=== PATIENT | female | born 1950 | race Caucasian/White ===

== ENCOUNTER 2018-09-23 21:15 | Emergency (ER) | payer OTHER ==
--- OUTSIDE RECORDS SUMMARY | 2018-09-23 21:17 | XMS REPORT ---
:1950 [facility] Address [address] [place] [address] [address]. [address] [place] [address] Care Team Providers Name Role Phone ENID RAE Unavailable Unavailable Problems This patient has no known problems. Allergies, Adverse Reactions, Alerts This patient has no known allergies or adverse reactions. Medications This patient has no known medications. Results Test Description Test Time Test Comments Text Results Atomic Results Result Comments PLATELET AGGREGATION: FUNCTION SCREEN 2016-07-16 10:08:00 Test Item Value Reference Range Comments WEAK ADP RESULT(BEAKER) (test dtnr=1158) 79 % 60-91 PLATELET FUNCTION SCREEN INTERP (BEAKER) 60-100% indicates normal platelet (test ojbv=1781) function MIFT-QCQTZBWYAZJ-5800 (BEAKER) (test Emanuel Rosas M.D. (electonic czrj=1235) signature) PLATELET COUNT AGG (BEAKER) (test 132 K/CU MM 150-430 nomm=4227) Platelet Function Screen results may be falsely low with platelet counts<100, 000/cu mm.POCT-GLUCOSE [id number] 12:30:00 Test Item Value Reference Range Comments POC-GLUCOSE METER (BEAKER) 102 mg/dL 70-110 TESTED AT [address] (test gkky=2915) [place] [id number] HEMOGLOBIN [id number] 10:45:00 Test Item Value Reference Range Comments HEMOGLOBIN A1C (BEAKER) (test hnrn=002) 7.1 % 4.3-6.1 POCT-GLUCOSE [id number] 07:42:00 Test Item Value Reference Range Comments POC-GLUCOSE METER (BEAKER) 118 mg/dL 70-110 TESTED AT [address] (test ynpn=9823) [facility] [address] [id number] 01:11:00 Test Item Value Reference Range Comments PHOSPHORUS (BEAKER) (test jehd=741) 2.7 mg/dL 2.3-4.7 [id number] 01:11:00 Test Item Value Reference Range Comments MAGNESIUM (BEAKER) (test xxyp=039) 1.7 mg/dL 1.6-2.6 BASIC METABOLIC [id number] 01:11:00 Test Item Value Reference Range Comments SODIUM (BEAKER) (test 137 meq/L 136-145 sduh=734) POTASSIUM (BEAKER) (test 3.8 meq/L 3.5-5.1 prdp=063) CHLORIDE (BEAKER) (test 101 meq/L 98-107 cpsd=872) CO2 (BEAKER) (test 29 meq/L 22-29 hsnn=538) BLOOD UREA NITROGEN 11 mg/dL 7-21 (BEAKER) (test pcvo=942) CREATININE (BEAKER) (test 0.71 mg/dL 0.57-1.25 gove=269) GLUCOSE RANDOM (BEAKER) 129 mg/dL 70-105 (test qtrc=314) CALCIUM (BEAKER) (test 9.0 mg/dL 8.4-10.2 vjve=111) EGFR (BEAKER) (test 83 mL/min/1.73 sq m ESTIMATED GFR IS NOT vhsj=2346) ACCURATE CREATININE CLEARANCE IN PREDICTING GLOMERULAR FILTRATION RATE. ESTIMATED GFR IS NOT APPLICABLE FOR DIALYSIS PATIENTS. CBC W/PLT COUNT & AUTO [id number] 00:57:00 Test Item Value Reference Range Comments WHITE BLOOD CELL COUNT (BEAKER) (test hnyq=269) 10.6 K/ L 4.0-10.0 RED BLOOD CELL COUNT (BEAKER) (test lcvd=587) 4.50 M/ L 4.00-5.00 HEMOGLOBIN (BEAKER) (test bgfr=851) 12.4 GM/DL 12.0-15.0 HEMATOCRIT (BEAKER) (test wzog=436) 37.6 % 36.0-45.0 MEAN CORPUSCULAR VOLUME (BEAKER) (test nwmk=220) 83.6 fL 82.0-99.0 MEAN CORPUSCULAR HEMOGLOBIN (BEAKER) (test 27.5 pg 27.0-33.0 dhsl=558) MEAN CORPUSCULAR HEMOGLOBIN CONC (BEAKER) (test 32.9 GM/DL 32.0-36.0 bdro=633) RED CELL DISTRIBUTION WIDTH (BEAKER) (test 12.8 % 10.3-14.2 nhol=587) PLATELET COUNT (BEAKER) (test abup=280) 244 K/CU MM 150-430 MEAN PLATELET VOLUME (BEAKER) (test rhaf=344) 6.8 fL 6.5-10.5 NUCLEATED RED BLOOD CELLS (BEAKER) (test 0 /100 WBC 0-0 eeyd=385) NEUTROPHILS RELATIVE PERCENT (BEAKER) (test 56 % vduk=768) LYMPHOCYTES RELATIVE PERCENT (BEAKER) (test 27 % djzn=780) MONOCYTES RELATIVE PERCENT (BEAKER) (test 11 % ezbp=669) EOSINOPHILS RELATIVE PERCENT (BEAKER) (test 5 % zogs=473) BASOPHILS RELATIVE PERCENT (BEAKER) (test 0 % pvyc=579) NEUTROPHILS ABSOLUTE COUNT (BEAKER) (test 5.96 K/ L 1.80-8.00 vxuu=043) LYMPHOCYTES ABSOLUTE COUNT (BEAKER) (test 2.89 K/ L 1.48-4.50 mbga=809) MONOCYTES ABSOLUTE COUNT (BEAKER) (test 1.12 K/ L 0.00-1.30 lcky=649) EOSINOPHILS ABSOLUTE COUNT (BEAKER) (test 0.57 K/ L 0.00-0.50 scqm=381) BASOPHILS ABSOLUTE COUNT (BEAKER) (test 0.05 K/ L 0.00-0.20 qpfx=607) 0.00POCT-GLUCOSE [id number] 21:49:00 Test Item Value Reference Range Comments POC-GLUCOSE METER (BEAKER) 172 mg/dL 70-[address] [facility] [address] [facility] (test kxws=5229) [facility] [id number]
[2018-09-23] MEDS ORDERED: ALBUTEROL 2.5 MG/3 ML NEB SOL ONE (22:17)
[2018-09-23] MEDS ORDERED: IPRATROPIUM BROM 0.5MG/2.5ML ONE (22:17)
[2018-09-23 22:58] LABS: Absolute Lymphocytes (CBC) 3.9 K/uL (0.7-4.9); Absolute Monocytes 0.8 K/uL (0.1-1.3); Absolute Neutrophil 4.1 K/uL (1.8-8.0); Basophils % 2.2 % (0-1.3); Eosinophils % 8.8 % (0-4.4); Hematocrit 43.1 % (36.0-45.0); Lymphocytes % 39.7 % (15.3-44.8); MPV 8.9 fL (7.6-11.3); Monocytes % 7.7 % (3.3-12.3); RBC Red Blood Cell Count 4.98 M/uL (3.86-4.86)
[2018-09-23 22:59] LABS: Protime INR 1.03
[2018-09-23 23:11] LABS: ALT/SGPT 37 U/L (12-78); AST/SGOT 23 U/L (15-37); BUN Blood Urea Nitrogen 10 mg/dL (7-18); Bicarbonate 30 mmol/L (21-32); Glucose Level 262 mg/dL (74-106); Potassium 3.4 mmol/L (3.5-5.1); Sodium Level 139 mmol/L (136-145)
[2018-09-23 23:12] LABS: Albumin 3.7 g/dL (3.4-5.0); Alkaline Phosphatase 54 U/L (45-117); Bilirubin Direct 0.2 mg/dL (0-0.2); Bilirubin Total 0.5 mg/dL (0.2-1.0); Magnesium 1.9 mg/dL (1.8-2.4); NT PRO-BNP 50 pg/mL (<125); Protein, Total 7.8 g/dL (6.4-8.2); Troponin (Emerg Dept Use Only) < 0.02 ng/mL (0.0-0.045)
[2018-09-24] MEDS ORDERED: INSULIN -REGULAR HUMAN 50 UNIT/0.5 ML ML ONE (00:06)
[2018-09-24] MEDS ORDERED: METHYLPREDNISOLONE 125 MG INJ ONE (00:07)
--- NOTE | 2018-09-24 02:41 | ER ---
Nurse's Notes [facility] Name: Sarah Parnell Age: 67 yrs Sex: Female : 1950 Arrival Date: 09/23/2018 Time: 21:20 Bed 20 Private MD: Diagnosis: Shortness of breath Presentation: 09/23 21:45 Acuity: ALTON 3 ea 21:45 Presenting complaint: Patient states: Pt reports she started feeling short of breath in ea the past couple of days, started having a cough and congestion. Transition of care: patient was not received from another setting of care. Onset of symptoms was September 23, 2018. Risk Assessment: Do you want to hurt yourself or someone else? Patient reports no desire to harm self or others. Initial Sepsis Screen: Does the patient meet any 2 criteria? No. Patient's initial sepsis screen is negative. Does the patient have a suspected source of infection? No. Patient's initial sepsis screen is negative. Care prior to arrival: None. 21:45 Method Of Arrival: Wheelchair ea Triage Assessment: 21:45 General: Appears uncomfortable, Behavior is calm, cooperative, appropriate for age. ea Pain: Denies pain. EENT: Reports nasal congestion. EENT: Reports nasal congestion. Neuro: Level of Consciousness is awake, alert, obeys commands, Oriented to person, place, time, situation. Cardiovascular: Patient's skin is warm and dry. flavio lower extremity edema. Respiratory: Reports Airway is patent Respiratory effort is even, unlabored, Respiratory pattern is regular, symmetrical, Breath sounds are coarse bilaterally. Breath sounds with wheezes bilaterally. Parent/caregiver reports the patient having cough that is. GI: No signs and/or symptoms were reported involving the gastrointestinal system. Derm: Skin is pink, warm \T\ dry. Historical: - Allergies: 23:00 NKA; ea - Home Meds: 23:00 Metformin Oral [Active]; Synthroid 225 mcg Oral tab once daily [Active]; unknown BP med ea [Active]; venlafaxine Oral [Active]; Wellbutrin 100 mg Oral tab 1 tab 3 times per day [Active]; - PMHx: 23:00 Hypothyroidism; Hypertension; Diabetes - NIDDM; Depression; ea - PSHx: 23:00 lap band; Abdominal surgery infection; Ovarian cyst; ea - Immunization history:: Adult Immunizations up to date. - Social history:: Smoking status: Patient/guardian denies using tobacco. - Ebola Screening: : No symptoms or risks identified at this time. Screenin:40 Abuse screen: Denies threats or abuse. Nutritional screening: No deficits noted. ea Tuberculosis screening: No symptoms or risk factors identified. Fall Risk None identified. Assessment: 21:45 Reassessment: See triage assessment. Pain: Denies pain. ea 22:30 Reassessment: Patient and/or family updated on plan of care and expected duration. Pain ea level reassessed. Patient is alert, oriented x 3, equal unlabored respirations, skin warm/dry/pink. 23:50 Reassessment: Patient and/or family updated on plan of care and expected duration. Pain ea level reassessed. Patient is alert, oriented x 3, equal unlabored respirations, skin warm/dry/pink. 09/24 01:40 Reassessment: Patient and/or family updated on plan of care and expected duration. Pain ea level reassessed. Patient is alert, oriented x 3, equal unlabored respirations, skin warm/dry/pink. Pt taken to CT. 01:55 Reassessment: Patient and/or family updated on plan of care and expected duration. Pain ea level reassessed. Patient is alert, oriented x 3, equal unlabored respirations, skin warm/dry/pink. Pt returned from CT. 02:50 Reassessment: Patient and/or family updated on plan of care and expected duration. Pain ea level reassessed. Attempted to call family for bulk picker, daughter did not answer phone, no voice message option. Will attempt to call again. Max [phone]. 03:22 Reassessment: Patient and/or family updated on plan of care and expected duration. Pain ea level reassessed. Patient is alert, oriented x 3, equal unlabored respirations, skin warm/dry/pink. Pt attempting to call daughter for ride. 03:30 Reassessment: Patient and/or family updated on plan of care and expected duration. Pain ea level reassessed. Patient is alert, oriented x 3, equal unlabored respirations, skin warm/dry/pink. Pt unable to contact daughter will attempt to call back at four. 04:22 Reassessment: Patient and/or family updated on plan of care and expected duration. Pain ea level reassessed. Pt resting with eyes closed, respirations even and unlabored. Chest expansions even and symmetrical. 04:28 Reassessment: Attempted to call pt family, will attempt to call family at 5 AM. ea 04:48 Reassessment: Patient and/or family updated on plan of care and expected duration. Pain ea level reassessed. Patient is alert, oriented x 3, equal unlabored respirations, skin warm/dry/pink. Discharge instructions given to patient, awaiting on daughter to call back. Patient states feeling better. 05:33 Reassessment: Attempted to call daughter, no answer. will attempt again at 0600. jb4 Vital Signs: 09/23 21:45 BP 120 / 60; Pulse 79; Resp 20; Temp 97.8; Pulse Ox 98% on R/A; Weight 95.25 kg; Height ea 5 ft. (152.40 cm); 22:30 BP 114 / 80; Pulse 89; Resp 20; Pulse Ox 96% on R/A; ea 23:45 BP 121 / 49; Pulse 79; Resp 20; Pulse Ox 96% on R/A; ea 09/24 00:00 BP 119 / 56 (art line/); Pulse 73; Resp 18; Temp 97.6; Pulse Ox 96% on R/A; ea 01:47 BP 107 / 77; Pulse 79; Resp 19; Pulse Ox 96% on R/A; ea 02:00 BP 108 / 49; Pulse 76; Resp 18; Pulse Ox 96% on R/A; ea 03:18 BP 117 / 52; Pulse 87; Resp 20; Temp 98.0; Pulse Ox 99% ; ea 04:20 BP 131 / 69; Pulse 88; Resp 18; Pulse Ox 95% on R/A; ea 09/23 21:45 Body Mass Index 41.01 (95.25 kg, 152.40 cm) ea ED Course: 09/23 21:20 Patient arrived in ED. am2 21:30 Inserted saline lock: 20 gauge in right forearm, using aseptic technique. ea 21:44 Chitra Zapata, VELIA is Primary Nurse. ea 21:45 Tejinder Pearson PA is PHCP. cp 21:45 Tejinder Santos MD is Attending Physician. cp 21:45 Patient has correct armband on for positive identification. Placed in gown. Bed in low ea position. Call light in reach. Side rails up X2. Pulse ox on. NIBP on. 21:45 Arm band placed on right wrist. Patient placed in an exam room, on a stretcher, on ea nuclear monitoring technician, on pulse oximetry. 21:45 Patient maintains SpO2 saturation greater than 95% on room air. ea 22:33 XRAY Chest (1 view) In Process Unspecified. EDMS 22:55 Triage completed. ea 09/24 02:14 CT Chest For PE Angio In Process Unspecified. EDMS 03:19 No provider procedures requiring assistance completed. ea 03:48 CT completed. Patient tolerated procedure well. Patient moved to CT via stretcher. Patient moved back from CT. 04:44 IV discontinued, intact, bleeding controlled, No redness/swelling at site. Pressure ea dressing applied. Administered Medications: 09/23 22:10 Drug: Albuterol - atroVENT (3:1) (2.5 mg - 0.5 mg) 3 ml Route: Nebulizer; ea 22:30 Follow up: Response: No adverse reaction ea 23:45 Drug: Insulin Regular Human 5 units {Co-Signature: sigrid (Stephen Shaw RN).} Route: IVP; ea Site: right forearm; 09/24 04:04 Follow up: Response: No adverse reaction ea 00:00 Drug: SOLU-Medrol 125 mg Route: IVP; Site: right antecubital; ea 01:39 Follow up: Response: No adverse reaction ea Point of Care Testing: Blood Glucose: 02:27 Blood Glucose: 184 mg/dL; ea Ranges: Outcome: 02:40 Discharge ordered by MD. rr5 04:49 Condition: improved ea 04:49 Discharge instructions given to patient, Instructed on discharge instructions, follow up and referral plans. medication usage, Demonstrated understanding of instructions, follow-up care, medications, Prescriptions given X 3. 06:50 Discharged to home ambulatory, with family. jb4 06:56 Patient left the ED. mt Signatures: Dispatcher [employer] Moshe Leavitt Tejinder Pearson PA PA cp Bryson, James, RN RN jb4 Colette Jackson [place] Chitra Zapata RN RN ea Roque, Raymond, RN RN rr5 Stephen [email or web address] Corrections: (The following items were deleted from the chart) 05/20 22:55 21:45 BP 120 / 60; Pulse 79bpm; Resp 18bpm; Pulse Ox 98% RA; Temp 97.8F; 95.25 kg; ea Height 5 ft.; BMI: 41.0; ea 09/24 03:32 02:50 Reassessment: Patient and/or family updated on plan of care and expected ea duration. Pain level reassessed. Attempted to call family for bulk picker, daughter did not answer phone, no voice message option. Will attempt to call again ea
--- NOTE | 2018-09-24 02:42 | EDPHYS ---
Physician Documentation [facility] Name: Sarah Parnell Age: 67 yrs Sex: Female : 1950 Arrival Date: 09/23/2018 Time: 21:20 Bed 20 Private MD: ED Physician Tejinder Santos HPI: 09/23 22:00 This 67 yrs old Female presents to ER via Wheelchair with complaints of Chest cp Pain, Shortness Of Breath. 22:00 The patient has shortness of breath at rest. Onset: The symptoms/episode began/occurred cp 3 day(s) ago. Duration: The symptoms are continuous. Associated signs and symptoms: Pertinent negatives: chest pain, productive cough, diaphoresis, fever, hemoptysis, vomiting. Severity of symptoms: in the emergency department the symptoms are unchanged despite home interventions. The patient has experienced similar episodes in the past, multiple times. Historical: - Allergies: 23:00 NKA; ea - Home Meds: 23:00 Metformin Oral [Active]; Synthroid 225 mcg Oral tab once daily [Active]; unknown BP med ea [Active]; venlafaxine Oral [Active]; Wellbutrin 100 mg Oral tab 1 tab 3 times per day [Active]; - PMHx: 23:00 Hypothyroidism; Hypertension; Diabetes - NIDDM; Depression; ea - PSHx: 23:00 lap band; Abdominal surgery infection; Ovarian cyst; ea - Immunization history:: Adult Immunizations up to date. - Social history:: Smoking status: Patient/guardian denies using tobacco. - Ebola Screening: : No symptoms or risks identified at this time. ROS: 22:20 Constitutional: Negative for body aches, chills, fever, poor PO intake. cp 22:20 Eyes: Negative for injury, pain, redness, and discharge. cp 22:20 ENT: Negative for drainage from ear(s), ear pain, sore throat, difficulty swallowing, difficulty handling secretions. 22:20 Cardiovascular: Negative for chest pain, edema, palpitations. 22:20 Respiratory: Positive for cough, with no reported sputum, shortness of breath, Negative for hemoptysis. 22:20 Abdomen/GI: Negative for abdominal pain, nausea, vomiting, and diarrhea, constipation, black/tarry stool, rectal bleeding. 22:20 Back: Negative for pain at rest, pain with movement, radiated pain. 22:20 : Negative for urinary symptoms. 22:20 Skin: Negative for cellulitis, rash. 22:20 Neuro: Negative for altered mental status, dizziness, headache, syncope, weakness. 22:20 All other systems are negative. Exam: 22:25 Constitutional: The patient appears in no acute distress, alert, awake, cp non-diaphoretic, non-toxic, well developed, well nourished, obese. 22:25 Head/Face: Normocephalic, atraumatic. cp 22:25 Eyes: Periorbital structures: appear normal, Conjunctiva: normal, no exudate, no injection, Sclera: no appreciated abnormality, Lids and lashes: appear normal, bilaterally. 22:25 ENT: External ear(s): are unremarkable, Ear canal(s): are normal, clear, TM's: dullness, bilaterally, Nose: is normal, Mouth: Lips: moist, Oral mucosa: pink and intact, moist, Posterior pharynx: is normal, airway is patent, no erythema, no exudate. 22:25 Neck: ROM/movement: is normal, is supple, without pain, no range of motions limitations, no meningismus, no nuchal rigidity, Lymph nodes: no appreciated lymphadenopathy. 22:25 Chest/axilla: Inspection: normal, Palpation: is normal, no crepitus, no tenderness. 22:25 Cardiovascular: Rate: normal, Rhythm: regular, Edema: is not appreciated, JVD: is not appreciated. 22:25 Respiratory: the patient does not display signs of respiratory distress, Respirations: labored breathing, is not present, intercostal retractions, are absent, tachypnea, is not appreciated, Breath sounds: decreased breath sounds, that are mild, throughout, stridor, is not appreciated, wheezing: is not appreciated. 22:25 Abdomen/GI: Inspection: obese Bowel sounds: active, all quadrants, Palpation: abdomen is soft and non-tender, in all quadrants. 22:25 Back: pain, is absent, ROM is normal. 22:25 Skin: cellulitis, is not appreciated, no rash present. 22:25 Neuro: Orientation: to person, place \T\ time. Mentation: is normal, Cerebellar function: is grossly normal, Motor: moves all fours, strength is normal. Vital Signs: 21:45 BP 120 / 60; Pulse 79; Resp 20; Temp 97.8; Pulse Ox 98% on R/A; Weight 95.25 kg; Height ea 5 ft. (152.40 cm); 22:30 BP 114 / 80; Pulse 89; Resp 20; Pulse Ox 96% on R/A; ea 23:45 BP 121 / 49; Pulse 79; Resp 20; Pulse Ox 96% on R/A; ea 09/24 00:00 BP 119 / 56 (art line/); Pulse 73; Resp 18; Temp 97.6; Pulse Ox 96% on R/A; ea 01:47 BP 107 / 77; Pulse 79; Resp 19; Pulse Ox 96% on R/A; ea 02:00 BP 108 / 49; Pulse 76; Resp 18; Pulse Ox 96% on R/A; ea 03:18 BP 117 / 52; Pulse 87; Resp 20; Temp 98.0; Pulse Ox 99% ; ea 04:20 BP 131 / 69; Pulse 88; Resp 18; Pulse Ox 95% on R/A; ea 09/23 21:45 Body Mass Index 41.01 (95.25 kg, 152.40 cm) ea MDM: 09/23 21:46 Patient medically screened. colleen 22:15 Differential diagnosis: asthma, CHF exacerbation, Chronic Obstructive Pulmonary Disease cp pneumonia, pulmonary edema, Pulmonary Embolism Unstable Angina. 09/24 02:38 Data reviewed: vital signs, nurses notes, lab test result(s), EKG, radiologic studies, cp CT scan, plain films, and as a result, I will discharge patient. 02:38 Antibiotic administration: Not indicated, the patient does not have an appreciated cp infiltrate. Test interpretation: by ED physician or midlevel provider: ECG, plain radiologic studies. Response to treatment: the patient's symptoms have markedly improved after treatment, VSS. Symptoms markedly improved after treatment. Patient observed resting comfortably in exam room w/o use of supplemental oxygen, and as a result, I will discharge patient. 09/23 21:46 Order name: Basic Metabolic Panel; Complete Time: 23:17 bb 09/23 23:17 Interpretation: Normal except: K 3.4; GLUC 262; GFR 70. cp 09/23 21:46 Order name: CBC with Diff; Complete Time: 23:17 bb 09/23 23:17 Interpretation: Normal except: RBC 4.98; ABBY% 41.6; EOSINOPHIL % 8.8; BASO% 2.2. 09/23 21:46 Order name: LFT's; Complete Time: 23:17 09/23 23:18 Interpretation: Normal except: GLOB 4.1; A/G 0.9. 09/23 21:46 Order name: Magnesium; Complete Time: 23:17 09/23 21:46 Order name: NT PRO-BNP; Complete Time: 23:17 09/23 21:46 Order name: PT-INR; Complete Time: 00:04 09/23 21:46 Order name: Troponin (emerg Dept Use Only); Complete Time: 23:17 09/23 21:46 Order name: XRAY Chest (1 view) 09/23 23:56 Order name: LAB Add On 09/23 23:57 Order name: D-Dimer; Complete Time: 00:04 EDGA 09/24 00:04 Interpretation: Abnormal: D-DIMER 898. 09/24 00:04 Order name: CT Chest For PE Angio 09/23 21:46 Order name: EKG; Complete Time: 22:03 09/23 21:46 Order name: Cardiac monitoring; Complete Time: 23:37 09/23 21:46 Order name: EKG - Nurse/Tech; Complete Time: 22:30 09/23 21:46 Order name: IV Saline Lock; Complete Time: 22:51 09/23 21:46 Order name: Labs collected and sent; Complete Time: 22:51 09/23 21:46 Order name: O2 Per Protocol; Complete Time: 22:30 09/23 21:46 Order name: O2 Sat Monitoring; Complete Time: 22:30 bb Administered Medications: 09/23 22:10 Drug: Albuterol - atroVENT (3:1) (2.5 mg - 0.5 mg) 3 ml Route: Nebulizer; ea 22:30 Follow up: Response: No adverse reaction ea 23:45 Drug: Insulin Regular Human 5 units {Co-Signature: jb4 (Stephen Shaw RN).} Route: IVP; ea Site: right forearm; 09/24 04:04 Follow up: Response: No adverse reaction ea 00:00 Drug: SOLU-Medrol 125 mg Route: IVP; Site: right antecubital; ea 01:39 Follow up: Response: No adverse reaction ea Point of Care Testing: Blood Glucose: 02:27 Blood Glucose: 184 mg/dL; ea Ranges: Critical Glucose Levels:Adult <50 mg/dl or >400 mg/dl <40 mg/dl or >180 mg/dl Disposition: 09:57 Co-signature as Attending Physician, Tejinder Santos MD I agree with the assessment and colleen plan of care. Disposition: 09/24/18 02:40 Discharged to Home. Impression: Shortness of breath. - Condition is Stable. - Discharge Instructions: Aspirin and Your Heart, Shortness of Breath. - Prescriptions for Prednisone 20 mg Oral Tablet - take 2 tablet by ORAL route once daily for 5 days; 10 tablet. Albuterol Sulfate 2.5 mg /3 mL (0.083 %) Inhalation Solution for Nebulization - inhale 1 unit by NEBULIZATION route every 8 hours As needed; 1 box. Albuterol Sulfate 90 mcg/actuation - inhale 1-2 puff by INHALATION route every 4-6 hours; 1 Inhaler. - Medication Reconciliation Form, Thank You Letter, Antibiotic Education, Prescription Opioid Use form. - Follow up: Private Physician; When: 1 - 2 days; Reason: Recheck today's complaints. - Problem is new. - Symptoms have improved. Signatures: Dispatcher [employer] [facility] Tejinder Santos MD MD cha Ballard, Brenda, RN RN Tejinder Diehl PA PA cp Thompson, Moriah mt Antunez, Elena RN Sebastian Navas ea RN RN rr5 Stephen Shaw RN [email or web address] Corrections: (The following items were deleted from the chart) 09/23 23:58 23:57 D-DIMER+COAG.LAB.BRZ ordered. [facility] 09/24 06:56 02:40 09/24/2018 02:40 Discharged to Home. Impression: Shortness of breath. Condition mt is Stable. Forms are Medication Reconciliation Form, Thank You Letter, Antibiotic Education, Prescription Opioid Use. Follow up: Private Physician; When: 1 - 2 days; Reason: Recheck today's complaints. Problem is new. Symptoms have improved. rr5
--- NOTE | 2018-09-24 06:15 | EKG ---
Test Date: 2018-09-23 Test Time: 21:36:09 Prop Drawer: VALERIE MEASUREMENT RESULTS: Intervals: Rate: 81 [place]: 170 QRSD: 104 QT: 420 QTc: 487 [place]: P: 59 [place]: 170 QRS: 18 T: 58 INTERPRETIVE STATEMENTS: Normal sinus rhythm Possible Inferior infarct, age undetermined Cannot rule out Anterior infarct, age undetermined Abnormal ECG Compared to ECG 07/13/2016 19:30:56 Myocardial infarct finding now present Electronically Signed On 09-24-18 06:14:40 CDT by Kingsley Castanon
[2018-09-24 07:30] VITALS: TEMP 98
[2018-09-24 07:31] VITALS: BP 131/69; O2SAT 95
--- NOTE | 2018-09-24 08:28 | RAD REPORT ---
EXAM DESCRIPTION: RAD - Chest Single View - 09/23/2018 10:32 pm CLINICAL HISTORY: CHEST PAIN Chest pain. COMPARISON: Chest Single View dated 07/13/2016; Chest Single View dated 07/12/2016; CHEST SINGLE VIEW da nasrin 02/02/2015; CHEST SINGLE VIEW dated 06/16/2013; Chest For Pe Angio dated 09/24/2018 FINDINGS: Portable technique limits examination quality. Mild interstitial pulmonary edema likely present. The heart is normal in size. No displaced fractures .
--- NOTE | 2018-09-24 09:57 | RAD REPORT ---
EXAM DESCRIPTION: CT Angiography Chest With Intravenous Contrast CLINICAL HISTORY: The patient is 67 years old and is Female; SOB TECHNIQUE: Axial computed tomographic angiography images of the chest with intravenous contrast usin g pulmonary embolism protocol. Sagittal and coronal reformatted images were created and reviewed. This CT exam was performed using one or more of the following dose reduction techniques: automated exposure control, adjustment of the mA and/or kV according to patient size, and/or use of iterative reconstruction technique. MIP reconstructed images were created and reviewed. COMPARISON: No relevant prior studies available. FINDINGS: PULMONARY ARTERIES: The main pulmonary arteries and proximal segmental branches opacify normally and are without filling defect. AORTA: No acute findings. No thoracic aortic aneurysm. LUNGS: Unremarkable. No mass. No consolidation. PLEURAL SPACE: Unremarkable. No significant effusion. No pneumothorax. HEART: Unremarkable. No cardiomegaly. No significant pericardial effusion. No evidence of RV dysfunction. BONES/JOINTS: Minimal degenerative change of the spine is present. No acute fracture. No dis location. SOFT TISSUES: Unremarkable. LYMPH NODES: Unremarkable. No enlarged lymph nodes. TUBES, LINES AND DEVICES: A gastric lap band is present. IMPRESSION: The main pulmonary arteries and proximal segmental branches opacify normally and are wit hout filling defect. Remainder of the pulmonary vessels are inadequately evaluated secondary to mot ion artifact. Electronically signed by: Brook Walker MD 09/24/2018 2:15 AM CDT Due to temporary technical issues with the PACS/Fluency reporting system, reports are being signed by the in house radiologist as a courtesy to ensure prompt reporting. The interpreting radiologist is f ully responsible for the content of the report.
== END 2018-09-24 06:56 | disposition home or self-care (01) ==
LOC: ER 21:15
DX: R06.02 Shortness of breath (principal); R07.9 Chest pain, unspecified; E03.9 Hypothyroidism, unspecified; I10 Essential (primary) hypertension; E11.9 Type 2 diabetes mellitus without complications; F32.9 Major depressive disorder, single episode, unspecified; Z79.84 Long term (current) use of oral hypoglycemic drugs
CPT/HCPCS: 93005; 85025; 80048; 36415; 83735; 85610; 82962; 85379; 80076; 84484; 83880; 71275; 71045; 94640; 96375; 96374; 99285; Q9967; J2930

== ENCOUNTER 2019-06-18 10:47 | Emergency (ER) | payer OTHER ==
--- OUTSIDE RECORDS SUMMARY | 2019-06-18 10:49 | XMS REPORT ---
:1950 [facility] Address [address] [place] [address] [address] [place] [address] Care Team Providers Name Role Phone ENID RAE Kelsi Unavailable Unavailable Problems This patient has no known problems. Allergies, Adverse Reactions, Alerts This patient has no known allergies or adverse reactions. Medications This patient has no known medications. Results Test Description Test Time Test Comments Text Results Atomic Results Result Comments PLATELET AGGREGATION: FUNCTION SCREEN 2016-07-16 10:08:00 Test Item Value Reference Range Comments WEAK ADP RESULT(BEAKER) (test yryx=4506) 79 % 60-91 PLATELET FUNCTION SCREEN INTERP (BEAKER) 60-100% indicates normal platelet (test ipxk=4494) function [id number]-1585 (BEAKER) (test Emanuel Rosas M.D. (electonic txwu=7609) signature) PLATELET COUNT AGG (BEAKER) (test 132 K/CU MM 150-430 owtu=6022) Platelet Function Screen results may be falsely low with platelet counts<100, 000/cu mm.POCT-GLUCOSE [id number] 12:30:00 Test Item Value Reference Range Comments POC-GLUCOSE METER (BEAKER) 102 mg/dL 70-110 TESTED AT [place] [id number] [facility] (test xzwo=8852) [place] [address] HEMOGLOBIN [id number] 10:45:00 Test Item Value Reference Range Comments HEMOGLOBIN A1C (BEAKER) (test ctkl=985) 7.1 % 4.3-6.1 POCT-GLUCOSE [id number] 07:42:00 Test Item Value Reference Range Comments POC-GLUCOSE METER (BEAKER) 118 mg/dL 70-110 TESTED AT [place] [id number] [facility] (test bnfq=2482) [place] [id number] 01:11:00 Test Item Value Reference Range Comments PHOSPHORUS (BEAKER) (test otxa=075) 2.7 mg/dL 2.3-4.7 [id number] 01:11:00 Test Item Value Reference Range Comments MAGNESIUM (BEAKER) (test qgez=328) 1.7 mg/dL 1.6-2.6 BASIC METABOLIC [id number] 01:11:00 Test Item Value Reference Range Comments SODIUM (BEAKER) (test 137 meq/L 136-145 pypf=041) POTASSIUM (BEAKER) (test 3.8 meq/L 3.5-5.1 yngt=017) CHLORIDE (BEAKER) (test 101 meq/L 98-107 egko=092) CO2 (BEAKER) (test 29 meq/L 22-29 zrnv=639) BLOOD UREA NITROGEN 11 mg/dL 7-21 (BEAKER) (test eycx=872) CREATININE (BEAKER) (test 0.71 mg/dL 0.57-1.25 gost=569) GLUCOSE RANDOM (BEAKER) 129 mg/dL 70-105 (test pmaa=229) CALCIUM (BEAKER) (test 9.0 mg/dL 8.4-10.2 ukhe=540) EGFR (BEAKER) (test 83 mL/min/1.73 sq m ESTIMATED GFR IS NOT zhie=1713) ACCURATE CREATININE CLEARANCE IN PREDICTING GLOMERULAR FILTRATION RATE. ESTIMATED GFR IS NOT APPLICABLE FOR DIALYSIS PATIENTS. CBC W/PLT COUNT & AUTO [id number] 00:57:00 Test Item Value Reference Range Comments WHITE BLOOD CELL COUNT (BEAKER) (test fpnz=721) 10.6 K/ L 4.0-10.0 RED BLOOD CELL COUNT (BEAKER) (test ligh=191) 4.50 M/ L 4.00-5.00 HEMOGLOBIN (BEAKER) (test scqb=213) 12.4 GM/DL 12.0-15.0 HEMATOCRIT (BEAKER) (test knko=051) 37.6 % 36.0-45.0 MEAN CORPUSCULAR VOLUME (BEAKER) (test ufjs=258) 83.6 fL 82.0-99.0 MEAN CORPUSCULAR HEMOGLOBIN (BEAKER) (test 27.5 pg 27.0-33.0 yvxb=440) MEAN CORPUSCULAR HEMOGLOBIN CONC (BEAKER) (test 32.9 GM/DL 32.0-36.0 qitk=440) RED CELL DISTRIBUTION WIDTH (BEAKER) (test 12.8 % 10.3-14.2 arhp=502) PLATELET COUNT (BEAKER) (test deji=920) 244 K/CU MM 150-430 MEAN PLATELET VOLUME (BEAKER) (test ggrx=510) 6.8 fL 6.5-10.5 NUCLEATED RED BLOOD CELLS (BEAKER) (test 0 /100 WBC 0-0 wdes=833) NEUTROPHILS RELATIVE PERCENT (BEAKER) (test 56 % hywk=604) LYMPHOCYTES RELATIVE PERCENT (BEAKER) (test 27 % ahnf=147) MONOCYTES RELATIVE PERCENT (BEAKER) (test 11 % siea=747) EOSINOPHILS RELATIVE PERCENT (BEAKER) (test 5 % mqoa=865) BASOPHILS RELATIVE PERCENT (BEAKER) (test 0 % ysdg=741) NEUTROPHILS ABSOLUTE COUNT (BEAKER) (test 5.96 K/ L 1.80-8.00 udhf=768) LYMPHOCYTES ABSOLUTE COUNT (BEAKER) (test 2.89 K/ L 1.48-4.50 fdkk=861) MONOCYTES ABSOLUTE COUNT (BEAKER) (test 1.12 K/ L 0.00-1.30 qpzs=596) EOSINOPHILS ABSOLUTE COUNT (BEAKER) (test 0.57 K/ L 0.00-0.50 qbxt=126) BASOPHILS ABSOLUTE COUNT (BEAKER) (test 0.05 K/ L 0.00-0.20 dsij=681) 0.00POCT-GLUCOSE [id number] 21:49:00 Test Item Value Reference Range Comments POC-GLUCOSE METER (BEAKER) 172 mg/dL 70-110 TESTED AT [facility] [address] [place] [address] (test osna=3367) [facility] [address]
--- NOTE | 2019-06-18 11:33 | RAD REPORT ---
EXAM DESCRIPTION: RAD - Chest Single View - 06/18/2019 11:26 am CLINICAL HISTORY: weakness Chest pain. COMPARISON: Chest Pa And Lat (2 Views) dated 01/15/2019; Chest Single View dated 09/23/2018; Chest Sin gle View dated 07/13/2016; Chest Single View dated 07/12/2016 FINDINGS: Portable technique limits examination quality. The lungs are grossly clear. The heart is normal in size. No displaced fractures. IMPRESSION: No acute intrathoracic process suspected.
[2019-06-18 12:30] LABS: Absolute Lymphocytes (CBC) 2.9 K/uL (0.7-4.9); Basophils % 0.2 % (0-1.3); Hematocrit 43.4 % (36.0-45.0); Lymphocytes % 32.5 % (15.3-44.8); MPV 8.9 fL (7.6-11.3); RBC Red Blood Cell Count 5.08 M/uL (3.86-4.86)
[2019-06-18 12:37] LABS: Protime INR 1.07
[2019-06-18 12:51] LABS: Albumin 3.5 g/dL (3.4-5.0); Bilirubin Direct 0.1 mg/dL (0-0.2); Bilirubin Total 0.5 mg/dL (0.2-1.0); Magnesium 2.2 mg/dL (1.8-2.4); Protein, Total 8.1 g/dL (6.4-8.2); Troponin (Emerg Dept Use Only) 0.04 ng/mL (0.0-0.045)
--- NOTE | 2019-06-18 13:46 | ER ---
Nurse's Notes [facility] Name: Sarah Parnell Age: 68 yrs Sex: Female : 1950 Arrival Date: 06/18/2019 Time: 10:49 Bed 5 Private MD: Diagnosis: Hyperglycemia, unspecified;Diabetes Mellitus Presentation: 06/18 10:53 Presenting complaint: EMS states: Home BGL 497, 363 after 15units insulin. Pt reports hb feeling "not right.". Transition of care: patient was not received from another setting of care. Onset of symptoms was June 18, 2019. Risk Assessment: Do you want to hurt yourself or someone else? Patient reports no desire to harm self or others. Initial Sepsis Screen: Does the patient meet any 2 criteria? No. Patient's initial sepsis screen is negative. Does the patient have a suspected source of infection? No. Patient's initial sepsis screen is negative. Care prior to arrival: None. 10:53 Method Of Arrival: EMS: [facility] 10:53 Acuity: ALTON 3 hb Triage Assessment: 10:55 General: Appears in no apparent distress. Behavior is calm, cooperative. Pain: Pain hb currently is 5 out of 10 on a pain scale. EENT: No signs and/or symptoms were reported regarding the EENT system. Neuro: Level of Consciousness is awake, alert, obeys commands, Oriented to person, place, time, situation. Cardiovascular: Heart tones S1 S2 present Capillary refill < 3 seconds Patient's skin is warm and dry. Respiratory: Airway is patent Respiratory effort is even, unlabored, Respiratory pattern is regular, symmetrical, Breath sounds are clear bilaterally. GI: No signs and/or symptoms were reported involving the gastrointestinal system. : No signs and/or symptoms were reported regarding the genitourinary system. Derm: Skin is intact, is healthy with good turgor, Skin is pink, warm \\T\\ dry. Musculoskeletal: No signs and/or symptoms reported regarding the musculoskeletal system. Historical: - Allergies: 10:55 NKA; hb - Home Meds: 10:55 Metformin Oral [Active]; Synthroid 225 mcg Oral tab once daily [Active]; unknown BP med hb [Active]; venlafaxine Oral [Active]; Wellbutrin 100 mg Oral tab 1 tab 3 times per day [Active]; - PMHx: 10:55 Depression; Hypertension; Hypothyroidism; COPD; Diabetes - IDDM; hb - PSHx: 10:55 lap band; Abdominal surgery infection; Ovarian cyst; hb - Immunization history:: Adult Immunizations up to date. - Coronavirus screen:: The patient has NOT traveled to [place] in the past 14 days. The patient has NOT had contact with known/suspected case of Coronavirus? Proceed with normal triage procedures. - Social history:: Smoking status: Patient denies any tobacco usage or history of. - Ebola Screening: : No symptoms or risks identified at this time. Screenin:56 Abuse screen: Denies threats or abuse. Denies injuries from another. Nutritional hb screening: No deficits noted. Tuberculosis screening: No symptoms or risk factors identified. Fall Risk None identified. Assessment: 11:00 General: SEE TRIAGE. hb 12:00 Reassessment: Patient appears in no apparent distress at this time. Patient and/or hb family updated on plan of care and expected duration. Pain level reassessed. Patient is alert, oriented x 3, equal unlabored respirations, skin warm/dry/pink. Vital Signs: 10:51 BP 156 / 87; Pulse 82; Resp 20; Temp 98.3; Pulse Ox 96% on R/A; Weight 74.39 kg; Height hb 5 ft. 2 in. (157.48 cm); Pain 5/10; 12:00 BP 127 / 100; Pulse 80; Resp 16; Pulse Ox 99% on R/A; hb 14:00 BP 126 / 86; Pulse 80; Resp 15; Pulse Ox 99% on R/A; hb 10:51 Body Mass Index 30.00 (74.39 kg, 157.48 cm) hb ED Course: 10:49 Patient arrived in ED. em1 10:51 Leidy Ronquillo, RN is Primary Nurse. hb 10:52 Marty Davis MD is Attending Physician. kdr 10:54 Triage completed. hb 10:55 Arm band placed on. hb 10:56 Patient has correct armband on for positive identification. Placed in gown. Bed in low hb position. Call light in reach. Side rails up X 1. 11:05 EKG done, by scientific technical writer. reviewed by Marty Davis MD. at1 11:19 Inserted saline lock: 20 gauge in right forearm, using aseptic technique. Blood hb collected. 12:12 IV discontinued, intact, bleeding controlled, No redness/swelling at site. Pressure hb dressing applied. 12:17 Lab(s) recollected. Inserted saline lock: 22 gauge in right forearm, using aseptic hb technique. Blood collected. 14:00 No provider procedures requiring assistance completed. IV discontinued, intact, hb bleeding controlled, No redness/swelling at site. Pressure dressing applied. Administered Medications: No medications were administered Outcome: 13:45 Discharge ordered by . kdr 14:20 Discharged to home ambulatory. hb 14:20 Condition: stable 14:20 Discharge instructions given to patient, family, Instructed on discharge instructions, follow up and referral plans. medication usage, Demonstrated understanding of instructions, follow-up care, medications. 14:24 Patient left the ED. hb Signatures: Marty Davis MD MD kdr Martinez, Eric em1 Colette Conley, supervisor lending activities EKG Tat1 Leidy Ronquillo, RN RN hb
--- NOTE | 2019-06-18 13:46 | EDPHYS ---
Physician Documentation [facility] Name: Sarah Parnell Age: 68 yrs Sex: Female : 1950 Arrival Date: 06/18/2019 Time: 10:49 Bed 5 Private MD: ED Physician Marty Davis HPI: 06/18 17:03 This 68 yrs old Female presents to ER via EMS with complaints of High Blood kdr Sugar. 17:03 The patient or guardian reports hyperglycemia. Onset: The symptoms/episode kdr began/occurred at an unknown time. Associated signs and symptoms: Pertinent positives: None. Pertinent negatives: None. Current symptoms: In the emergency department the patient's symptoms are unchanged from the initial presentation, The patient was feeling off and poorly this morning but now is back ot baseline. The patient has not experienced similar symptoms in the past. The patient has not recently seen a physician. Historical: - Allergies: 10:55 NKA; hb - Home Meds: 10:55 Metformin Oral [Active]; Synthroid 225 mcg Oral tab once daily [Active]; unknown BP med hb [Active]; venlafaxine Oral [Active]; Wellbutrin 100 mg Oral tab 1 tab 3 times per day [Active]; - PMHx: 10:55 Depression; Hypertension; Hypothyroidism; COPD; Diabetes - IDDM; hb - PSHx: 10:55 lap band; Abdominal surgery infection; Ovarian cyst; hb - Immunization history:: Adult Immunizations up to date. - Coronavirus screen:: The patient has NOT traveled to [place] in the past 14 days. The patient has NOT had contact with known/suspected case of Coronavirus? Proceed with normal triage procedures. - Social history:: Smoking status: Patient denies any tobacco usage or history of. - Ebola Screening: : No symptoms or risks identified at this time. ROS: 17:03 Constitutional: Negative for fever, chills, and weight loss, Eyes: Negative for injury, kdr pain, redness, and discharge, Neck: Negative for injury, pain, and swelling, Cardiovascular: Negative for chest pain, palpitations, and edema, Respiratory: Negative for shortness of breath, cough, wheezing, and pleuritic chest pain, Abdomen/GI: Negative for abdominal pain, nausea, vomiting, diarrhea, and constipation, Back: Negative for injury and pain, : Negative for injury, bleeding, discharge, and swelling, MS/Extremity: Negative for injury and deformity, Skin: Negative for injury, rash, and discoloration, Neuro: Negative for headache, weakness, numbness, tingling, and seizure activity. Psych: Negative for depression, anxiety, suicide ideation, homicidal ideation, and hallucinations, Allergy/Immunology: Negative for hives, rash, and allergies, Hematologic/Lymphatic: Negative for swollen nodes, abnormal bleeding, and unusual bruising. 17:03 Endocrine: Positive for High sugar. Exam: 17:03 Constitutional: This is a well developed, well nourished obese patient who is awake, kdr alert, and in no acute distress. Head/Face: Normocephalic, atraumatic. Eyes: Pupils equal round and reactive to light, extra-ocular motions intact. Lids and lashes normal. Conjunctiva and sclera are non-icteric and not injected. Cornea within normal limits. Periorbital areas with no swelling, redness, or edema. Neck: Trachea midline, no thyromegaly or masses palpated, and no cervical lymphadenopathy. Supple, full range of motion without nuchal rigidity, or vertebral point tenderness. No Meningismus. Chest/axilla: Normal chest wall appearance and motion. Nontender with no deformity. No lesions are appreciated. Cardiovascular: Regular rate and rhythm with a normal S1 and S2. No gallops, murmurs, or rubs. Normal PMI, no JVD. No pulse deficits. Respiratory: Lungs have equal breath sounds bilaterally, clear to auscultation and percussion. No rales, rhonchi or wheezes noted. No increased work of breathing, no retractions or nasal flaring. Abdomen/GI: Soft, non-tender, with normal bowel sounds. No distension or tympany. No guarding or rebound. No evidence of tenderness throughout. Back: No spinal tenderness. No costovertebral tenderness. Full range of motion. Skin: Warm, dry with normal turgor. Normal color with no rashes, no lesions, and no evidence of cellulitis. MS/ Extremity: Pulses equal, no cyanosis. Neurovascular intact. Full, normal range of motion. Neuro: Awake and alert, GCS 15, oriented to person, place, time, and situation. Cranial nerves II-XII grossly intact. Motor strength 5/5 in all extremities. Sensory grossly intact. Cerebellar exam normal. Normal gait. Psych: Awake, alert, with orientation to person, place and time. Behavior, mood, and affect are within normal limits. Vital Signs: 10:51 BP 156 / 87; Pulse 82; Resp 20; Temp 98.3; Pulse Ox 96% on R/A; Weight 74.39 kg; Height hb 5 ft. 2 in. (157.48 cm); Pain 5/10; 12:00 BP 127 / 100; Pulse 80; Resp 16; Pulse Ox 99% on R/A; hb 14:00 BP 126 / 86; Pulse 80; Resp 15; Pulse Ox 99% on R/A; hb 10:51 Body Mass Index 30.00 (74.39 kg, 157.48 cm) hb MDM: 13:45 Patient medically screened. kdr 17:03 Data reviewed: vital signs, nurses notes, lab test result(s), radiologic studies. [facility] 06/18 10:53 Order name: Basic Metabolic Panel [facility] 06/18 10:53 Order name: CBC with Diff [facility] 06/18 10:53 Order name: LFT's [facility] 06/18 10:53 Order name: Magnesium [facility] 06/18 10:53 Order name: NT PRO-BNP [facility] 06/18 10:53 Order name: PT-INR [facility] 06/18 10:53 Order name: Troponin (emerg Dept Use Only) [facility] 06/18 12:33 Order name: CBC with Automated Diff; Complete Time: 13:43 EDMS 06/18 12:50 Order name: Protime (+INR); Complete Time: 13:43 EDMS 06/18 12:52 Order name: Basic Metabolic Panel; Complete Time: 13:43 EDMS 06/18 12:52 Order name: Liver (Hepatic) Function; Complete Time: 13:43 EDMS 06/18 12:52 Order name: Troponin (Emerg Dept Use Only); Complete Time: 13:43 EDMS 06/18 12:52 Order name: NT PRO-BNP; Complete Time: 13:43 EDMS 06/18 12:52 Order name: Magnesium; Complete Time: 13:43 EDMS 06/18 10:53 Order name: XRAY Chest (1 view) [facility] 06/18 10:53 Order name: EKG; Complete Time: 10:55 [facility] 06/18 10:53 Order name: Cardiac monitoring; Complete Time: 11:24 [facility] 06/18 10:53 Order name: EKG - Nurse/Tech; Complete Time: 11:24 kdr 06/18 10:53 Order name: IV Saline Lock; Complete Time: : kdr 06/18 10:53 Order name: Labs collected and sent; Complete Time: :24 kdr 06/18 10:53 Order name: O2 Per Protocol; Complete Time: 11:24 kdr 06/18 10:53 Order name: O2 Sat Monitoring; Complete Time: 11:27 kdr 06/18 11:35 Order name: RAD; Complete Time: 12:31 EDND 06/18 11:54 Order name: Labs - recollect needed: all specimens; Complete Time: 12:17 iw Administered Medications: No medications were administered Disposition: 06/18/19 13:45 Discharged to Home. Impression: Hyperglycemia, unspecified, Diabetes Mellitus. - Condition is Stable. - Discharge Instructions: Hyperglycemia, [id number]. - Medication Reconciliation Form, Thank You Letter form. - Follow up: Private Physician; When: 2 - 3 days; Reason: If symptoms return, Further diagnostic work-up, Recheck today's complaints, Continuance of care, Re-evaluation by your physician. - Problem is new. - Symptoms have improved. Signatures: Dispatcher [employer] EDND Marty Davis MD MD kdr Alanis Brown RN RN iw Leidy Ronquillo RN RN hb Corrections: (The following items were deleted from the chart) 14:24 13:45 06/18/2019 13:45 Discharged to Home. Impression: Hyperglycemia, unspecified; hb Diabetes Mellitus. Condition is Stable. Forms are Medication Reconciliation Form, Thank You Letter, Antibiotic Education, Prescription Opioid Use. Follow up: Private Physician; When: 2 - 3 days; Reason: If symptoms return, Further diagnostic work-up, Recheck today's complaints, Continuance of care, Re-evaluation by your physician. Problem is new. Symptoms have improved. kdr
--- NOTE | 2019-06-18 17:59 | EKG ---
Test Date: 2019-06-18 Test Time: 10:57:33 Engineering Research Manager: GEMINI MEASUREMENT RESULTS: Intervals: Rate: 88 ND: 166 QRSD: 98 QT: 410 QTc: 496 [place]: P: 67 ND: 166 QRS: 19 T: 64 INTERPRETIVE STATEMENTS: Normal sinus rhythm Low voltage QRS Cannot rule out Anterior infarct, age undetermined Abnormal ECG Compared to ECG 09/23/2018 21:36:09 Low QRS voltage now present Myocardial infarct finding still present Electronically Signed On 06-18-19 17:58:10 BANK VAULT CUSTODIAN by Kingsley Castanon
[2019-06-19 20:24] VITALS: TEMP 98.3
[2019-06-19 20:26] VITALS: BP 127/100; O2SAT 99
== END 2019-06-18 14:24 | disposition home or self-care (01) ==
LOC: ER 10:47
DX: E11.65 Type 2 diabetes mellitus with hyperglycemia (principal); I10 Essential (primary) hypertension; E03.9 Hypothyroidism, unspecified; F32.9 Major depressive disorder, single episode, unspecified
CPT/HCPCS: 36415; 71045; 80048; 80076; 83735; 83880; 84484; 85025; 85610; 93005; 99284

== ENCOUNTER 2019-10-05 15:47 | Emergency (ER) | payer MEDICARE, OTHER ==
--- OUTSIDE RECORDS SUMMARY | 2019-10-05 16:14 | XMS REPORT | Clinical Summary ---
:1950 Author Organization [facility] [employer] [facility] Address [address] [place] [address] Care Team Providers Name Role Phone Unavailable Primary Care Provider Unavailable Allergies No Known Allergies Medications Medication Sig Dispensed Refills Start Date End Date Status albuterol Take 0.5 mLs (2.5 mg 100 each 0 07/15/2016 Active (PROVENTIL) 2.5 total) by mg/0.5 mL Nebu nebulization every 6 nebulizer solution (six) hours as needed. Active Problems Problem Noted Date Rib fracture 07/14/2016 Subdural hematoma 07/14/2016 Social History Tobacco Use Types Packs/Day Years Used Date Never Smoker Sex Assigned at Date Recorded Not on file Job Start Date Occupation Industry Not on file Not on file Not on file Travel History Travel Start Travel End No recent travel history available. Last Filed Vital Signs Not on file Plan of Treatment Not on file Results Not on fileafter 10/04/2018 Insurance Payer Benefit Plan / Group Subscriber ID Type Phone A [facility] - MEDICARE UNITED MEDICARE HMO xxxxxxxxx MGD CARE Advance Directives For more information, please contact:[facility] [employer] [id number], [place] [phone] Code Status Date Activated Date Inactivated Comments Full Code 07/14/2016 9:04 PM 07/15/2016 7:06 PM This code status was determined by: Patient
--- OUTSIDE RECORDS SUMMARY | 2019-10-05 16:15 | XMS REPORT ---
:1950 Author Organization [facility] Address [address] [place] [address] Dr. Lucas [address] [place] [id number] Care Team Providers Name Role Phone Kelsi RAE Attending Clinician Unavailable Kelsi RAE Admitting Clinician Unavailable Problems This patient has no known problems. Allergies, Adverse Reactions, Alerts This patient has no known allergies or adverse reactions. Medications This patient has no known medications. Procedures This patient has no known procedures. Results Test Description Test Time Test Comments Results Result Comments Source PLATELET AGGREGATION: FUNCTION SCREEN 2016-07-16 10:08:00 Test Item Value Reference Range Interpretation Comme nts WEAK ADP RESULT(BEAKER) (test code = 79 % 60-91 2135) PLATELET FUNCTION SCREEN INTERP 60-100% indicates normal platelet (BEAKER) (test code = 2173) function [id number] (BEAKER) (test Emanuel Rosas M.D. (electonic code = 2622) signature) PLATELET COUNT AGG (BEAKER) (test code 132 K/CU MM 150-430 L = 2656) Platelet Function Screen results may be falsely low with platelet counts<100,000/cu mm.POCT-GLUCOSE [id number] 12:30:00 Test Item Value Reference Range Interpretation Comments POC-GLUCOSE METER 102 mg/dL 70-[address] [facility] [address] ([place]) (test code = GERRY [place] [facility] 1538) [id number] HEMOGLOBIN [id number] 10:45:00 Test Item Value Reference Range Interpretation Comments HEMOGLOBIN A1C (BEAKER) (test code = 7.1 % 4.3-6.1 H 368) POCT-GLUCOSE [id number] 07:42:00 Test Item Value Reference Range Interpretation Comments POC-GLUCOSE METER 118 mg/dL 70-[address] [facility] [address] (BEAKER) (test code = [place] 1538) [id number] 01:11:00 Test Item Value Reference Range Interpretation Comments PHOSPHORUS (BEAKER) (test code = 2.7 mg/dL 2.3-4.7 604) [id number] 01:11:00 Test Item Value Reference Range Interpretation Comments MAGNESIUM (BEAKER) (test code = 1.7 mg/dL 1.6-2.6 627) BASIC METABOLIC [id number] 01:11:00 Test Item Value Reference Range Interpretation Comments SODIUM (BEAKER) 137 meq/L 136-145 (test code = 381) POTASSIUM (BEAKER) 3.8 meq/L 3.5-5.1 (test code = 379) CHLORIDE (BEAKER) 101 meq/L 98-107 (test code = 382) CO2 (BEAKER) (test 29 meq/L 22-29 code = 355) BLOOD UREA NITROGEN 11 mg/dL 7-21 (BEAKER) (test code = 354) CREATININE (BEAKER) 0.71 mg/dL 0.57-1.25 (test code = 358) GLUCOSE RANDOM 129 mg/dL 70-105 H (BEAKER) (test code = 652) CALCIUM (BEAKER) 9.0 mg/dL 8.4-10.2 (test code = 697) EGFR (BEAKER) (test 83 mL/min/1.73 ESTIMA RITESH GFR IS code = 1092) sq m NOT ACCURATE CREATININE CLEARANCE IN PREDICTING GLOMERULAR FILTRATION RATE . ESTIMATED GFR I S NOT APPLICABLE FOR DIALYSIS PATIEN TS. CBC W/PLT COUNT & AUTO [id number] 00:57:00 Test Item Value Reference Range Interpretation Comments WHITE BLOOD CELL COUNT (BEAKER) 10.6 K/ L 4.0-10.0 H (test code = 775) RED BLOOD CELL COUNT (BEAKER) 4.50 M/ L 4.00-5.00 (test code = 761) HEMOGLOBIN (BEAKER) (test code = 12.4 GM/DL 12.0-15.0 410) HEMATOCRIT (BEAKER) (test code = 37.6 % 36.0-45.0 411) MEAN CORPUSCULAR VOLUME (BEAKER) 83.6 fL 82.0-99.0 (test code = 753) MEAN CORPUSCULAR HEMOGLOBIN 27.5 pg 27.0-33.0 (BEAKER) (test code = 751) MEAN CORPUSCULAR HEMOGLOBIN CONC 32.9 GM/DL 32.0-36.0 (BEAKER) (test code = 752) RED CELL DISTRIBUTION WIDTH 12.8 % 10.3-14.2 (BEAKER) (test code = 412) PLATELET COUNT (BEAKER) (test 244 K/CU MM 150-430 code = 756) MEAN PLATELET VOLUME (BEAKER) 6.8 fL 6.5-10.5 (test code = 754) NUCLEATED RED BLOOD CELLS 0 /100 WBC 0-0 (BEAKER) (test code = 413) NEUTROPHILS RELATIVE PERCENT 56 % (BEAKER) (test code = 429) LYMPHOCYTES RELATIVE PERCENT 27 % (BEAKER) (test code = 430) MONOCYTES RELATIVE PERCENT 11 % (BEAKER) (test code = 431) EOSINOPHILS RELATIVE PERCENT 5 % (BEAKER) (test code = 432) BASOPHILS RELATIVE PERCENT 0 % (BEAKER) (test code = 437) NEUTROPHILS ABSOLUTE COUNT 5.96 K/ L 1.80-8.00 (BEAKER) (test code = 670) LYMPHOCYTES ABSOLUTE COUNT 2.89 K/ L 1.48-4.50 (BEAKER) (test code = 414) MONOCYTES ABSOLUTE COUNT (BEAKER) 1.12 K/ L 0.00-1.30 (test code = 415) EOSINOPHILS ABSOLUTE COUNT 0.57 K/ L 0.00-0.50 H (BEAKER) (test code = 416) BASOPHILS ABSOLUTE COUNT (BEAKER) 0.05 K/ L 0.00-0.20 (test code = 417) 0.00POCT-GLUCOSE [id number] 21:49:00 Test Item Value Reference Range Interpretation Comments POC-GLUCOSE METER 172 mg/dL 70-[address] [facility] [address] (BEAKER) (test code = GERRY [place] 1538) [id number]
[2019-10-05] MEDS ORDERED: IPRATROPIUM BROM 0.5MG/2.5ML ONE (16:43)
[2019-10-05] MEDS ORDERED: ALBUTEROL 2.5 MG/3 ML NEB SOL ONE (16:43)
--- NOTE | 2019-10-05 16:49 | RAD REPORT ---
EXAM DESCRIPTION: Dick Single View10/05/2019 4:24 pm CLINICAL HISTORY: sob COMPARISON: 06/2019 FINDINGS: The lungs appear clear of acute infiltrate. The heart is normal size IMPRESSION: No acute abnormalities displayed
[2019-10-05 17:20] LABS: Absolute Lymphocytes (CBC) 2.4 K/uL (0.7-4.9); Basophils % 1.3 % (0-1.3); Hematocrit 44.8 % (36.0-45.0); Lymphocytes % 23.1 % (15.3-44.8); MPV 9.1 fL (7.6-11.3); RBC Red Blood Cell Count 5.18 M/uL (3.86-4.86)
[2019-10-05 17:27] LABS: Protime INR 1.03
[2019-10-05 17:39] LABS: Albumin 3.7 g/dL (3.4-5.0); Bilirubin Direct 0.1 mg/dL (0-0.2); Bilirubin Total 0.3 mg/dL (0.2-1.0); Potassium 3.9 mmol/L (3.5-5.1); Protein, Total 8.4 g/dL (6.4-8.2); Troponin (Emerg Dept Use Only) 0.04 ng/mL (0.0-0.045)
[2019-10-05 17:49] LABS: Urine Bacteria <20 /HPF (<20); Urine Culture Reflex Order NOT NEEDED; Urine RBC NONE SEEN /HPF (NONE SEEN)
[2019-10-05] MEDS ORDERED: INSULIN -REGULAR HUMAN 50 UNIT/0.5 ML ML ONE (17:59)
[2019-10-05] MEDS ORDERED: NA CHLORIDE 0.9% 250 ML ONE (17:59)
[2019-10-05 19:56] VITALS: TEMP 97.9
[2019-10-05 20:01] VITALS: BP 130/63; O2SAT 99
--- NOTE | 2019-10-06 19:15 | EDPHYS ---
Physician Documentation [facility] Name: Sarah Parnell Age: 68 yrs Sex: Female : 1950 Arrival Date: 10/05/2019 Time: 15:49 Bed 18 Private MD: ED Physician Marty Davis HPI: 10/04 16:15 This 68 yrs old Female presents to ER via Unassigned with complaints of High cp Blood Sugar and Shortness of breath. 16:15 The patient has shortness of breath with light activity. Onset: The symptoms/episode cp began/occurred today. Duration: The symptoms are continuous, and are unchanged since they started. The patient's shortness of breath is aggravated by walking. The patient or guardian reports hyperglycemia, that was potentially precipitated by not taking prescribed medications, Treatment prior to arrival includes: taking additional insulin. Onset: The symptoms/episode began/occurred today. Associated signs and symptoms: Pertinent negatives: diarrhea, vomiting, headache, chest pain, abdominal pain. Historical: - Allergies: 15:49 NKA; rb1 16:18 Vancomycin; rb1 - Home Meds: 15:49 Metformin Oral [Active]; Wellbutrin 100 mg Oral tab 1 tab 3 times per day [Active]; rb1 Synthroid 225 mcg Oral tab once daily [Active]; unknown BP med [Active]; venlafaxine Oral [Active]; - PMHx: 15:49 COPD; Depression; Diabetes - IDDM; Diabetes - NIDDM; Hypertension; Hypothyroidism; rb1 16:18 kidney failure; Skin Cancer -back, neck, and arm; CHF; Blockage - unsure if it's in her rb1 neck or heart; - PSHx: 15:49 lap band; Abdominal surgery infection; Ovarian cyst; rb1 - Immunization history:: Adult Immunizations up to date, Pneumococcal vaccine is up to date, Flu vaccine is up to date. - Social history:: Smoking status: Patient denies any tobacco usage or history of. ROS: 16:19 Eyes: Negative for injury, pain, redness, and discharge. cp 16:19 Constitutional: Negative for body aches, chills, fever, poor PO intake. 16:19 ENT: Negative for ear pain, sore throat, difficulty swallowing, difficulty handling secretions. 16:19 Cardiovascular: Negative for chest pain, edema, palpitations. 16:19 Respiratory: Positive for shortness of breath, on exertion. Negative for cough. 16:19 Abdomen/GI: Negative for abdominal pain, nausea, vomiting, and diarrhea. 16:19 : Negative for urinary symptoms. 16:19 MS/extremity: Negative for injury or acute deformity, decreased range of motion. 16:19 Neuro: Negative for altered mental status, dizziness, headache, speech changes, syncope, weakness. 16:19 All other systems are negative. Exam: 16:20 Head/Face: Normocephalic, atraumatic. cp 16:20 Constitutional: The patient appears in no acute distress, alert, awake, non-diaphoretic, non-toxic, well developed, well nourished, obese. 16:20 Eyes: Periorbital structures: appear normal, Conjunctiva: normal, no exudate, no injection, Sclera: no appreciated abnormality, Lids and lashes: appear normal, bilaterally. 16:20 ENT: External ear(s): are unremarkable, Nose: is normal, Mouth: is normal, Posterior pharynx: is normal, airway is patent, no erythema, no exudate. 16:20 Chest/axilla: Inspection: normal, Palpation: is normal, no crepitus, no tenderness. 16:20 Cardiovascular: Rate: normal, Rhythm: regular, Edema: is not appreciated, JVD: is not appreciated. 16:20 Respiratory: the patient does not display signs of respiratory distress, Respirations: normal, no use of accessory muscles, no retractions, labored breathing, is not present, accessory muscle usage, is absent, intercostal retractions, are absent, Breath sounds: decreased breath sounds, are not appreciated, stridor, is not appreciated, wheezing: that is mild, is heard diffusely. 16:20 Abdomen/GI: Inspection: abdomen appears normal, Palpation: abdomen is soft and non-tender, in all quadrants. 16:20 Back: pain, is absent, ROM is normal. 16:20 Neuro: Orientation: to person, place \T\ time. Mentation: is normal, Motor: moves all fours, strength is normal. 16:22 ECG was reviewed by the Attending Physician. cp Vital Signs: 15:56 BP 137 / 94; Pulse 97; Resp 20; Pulse Ox 99% on R/A; rb1 16:30 BP 130 / 74; Pulse 88; Resp 18; Temp 97.9(TE); Pulse Ox 95% on R/A; Weight 119.29 kg rb1 (R); Height 5 ft. 2 in. (157.48 cm) (R); Pain 0/10; 17:15 BP 127 / 72; Pulse 84; Resp 14; Pulse Ox 100% on R/A; rb1 18:00 BP 141 / 94; Pulse 97; Resp 17; Pulse Ox 98% ; rb1 19:15 BP 130 / 63; Pulse 80; Resp 19; Pulse Ox 99% ; rr5 16:30 Body Mass Index 48.10 (119.29 kg, 157.48 cm) rb1 MDM: 19:14 Patient medically screened. 19:14 Data reviewed: vital signs, nurses notes, lab test result(s), EKG, radiologic studies, cp plain films, and as a result, I will discharge patient. 19:14 Test interpretation: by ED physician or midlevel provider: ECG. 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 Response to treatment: the patient's symptoms have markedly improved after treatment, and as a result, I will discharge patient. 10/04 16:00 Order name: Basic Metabolic Panel 10/04 16:00 Order name: CBC with Diff; Complete Time: 17:34 10/04 17:34 Interpretation: Normal except: RBC 5.18; HGB 15.1; EOSINOPHIL % 6.2; EOSA 0.7. 10/04 16:00 Order name: LFT's; Complete Time: 18:38 10/04 18:38 Interpretation: Normal except: TP 8.4; GLOB 4.7; A/G 0.8. 10/04 16:00 Order name: Magnesium; Complete Time: 18:38 10/04 16:00 Order name: NT PRO-BNP; Complete Time: 18:38 10/04 16:00 Order name: PT-INR; Complete Time: 18:38 10/04 16:00 Order name: Troponin (emerg Dept Use Only); Complete Time: 18:38 05 18:38 Interpretation: TROPED 0.04; Reviewed. 10/04 16:00 Order name: XRAY Chest (1 view); Complete Time: 17:34 10/04 18:39 Interpretation: Report review. 10/04 16:00 Order name: Urine Microscopic Only; Complete Time: 18:38 10/04 18:39 Interpretation: Reviewed. 05 16:01 Order name: Basic Metabolic Panel; Complete Time: 18:38 [facility] 10/04 18:38 Interpretation: Normal except: GLUC 397; BUN 19; GFR 52. 10/04 17:26 Order name: Glucose, Ancillary Testing; Complete Time: 17:34 EDIN 10/04 19:23 Order name: Glucose, Ancillary Testing [facility] 10/04 16:00 Order name: EKG; Complete Time: 16:01 10/04 16:00 Order name: Cardiac monitoring; Complete Time: 16:52 10/04 16:00 Order name: EKG - Nurse/Tech; Complete Time: 16:53 10/04 16:00 Order name: IV Saline Lock; Complete Time: 17:16 10/04 16:00 Order name: Labs collected and sent; Complete Time: 17:16 10/04 16:00 Order name: O2 Per Protocol; Complete Time: 16:52 10/04 16:00 Order name: O2 Sat Monitoring; Complete Time: 16:52 10/04 16:00 Order name: Accucheck Blood Glucose; Complete Time: 17:16 10/04 16:00 Order name: Urine Dipstick-Ancillary (obtain specimen); Complete Time: 17:39 10/04 18:59 Order name: Accucheck Blood Glucose; Complete Time: 19:17 cp EC:22 Rate is 90 beats/min. Rhythm is regular. AK interval is normal. QRS interval is normal. cp QT interval is normal. Interpreted by me. Reviewed by me. Administered Medications: 17:08 Drug: Albuterol - atroVENT (3:1) (2.5 mg - 0.5 mg) 3 ml Route: Nebulizer; rb1 17:40 Follow up: Response: No adverse reaction; Marked relief of symptoms rb1 17:36 Not Given (Physician Discretion): Insulin Regular Human 10 units IVP once cp 17:57 Drug: NS 0.9% 250 ml Route: IV; Rate: bolus; Site: right wrist; rb1 17:57 Drug: NovoLIN R 15 units {Co-Signature: ls4 (Geneva Avilez RN).} Route: Sub-Q; Site: rb1 left lower abdomen; 19:17 Follow up: Response: No adverse reaction rr5 Point of Care Testing: Blood Glucose: 17:12 Blood Glucose: 417 mg/dL; rb1 Ranges: Critical Glucose Levels:Adult <50 mg/dl or >400 mg/dl <40 mg/dl or >180 mg/dl Disposition: 10/05 15:17 Co-signature as Attending Physician, Marty Davis MD I agree with the assessment and kdr plan of care. Disposition: 10/05/19 19:14 Discharged to Home. Impression: Diabetes mellitus due to underlying condition with hyperglycemia, Chronic obstructive pulmonary disease with (acute) exacerbation - mild. - Condition is Stable. - Discharge Instructions: Chronic Obstructive Pulmonary Disease Exacerbation, Blood Glucose Monitoring, Adult, Diabetes Mellitus and Food. - Prescriptions for Albuterol Sulfate 90 mcg/actuation - inhale 1-2 puff by INHALATION route every 4-6 hours; 1 Inhaler. - Medication Reconciliation Form, Thank You Letter, Antibiotic Education, Prescription Opioid Use form. - Follow up: Private Physician; When: 1 - 2 days; Reason: Recheck today's complaints. - Problem is new. - Symptoms have improved. Signatures: Dispatcher [employer] EDMS Marty Davis MD MD kdr Tejinder Pearson PA PA cp Irina Vázquez, RN RN rb1 Geneva Avilez RN RN ls4 Sebastian Domínguez RN RN rr5 Geneva Avilez RN ls4 Corrections: (The following items were deleted from the chart) 10/04 17:34 17:34 Normal except: RBC 5.18; HGB 15.1; EOSINOPHIL % 6.2. cp cp 19:42 19:14 10/05/2019 19:14 Discharged to Home. Impression: Diabetes mellitus due to rr5 underlying condition with hyperglycemia; Chronic obstructive pulmonary disease with (acute) exacerbation - mild. Condition is Stable. Forms are Medication Reconciliation Form, Thank You Letter, Antibiotic Education, Prescription Opioid Use. Follow up: Private Physician; When: 1 - 2 days; Reason: Recheck today's complaints. Problem is new. Symptoms have improved. cp
--- NOTE | 2019-10-06 19:15 | ER ---
Nurse's Notes [facility] Name: Sarah Parnell Age: 68 yrs Sex: Female : 1950 Arrival Date: 10/05/2019 Time: 15:49 Bed 18 Private MD: Diagnosis: Diabetes mellitus due to underlying condition with hyperglycemia;Chronic obstructive pulmonary disease with (acute) exacerbation-mild Presentation: 10/04 15:49 Chief complaint: EMS states: PT CALLED EMS BECAUSE HER BLOOD SUGAR WAS 500 +. UPON ls4 ARRIVAL TO PT HOME SHE IS VERY ANXOUS. PT STATES SHE DOES NOT TAKE HER MEDICATIONS PRESCRIBED BECAUSE SHE SEES ON THE NEWS THAT METFORMIN CAUSES CANCER AND AND ALZHIEMERS. PT ALSO STATED THAT SHE GOT SHORT OF BREATH WALKING. PT STATES SHE HAS INHALERS BUT DID NOT USE THEM. Coronavirus screen: Proceed with normal triage. Patient reports a cough. Patient reports shortness of breath or difficulty breathing. Patient denies measured and/or subjective temperature greater than 100.4F prior to today's visit. Patient denies travel on a cruise ship or to a country the [facility] currently lists as an affected area. Patient denies contact with known and/or suspected case of COVID-19. PT HAS CHRONIC COUGH AND COPD. THESE HAVE NOT CHANGED FROM HER NORMAL. Ebola Screen: No symptoms or risks identified at this time. Initial Sepsis Screen: Does the patient meet any 2 criteria? No. Patient's initial sepsis screen is negative. Does the patient have a suspected source of infection? No. Patient's initial sepsis screen is negative. Risk Assessment: Do you want to hurt yourself or someone else? Patient reports no desire to harm self or others. Care prior to arrival: Glucose check: 457. Activity prior to arrival: None. 15:49 Method Of Arrival: EMS: [facility] ls4 15:56 Onset of symptoms was October 05, 2019. rb1 15:56 Acuity: ALTON 3 rb1 Triage Assessment: 15:49 Pain: Denies pain. GI: Patient currently denies abdominal pain. ls4 15:56 General: Appears comfortable, obese, Behavior is anxious. Neuro: Level of Consciousness rb1 is awake, obeys commands, Oriented to person, place, situation. Cardiovascular: Capillary refill < 3 seconds. Respiratory: Airway is patent Respiratory effort is even, unlabored, Respiratory pattern is regular, symmetrical. Derm: Skin is pink, warm \T\ dry. Historical: - Allergies: 15:49 NKA; rb1 16:18 Vancomycin; rb1 - Home Meds: 15:49 Metformin Oral [Active]; Wellbutrin 100 mg Oral tab 1 tab 3 times per day [Active]; rb1 Synthroid 225 mcg Oral tab once daily [Active]; unknown BP med [Active]; venlafaxine Oral [Active]; - PMHx: 15:49 COPD; Depression; Diabetes - IDDM; Diabetes - NIDDM; Hypertension; Hypothyroidism; rb1 16:18 kidney failure; Skin Cancer -back, neck, and arm; CHF; Blockage - unsure if it's in her rb1 neck or heart; - PSHx: 15:49 lap band; Abdominal surgery infection; Ovarian cyst; rb1 - Immunization history:: Adult Immunizations up to date, Pneumococcal vaccine is up to date, Flu vaccine is up to date. - Social history:: Smoking status: Patient denies any tobacco usage or history of. Screenin:56 Abuse screen: Denies threats or abuse. Nutritional screening: No deficits noted. rb1 Tuberculosis screening: No symptoms or risk factors identified. Fall Risk No fall in past 12 months (0 pts). Secondary diagnosis (15 points) impaired mobility, IV access (20 points). Ambulatory Aid- Crutches/Cane/Walker (15 pts). Gait- Impaired (20 pts.). Mental Status- Oriented to own ability (0 pts). Total Bonilla Fall Scale indicates High Risk Score (45 or more points). Fall prevention measures have been instituted. Side Rails Up X 2 Placed Close to Nursing Station 1:1 Attendant Assigned Frequent Obs/Assessments Occuring As available patient and family educated on Fall Prevention Program and Strategies. Assessment: 16:58 Reassessment: Pt. ambulated to the restroom to collect a urine specimen. rb1 17:06 Reassessment: waiting for pt. to return to room. rb1 17:57 Reassessment: Patient appears in no apparent distress at this time. Patient and/or rb1 family updated on plan of care and expected duration. Pain level reassessed. Patient is alert, oriented x 3, equal unlabored respirations, skin warm/dry/pink. Pt. is standing on the side of her bed. 18:50 Reassessment: Spoke with Familia, pt. son via telephone, he asked for his mother's house rb1 keys. Notified the pt. of the request, she gave me her house keys and told me to tell her son that the leos with the pink paint on it was her front door leos. I gave the house keys to Familia in the lobby. 19:30 Reassessment: Patient appears in no apparent distress at this time. Patient is alert, rr5 oriented x 3, equal unlabored respirations, skin warm/dry/pink. discharge instruction given and explained without complaints made. Vital Signs: 15:56 BP 137 / 94; Pulse 97; Resp 20; Pulse Ox 99% on R/A; rb1 16:30 BP 130 / 74; Pulse 88; Resp 18; Temp 97.9(TE); Pulse Ox 95% on R/A; Weight 119.29 kg rb1 (R); Height 5 ft. 2 in. (157.48 cm) (R); Pain 0/10; 17:15 BP 127 / 72; Pulse 84; Resp 14; Pulse Ox 100% on R/A; rb1 18:00 BP 141 / 94; Pulse 97; Resp 17; Pulse Ox 98% ; rb1 19:15 BP 130 / 63; Pulse 80; Resp 19; Pulse Ox 99% ; rr5 16:30 Body Mass Index 48.10 (119.29 kg, 157.48 cm) [facility] ED Course: 15:49 Patient arrived in ED. rb1 15:53 Marty Davis MD is Attending Physician. kdr 15:59 Tejinder Pearson PA is PHCP. cp 16:25 XRAY Chest (1 view) In Process Unspecified. EDMS 16:32 Irina Vázquez, RN is Primary Nurse. rb1 16:53 Patient has correct armband on for positive identification. Placed in gown. Bed in low mh5 position. Call light in reach. Side rails up X 1. bus driver/monitor on. Pulse ox on. NIBP on. 16:53 EKG done, by ED staff, reviewed by Tejinder HULL. mh5 16:56 Triage completed. rb1 17:10 Inserted saline lock: 22 gauge in right wrist, using aseptic technique. rb1 18:07 No provider procedures requiring assistance completed. ls4 19:10 Arm band placed on right wrist. rr5 19:18 IV discontinued, intact, bleeding controlled, No redness/swelling at site. Pressure rr5 dressing applied. Administered Medications: 17:08 Drug: Albuterol - atroVENT (3:1) (2.5 mg - 0.5 mg) 3 ml Route: Nebulizer; rb1 17:40 Follow up: Response: No adverse reaction; Marked relief of symptoms rb1 17:36 Not Given (Physician Discretion): Insulin Regular Human 10 units IVP once cp 17:57 Drug: NS 0.9% 250 ml Route: IV; Rate: bolus; Site: right wrist; rb1 17:57 Drug: NovoLIN R 15 units {Co-Signature: ls4 (Geneva Avilez RN).} Route: Sub-Q; Site: rb1 left lower abdomen; 19:17 Follow up: Response: No adverse reaction rr5 Point of Care Testing: Blood Glucose: 17:12 Blood Glucose: 417 mg/dL; rb1 Ranges: Outcome: 19:14 Discharge ordered by MD. cp 19:30 Discharged to home ambulatory. rr5 19:30 Condition: stable 19:30 Discharge instructions given to patient, Instructed on discharge instructions, follow up and referral plans. medication usage, Demonstrated understanding of instructions, follow-up care, medications, Prescriptions given X 19:42 Patient left the ED. rr5 Signatures: Dispatcher [employer] EDMS Marty Davis MD MD kdr Page, Corey, PA PA Irina Vázquez, RN RN rb1 Eden Cunningham Geneva Carrasco RN RN ls4 Sebastian Domínguez RN RN rr5 Geneva Avilez RN ls4
== END 2019-10-05 19:42 | disposition home or self-care (01) ==
LOC: ER 15:47
DX: J44.1 Chronic obstructive pulmonary disease with (acute) exacerbation (principal); E11.65 Type 2 diabetes mellitus with hyperglycemia; I10 Essential (primary) hypertension; F32.9 Major depressive disorder, single episode, unspecified; E03.9 Hypothyroidism, unspecified; Z85.828 Personal history of other malignant neoplasm of skin; Z88.3 Allergy status to other anti-infective agents
CPT/HCPCS: 93005; 85025; 80048; 36415; 83735; 85610; 82947 ×2; 80076; 81015; 84484; 83880; 71045; 94640; 96372; 96374; 99285; J7030

== ENCOUNTER 2019-10-23 18:02 | Emergency (ER) | payer MEDICARE ==
--- OUTSIDE RECORDS SUMMARY | 2019-10-23 18:04 | XMS REPORT | Clinical Summary ---
:1950 Author Organization [facility] [employer] [facility] Address [address] [place] [address] Care Team Providers Name Role Phone Unavailable [...] Not on file Results Not on fileafter 10/22/2018 Insurance Payer Benefit Plan / Group Subscriber ID Type Phone A [facility] - MEDICARE UNITED MEDICARE HMO xxxxxxxxx MGD CARE Advance Directives For more information, please contact:[facility] [employer] [address] [place], [place] [phone] Code Status Date Activated Date Inactivated Comments Full Code 07/14/2016 9:04 PM 07/15/2016 7:06 PM This code status was determined by: Patient
--- OUTSIDE RECORDS SUMMARY | 2019-10-23 18:05 | XMS REPORT | Continuity of Care Document ---
:1950 Author Organization [facility] t Address [address] [place] [address] Care Team Providers Name Role Phone Kelsi RAE Attending Clinician Unavailable Kelsi RAE Admitting Clinician Unavailable Problems Condition Condition Condition Status Onset Resolution Last Treating Co mments Source Name Details Category Date Date Treatment Clinician Date Rib Rib Disease Active [facility] [place] Subdural Subdural Disease [facility] [place] Allergies, Adverse Reactions, Alerts This patient has no known allergies or adverse reactions. Social History Social Habit Start Date Stop Date Quantity Comments Source Sex Assigned At [facility] Smoking Status Start Date Stop Date Source Never smoker [facility] Medications Ordered Filled Start Stop Current Ordering Indication Dosage Frequency Signature Comments Components Source Medication Medication Date Date Medication? Clinician (SIG) Name Name albuterol Yes 2.5mg Take 0.[address] [facility] ([facility]) 3-11 mLs (2.5 [facility] - 2.5 mg/0.5 00:00: mg total) Me dical mL Nebu 00 by Center nebulizer nebulizati solution on every 6 (six) hours as needed. Procedures This patient has no known procedures. Results Test Description Test Time Test Comments Results Result Comments Source PLATELET AGGREGATION: FUNCTION SCREEN 2016-07-16 10:08:00 Test Item Value Reference Range Interpretation Comme nts WEAK ADP RESULT(BEAKER) (test code = 79 % 60-91 2135) PLATELET FUNCTION SCREEN INTERP 60-100% indicates normal platelet (BEAKER) (test code = 2173) function [id number] (BEAKER) (test Emanuel Rosas M.D. (electonic code = 2622) signature) PLATELET COUNT AGG (BEAKER) (test code 132 K/CU MM 150-430 L = 2656) Platelet Function Screen results may be falsely low with platelet counts<100,000/cu mm.POCT-GLUCOSE [id number] 12:30:00 Test Item Value Reference Range Interpretation Comments POC-GLUCOSE METER 102 mg/dL 70-110 TEST[facility] [place] [address] [facility] (test code = [facility] 1538) [id number] HEMOGLOBIN [id number] 10:45:00 Test Item Value Reference Range Interpretation Comments HEMOGLOBIN A1C (BEAKER) (test code = 7.1 % 4.3-6.1 H 368) POCT-GLUCOSE [id number] 07:42:00 Test Item Value Reference Range Interpretation Comments POC-GLUCOSE METER 118 mg/dL 70-110 H TESTED AT [place] [address] ([facility]) (test code = [facility] 1538) [id number] 01:11:00 Test Item Value Reference Range Interpretation Comments PHOSPHORUS (BEAKER) (test code = 2.7 mg/dL 2.3-4.7 604) [id number] 01:11:00 Test Item Value Reference Range Interpretation Comments MAGNESIUM (BEAKER) (test code = 1.7 mg/dL 1.6-2.6 627) BASIC METABOLIC [id number] 01:11:00 Test Item Value Reference Range Interpretation [...] PATIEN TS. CBC W/PLT COUNT & AUTO [id number] 00:57:00 Test Item Value Reference Range Interpretation [...] (test code = 414) MONOCYTES ABSOLUTE COUNT ([facility]) 1.12 K/ L 0.00-1.30 (test code = 415) EOSINOPHILS ABSOLUTE COUNT 0.57 K/ L 0.00-0.50 H ([facility]) (test code = 416) BASOPHILS ABSOLUTE COUNT ([facility]) 0.05 K/ L 0.00-0.20 (test code = 417) 0.00POCT-GLUCOSE [id number] 21:49:00 Test Item Value Reference Range Interpretation Comments POC-GLUCOSE METER 172 mg/dL 70-110 H TESTED AT [facility] 6720 ([facility]) (test code = [facility] 1538) [id number]
[2019-10-23] MEDS ORDERED: TRAMADOL HCL 50 MG TAB ONE (20:31)
--- NOTE | 2019-10-23 20:43 | RAD REPORT ---
EXAM DESCRIPTION: RAD - Foot Right 3 View - 10/23/2019 8:33 pm CLINICAL HISTORY: Right foot pain status post injury FINDINGS: No fracture or dislocation is seen Osteoporosis. Large calcaneal spur
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
[2019-10-23 21:35] VITALS: BP 130/80; TEMP 97.3; O2SAT 100
== END 2019-10-23 21:15 | disposition home or self-care (01) ==
LOC: ER 18:02
DX: S90.31XA Contusion of right foot, initial encounter (principal); W22.8XXA Striking against or struck by other objects, initial encounter; Y93.89 Activity, other specified; Y92.512 Supermarket, store or market as the place of occurrence of the external cause; I12.9 Hypertensive chronic kidney disease with stage 1 through stage 4 chronic kidney disease, or unspecified chronic kidney disease; N18.9 Chronic kidney disease, unspecified; Z85.828 Personal history of other malignant neoplasm of skin; Z88.3 Allergy status to other anti-infective agents
CPT/HCPCS: 99284

== ENCOUNTER 2019-11-03 19:41 | Emergency (ER) | payer MEDICARE ==
--- OUTSIDE RECORDS SUMMARY | 2019-11-03 19:43 | XMS REPORT | Clinical Summary ---
:1950 Author Organization [facility] Funding Profiles [facility] Address [address] [place] [address] Care Team Providers Name Role Phone Unavailable [...] Not on file Results Not on fileafter 11/02/2018 Insurance Payer Benefit Plan / Group Subscriber ID Type Phone A [facility] - MEDICARE UNITED MEDICARE HMO xxxxxxxxx MGD CARE Advance Directives For more information, please contact:[facility] Funding Profiles [id number] [place], [place] [phone] Code Status Date Activated Date Inactivated Comments Full Code 07/14/2016 9:04 PM 07/15/2016 7:06 PM This code status was determined by: Patient
--- OUTSIDE RECORDS SUMMARY | 2019-11-03 19:44 | XMS REPORT | Continuity of Care Document ---
:1950 Author Organization [facility] t Address [address] [place] [address] Care Team Providers Name Role Phone Kelsi RAE Attending Clinician Unavailable Kelsi RAE Admitting Clinician Unavailable Problems Condition Condition Condition Status Onset Resolution Last Treating Co mments Source Name Details Category Date Date Treatment Clinician Date Rib Rib Disease Active [facility] 00 [place] Subdural Subdural Disease [facility] 00 [place] Allergies, Adverse Reactions, Alerts This patient has no known allergies or adverse reactions. Social History Social Habit Start Date Stop Date Quantity Comments Source Sex Assigned At [facility] Smoking Status Start Date Stop Date Source Never smoker [facility] Medications Ordered Filled Start Stop Current [...] platelet (BEAKER) (test code = 2173) function [id number] (BEAKER) (test Emanuel Rosas M.D. (electonic code = 2622) signature) PLATELET COUNT AGG (BEAKER) (test code 132 K/CU MM 150-430 L = 2656) Platelet Function Screen results may be falsely low with platelet counts<100,000/cu mm.POCT-GLUCOSE [id number] 12:30:00 Test Item Value Reference Range Interpretation Comments POC-GLUCOSE METER 102 mg/dL 70-110 TESTED AT [place] [address] [facility] (test code = [facility] 1538) [address] HEMOGLOBIN [id number] 10:45:00 Test Item Value Reference Range Interpretation Comments HEMOGLOBIN A1C (BEAKER) (test code = 7.1 % 4.3-6.1 H 368) POCT-GLUCOSE [id number] 07:42:00 Test Item Value Reference Range Interpretation Comments POC-GLUCOSE METER 118 mg/dL 70-110 H TESTED AT [place] [address] ([facility]) (test code = [facility] 1538) [id number] 01:11:00 Test Item Value Reference Range Interpretation Comments PHOSPHORUS (BEAKER) (test code = 2.7 mg/dL 2.3-4.7 604) [id number] 01:11:00 Test Item Value Reference Range Interpretation Comments MAGNESIUM (BEAKER) (test code = 1.7 mg/dL 1.6-2.6 627) BASIC METABOLIC [id number] 01:11:00 Test Item Value Reference Range Interpretation [...] PATIEN TS. CBC W/PLT COUNT & AUTO [id number] 00:57:00 Test Item Value Reference Range Interpretation [...] (test code = 414) MONOCYTES ABSOLUTE COUNT ([facility]) 1.12 K/ L 0.00-1.30 (test code = 415) EOSINOPHILS ABSOLUTE COUNT 0.57 K/ L 0.00-0.50 H ([facility]) (test code = 416) BASOPHILS ABSOLUTE COUNT ([facility]) 0.05 K/ L 0.00-0.20 (test code = 417) 0.00POCT-GLUCOSE [id number] 21:49:00 Test Item Value Reference Range Interpretation Comments POC-GLUCOSE METER 172 mg/dL 70-[address] [facility] 6720 ([facility]) (test code = [facility] 1538) [id number]
[2019-11-03 21:33] LABS: Urine Blood NEGATIVE (NEG); Urine Glucose 2+ (NEG); Urine Protein NEGATIVE (NEG); Urine pH 5.5 (5.0-7.0)
--- NOTE | 2019-11-03 21:54 | ER ---
Nurse's Notes [facility] Name: Sarah Parnell Age: 68 yrs Sex: Female : 1950 Arrival Date: 11/03/2019 Time: 19:43 Bed 30 Private MD: Diagnosis: Hematuria, unspecified Presentation: 11/02 19:50 Chief complaint: Patient states: Noticed very small blood clots in her urine since last ll1 week. No pain or dysuria. + urinary frequency, no fevers. Coronavirus screen: Proceed with normal triage. Patient denies a cough. Patient denies shortness of breath or difficulty breathing. Patient denies measured and/or subjective temperature greater than 100.4F prior to today's visit. Patient denies travel on a cruise ship or to a country the [facility] currently lists as an affected area. Patient denies contact with known and/or suspected case of COVID-19. Ebola Screen: Patient denies travel to an Ebola-affected area in the 21 days before illness onset. Initial Sepsis Screen: Does the patient meet any 2 criteria? No. Patient's initial sepsis screen is negative. Risk Assessment: Do you want to hurt yourself or someone else? Patient reports no desire to harm self or others. Onset of symptoms was October 27, 2019. 19:50 Method Of Arrival: Ambulatory ll1 19:50 Acuity: ALTON 3 ll1 Historical: - Allergies: 19:53 Vancomycin; ll1 - PMHx: 19:53 CHF; COPD; Depression; Diabetes - IDDM; Diabetes - NIDDM; Blockage - unsure if it's in ll1 her neck or heart; Hypertension; Hypothyroidism; kidney failure; Skin Cancer -back, neck, and arm; CAD; - PSHx: 19:53 lap band; Abdominal surgery infection; Ovarian cyst; ll1 - Immunization history:: Flu vaccine is up to date. - Social history:: Smoking status: Patient/guardian denies using tobacco, the patient reports quitting approximately 22 years ago, Patient/guardian denies using alcohol, street drugs. Screenin:28 Abuse screen: Denies threats or abuse. Nutritional screening: No deficits noted. jb4 Tuberculosis screening: No symptoms or risk factors identified. Fall Risk Ambulatory Aid- Crutches/Cane/Walker (15 pts). Total Bonilla Fall Scale indicates No Risk (0-24 pts). Assessment: 19:58 Reassessment: attempted to give patient specimen cup for urine sample, pt refused. jb4 20:22 General: Appears in no apparent distress. comfortable, Behavior is calm, cooperative, jb4 appropriate for age. Pain: Complains of pain in low back area Pain does not radiate. Pain currently is 2 out of 10 on a pain scale. Quality of pain is described as dull, Pain began 2-3 days ago. Neuro: Level of Consciousness is awake, alert, obeys commands, Oriented to person, place, time, situation. Cardiovascular: Respiratory: Airway is patent Respiratory effort is even, unlabored, Respiratory pattern is regular, symmetrical. GI: No signs and/or symptoms were reported involving the gastrointestinal system. : Reports pain in lower back since 2 days ago. urinary frequency. EENT: No signs and/or symptoms were reported regarding the EENT system. Derm: Skin is intact, Skin is pink, warm \T\ dry. Musculoskeletal: No signs and/or symptoms reported regarding the musculoskeletal system. 21:06 Reassessment: Patient appears in no apparent distress at this time. Patient and/or jb4 family updated on plan of care and expected duration. Pain level reassessed. Patient is alert, oriented x 3, equal unlabored respirations, skin warm/dry/pink. 22:09 Reassessment: Patient appears in no apparent distress at this time. Patient and/or jb4 family updated on plan of care and expected duration. Pain level reassessed. Patient is alert, oriented x 3, equal unlabored respirations, skin warm/dry/pink. Vital Signs: 19:50 BP 123 / 98; Pulse 84; Resp 18; Temp 98.2; Pulse Ox 100% ; Pain 0/10; ll1 20:22 BP 124 / 62; Pulse 81; Resp 16; Pulse Ox 96% on R/A; Pain 2/10; jb4 21:00 BP 106 / 64; Pulse 78; Resp 16; Pulse Ox 97% on R/A; jb4 ED Course: 19:43 Patient arrived in ED. cl3 19:53 Triage completed. ll1 19:54 Marcos Gunderson MD is Attending Physician. 7 19:54 Arm band placed on Patient placed in an exam room, on a stretcher. ll1 19:58 Stephen Shaw, RN is Primary Nurse. jb4 20:28 Patient has correct armband on for positive identification. Bed in low position. Call jb4 light in reach. Side rails up X 1. Pulse ox on. NIBP on. 22:09 No provider procedures requiring assistance completed. Patient did not have IV access jb4 during this emergency room visit. Administered Medications: No medications were administered Outcome: 21:54 Discharge ordered by . presley 22:09 Discharged to home ambulatory. jb4 22:09 Condition: stable 22:09 Discharge instructions given to patient, Instructed on discharge instructions, follow up and referral plans. Demonstrated understanding of instructions, follow-up care. 22:10 Patient left the ED. jb4 Signatures: Stephen Shaw, RN RN howard4 Sinan Hicks cl3 Monique Hicks, VELIA RN ll1 Marcos Gunderson MD MD [facility]
--- NOTE | 2019-11-03 21:54 | EDPHYS ---
Physician Documentation [facility] Name: Sarah Parnell Age: 68 yrs Sex: Female : 1950 Arrival Date: 11/03/2019 Time: 19:43 Bed 30 Private MD: ED Physician Marcos Gunderson HPI: 11/02 20:07 This 68 yrs old Female presents to ER via Ambulatory with complaints of Blood mh7 In Urine. 20:07 The patient presents with urinary symptoms, hematuria. Onset: The symptoms/episode mh7 began/occurred 2 week(s) ago. Modifying factors: The symptoms are alleviated by nothing, the symptoms are aggravated by nothing. Associated signs and symptoms: Pertinent positives: urinary frequency, Pertinent negatives: constipation, cramping, diarrhea, dyspareunia, dysuria, fever, nausea, vaginal bleeding, vaginal discharge, vomiting. Severity of symptoms: At their worst the symptoms were mild, 7 day(s) ago, in the emergency department the symptoms have improved, moderately. Historical: - Allergies: 19:53 Vancomycin; ll1 - PMHx: 19:53 CHF; COPD; Depression; Diabetes - IDDM; Diabetes - NIDDM; Blockage - unsure if it's in ll1 her neck or heart; Hypertension; Hypothyroidism; kidney failure; Skin Cancer -back, neck, and arm; CAD; - PSHx: 19:53 lap band; Abdominal surgery infection; Ovarian cyst; ll1 - Immunization history:: Flu vaccine is up to date. - Social history:: Smoking status: Patient/guardian denies using tobacco, the patient reports quitting approximately 22 years ago, Patient/guardian denies using alcohol, street drugs. ROS: 20:07 Constitutional: Negative for fever, chills, and weight loss, Eyes: Negative for injury, mh7 pain, redness, and discharge, ENT: Negative for injury, pain, and discharge, Neck: Negative for injury, pain, and swelling, Cardiovascular: Negative for chest pain, palpitations, and edema, Respiratory: Negative for shortness of breath, cough, wheezing, and pleuritic chest pain, Abdomen/GI: Negative for abdominal pain, nausea, vomiting, diarrhea, and constipation, Back: Negative for injury and pain, MS/Extremity: Negative for injury and deformity, Skin: Negative for injury, rash, and discoloration, Neuro: Negative for headache, weakness, numbness, tingling, and seizure, Psych: Negative for depression, anxiety, suicide ideation, homicidal ideation, and hallucinations, Allergy/Immunology: Negative for hives, rash, and allergies, Endocrine: Negative for neck swelling, polydipsia, polyuria, polyphagia, and marked weight changes, Hematologic/Lymphatic: Negative for swollen nodes, abnormal bleeding, and unusual bruising. Exam: 20:07 Constitutional: This is a well developed, well nourished patient who is awake, alert, mh7 and in no acute distress. Head/Face: Normocephalic, atraumatic. Eyes: Pupils equal round and reactive to light, extra-ocular motions intact. Lids and lashes normal. Conjunctiva and sclera are non-icteric and not injected. Cornea within normal limits. Periorbital areas with no swelling, redness, or edema. Neck: Trachea midline, no thyromegaly or masses palpated, and no cervical lymphadenopathy. Supple, full range of motion without nuchal rigidity, or vertebral point tenderness. No Meningismus. Chest/axilla: Normal chest wall appearance and motion. Nontender with no deformity. No lesions are appreciated. Cardiovascular: Regular rate and rhythm with a normal S1 and S2. No gallops, murmurs, or rubs. Normal PMI, no JVD. No pulse deficits. Respiratory: Lungs have equal breath sounds bilaterally, clear to auscultation and percussion. No rales, rhonchi or wheezes noted. No increased work of breathing, no retractions or nasal flaring. Abdomen/GI: Soft, non-tender, with normal bowel sounds. No distension or tympany. No guarding or rebound. No evidence of tenderness throughout. Back: No spinal tenderness. No costovertebral tenderness. Full range of motion. 20:07 Skin: Warm, dry with normal turgor. Normal color with no rashes, no lesions, and no evidence of cellulitis. MS/ Extremity: Pulses equal, no cyanosis. Neurovascular intact. Full, normal range of motion. Neuro: Awake and alert, GCS 15, oriented to person, place, time, and situation. Cranial nerves II-XII grossly intact. Motor strength 5/5 in all extremities. Sensory grossly intact. Cerebellar exam normal. Normal gait. Psych: Awake, alert, with orientation to person, place and time. Behavior, mood, and affect are within normal limits. 20:07 : CVA tenderness, is absent, Pelvic Exam: The exam is refused by the patient/guardian. The risks and consequences are understood by the patient, Bladder: is normal. Vital Signs: 19:50 BP 123 / 98; Pulse 84; Resp 18; Temp 98.2; Pulse Ox 100% ; Pain 0/10; ll1 20:22 BP 124 / 62; Pulse 81; Resp 16; Pulse Ox 96% on R/A; Pain 2/10; jb4 21:00 BP 106 / 64; Pulse 78; Resp 16; Pulse Ox 97% on R/A; jb4 MDM: 20:06 Patient medically screened. [facility] 21:52 Differential diagnosis: kidney stone, urinary tract infection, Hematuria. Data [facility] reviewed: vital signs, nurses notes, old medical records, lab test result(s), finger stick glucose, urinalysis. Data interpreted: Pulse oximetry: on room air is 97 %. Interpretation: normal. Counseling: I had a detailed discussion with the patient and/or guardian regarding: the historical points, exam findings, and any diagnostic results supporting the discharge/admit diagnosis, lab results, the need for outpatient follow up, to return to the emergency department if symptoms worsen or persist or if there are any questions or concerns that arise at home. 11/02 20:28 Order name: Glucose, Ancillary Testing; Complete Time: 20:48 [facility] 11/02 21:26 Order name: Urine Culture [facility] 11/02 20:07 Order name: Urine Dipstick-Ancillary (obtain specimen); Complete Time: 21:40 [facility] 11/02 21:26 Order name: Urine Microscopic Only [facility] 11/02 21:26 Order name: Urine Dipstick--Ancillary (enter results) [facility] Administered Medications: No medications were administered Disposition: 11/03/19 21:54 Discharged to Home. Impression: Hematuria, unspecified. - Condition is Stable. - Discharge Instructions: Hematuria, Adult. - Medication Reconciliation Form, Thank You Letter, Antibiotic Education, Prescription Opioid Use form. - Follow up: Private Physician; When: 1 - 2 days; Reason: Worsening of condition, Recheck today's complaints, Re-evaluation by your physician. - Problem is an ongoing problem. - Symptoms have improved. Signatures: Dispatcher [employer] EDStephen Gupta RN RN jb4 Monique Hicks RN RN ll1 Marcos Gunderson MD MD mh7 Corrections: (The following items were deleted from the chart) 22:10 21:54 11/03/2019 21:54 Discharged to Home. Impression: Hematuria, unspecified. jb4 Condition is Stable. Forms are Medication Reconciliation Form, Thank You Letter, Antibiotic Education, Prescription Opioid Use. Follow up: Private Physician; When: 1 - 2 days; Reason: Worsening of condition, Recheck today's complaints, Re-evaluation by your physician. Problem is an ongoing problem. Symptoms have improved. mh7
[2019-11-03 22:16] VITALS: TEMP 98.2
[2019-11-03 22:18] VITALS: BP 106/64; O2SAT 97
[2019-11-03 23:13] LABS: Urine Culture Reflex Order NOT NEEDED
[2019-11-03 23:14] LABS: Urine Bacteria 20-50 /HPF (<20); Urine RBC NONE SEEN /HPF (NONE SEEN)
== END 2019-11-03 22:10 | disposition home or self-care (01) ==
LOC: ER 19:41
DX: R31.9 Hematuria, unspecified (principal); I10 Essential (primary) hypertension; Z85.828 Personal history of other malignant neoplasm of skin; Z88.3 Allergy status to other anti-infective agents
CPT/HCPCS: 81003; 81015; 82947; 87086; 87088; 99283

== ENCOUNTER 2020-04-17 | Emergency (ER) | payer SELFPAY ==
--- OUTSIDE RECORDS SUMMARY | 2020-04-17 13:43 | XMS REPORT | Clinical Summary ---
:1950 Author Organization [facility] Address [address] [place] [address] Care Team Providers Name Role Phone Unavailable [...] Types Packs/Day Years Used Date Never Smoker Alcohol Use Drinks/Week oz/Week Comments Not Asked Sex Assigned at Date Recorded Not on file Last Filed Vital Signs Not on file Plan of Treatment Not on file Results Not on fileafter 04/17/2019 Insurance Payer Benefit Plan / Subscriber ID Effective Dates Phone Addre ss Type Group [facility] [id number] 2016-Present MEDICARE MGD CARE O Advance Directives For more information, please contact: [phone] Code Status Date Activated Date Inactivated Comments Full Code 07/14/2016 9:04 PM 07/15/2016 7:06 PM This code status was determined by: Patient
--- OUTSIDE RECORDS SUMMARY | 2020-04-17 13:43 | XMS REPORT | Continuity of Care Document ---
:1950 Author Organization [facility] t Address [address] [place] [address] [address] [place] [address] Care Team Providers Name Role Phone Kelsi RAE Attending Clinician Unavailable Kelsi RAE Admitting Clinician Unavailable Problems Condition Condition Condition Status Onset Resolution Last Treating Co mments Source Name Details Category Date Date Treatment Clinician Date Rib Rib Disease Active [facility] [place] Subdural Subdural Disease [facility] [place] Allergies, Adverse Reactions, Alerts This patient has no known allergies or adverse reactions. Social History Social Habit Start Date Stop Date Quantity Comments Source Sex Assigned At [facility] Smoking Status Start Date Stop Date Source Never smoker [facility] Medications Ordered Filled Start Stop Current Ordering Indication Dosage Frequency Signature Comments Components Source Medication Medication Date Date Medication? Clinician (SIG) Name Name albuterol Yes 2.5mg Take 0.5 [facility] ([facility]) 3-11 mLs (2.5 [facility] - [...] platelet (BEAKER) (test code = 2173) function [id number] (BEAKER) (test Emanuel Rosas M.D. (electonic code = 2622) signature) PLATELET COUNT AGG (BEAKER) (test code 132 K/CU MM 150-430 L = 2656) Platelet Function Screen results may be falsely low with platelet counts<100,000/cu mm.POCT-GLUCOSE [id number] 12:30:00 Test Item Value Reference Range Interpretation Comments POC-GLUCOSE METER 102 mg/dL 70-110 TESTED AT [facility] 67 (BEAKER) (test code = GERRY [place] 1538) [id number] HEMOGLOBIN [id number] 10:45:00 Test Item Value Reference Range Interpretation Comments HEMOGLOBIN A1C (BEAKER) (test code = 7.1 % 4.3-6.1 H 368) POCT-GLUCOSE [id number] 07:42:00 Test Item Value Reference Range Interpretation Comments POC-GLUCOSE METER 118 mg/dL 70-110 H TESTED AT [facility] 67 (BEAKER) (test code = [place] 1538) [id number] 01:11:00 Test Item Value Reference Range Interpretation Comments PHOSPHORUS (BEAKER) (test code = 2.7 mg/dL 2.3-4.7 604) [id number] 01:11:00 Test Item Value Reference Range Interpretation Comments MAGNESIUM (BEAKER) (test code = 1.7 mg/dL 1.6-2.6 627) BASIC METABOLIC [id number] 01:11:00 Test Item Value Reference Range Interpretation [...] PATIEN TS. CBC W/PLT COUNT & AUTO [id number] 00:57:00 Test Item Value Reference Range Interpretation [...] NEUTROPHILS ABSOLUTE COUNT 5.96 K/ L 1.80-8.00 ([facility]) (test code = 670) LYMPHOCYTES ABSOLUTE COUNT 2.89 K/ L 1.48-4.50 ([facility]) (test code = 414) MONOCYTES ABSOLUTE COUNT ([facility]) 1.12 K/ L 0.00-1.30 (test code = 415) EOSINOPHILS ABSOLUTE COUNT 0.57 K/ L 0.00-0.50 H ([facility]NER) (test code = 416) BASOPHILS ABSOLUTE COUNT ([facility]) 0.05 K/ L 0.00-0.20 (test code = 417) 0.00POCT-GLUCOSE [id number] 21:49:00 Test Item Value Reference Range Interpretation Comments POC-GLUCOSE METER 172 mg/dL 70-110 H TESTED AT [facility] 6786 ([facility]ANNER) (test code = [place] 1538) [id number]
--- NOTE | 2020-04-17 16:44 | ER ---
Nurse's Notes [facility] Name: Sarah Parnell Age: 69 yrs Sex: Female : 1950 Arrival Date: 04/17/2020 Time: 13:51 Bed Waiting Private MD: Diagnosis: Presentation: 04/17 14:47 Chief complaint: EMS states: Exposed to COVID on , reports loss of taste \T\ jl7 sore throat with cough, tested on [facility] Sunday, no results yet, denies fever, reports O2 was 89% at home. Coronavirus screen: Client denies travel out of the [place] in the last 14 days. cough unrelated to allergies, sore throat, loss of taste or smell, Client presents with at least one sign or symptom that may indicate coronavirus-19. Standard/surgical mask placed on the client. Provider contacted for isolation considerations. The client indicates previous COVID test results are pending. Date of collection: April 16, 2020. Ebola Screen: No symptoms or risks identified at this time. Initial Sepsis Screen: Does the patient meet any 2 criteria? No. Patient's initial sepsis screen is negative. Does the patient have a suspected source of infection? No. Patient's initial sepsis screen is negative. Risk Assessment: Do you want to hurt yourself or someone else? Patient reports no desire to harm self or others. Onset of symptoms was April 16, 2020. Care prior to arrival: None. 14:47 Method Of Arrival: EMS: [facility] jl7 14:47 Acuity: ALTON 3 jl7 Triage Assessment: 14:52 General: Appears in no apparent distress. uncomfortable, Behavior is calm, cooperative, jl7 appropriate for age. Pain: Denies pain. Historical: - Allergies: 14:52 NKA; jl7 14:52 Vancomycin; jl7 - PMHx: 14:52 Blockage - unsure if it's in her neck or heart; CAD; CHF; COPD; Depression; Diabetes - jl7 IDDM; Diabetes - NIDDM; Hypertension; Hypothyroidism; kidney failure; Skin Cancer -back, neck, and arm; - PSHx: 14:52 lap band; Abdominal surgery infection; Ovarian cyst; jl7 - Immunization history:: Adult Immunizations unknown. - Social history:: Smoking status: Patient denies any tobacco usage or history of. Vital Signs: 14:47 BP 138 / 82; Pulse 92; Resp 17; Temp 97.1(O); Pulse Ox 96% on R/A; Weight 108.86 kg jl7 (R); Height 5 ft. 2 in. (157.48 cm) (R); Pain 0/10; 14:47 Body Mass Index 43.90 (108.86 kg, 157.48 cm) jl7 ED Course: 13:51 Patient arrived in ED. jl7 14:51 Triage completed. jl7 14:52 Arm band placed on right wrist. jl7 16:40 Tejinder Pearson PA is PHCP. cp 16:40 Tejinder Santos MD is Attending Physician. cp 16:43 Tejinder Santos MD is Attending Physician. aa5 Administered Medications: No medications were administered Outcome: 16:43 Patient left the ED. aa5 Signatures: Alina Ibanez RN RN aa5 Tejinder Pearson PA PA cp Leal, Jahala RN RN jl7
== END 2020-04-17 16:43 | disposition left against medical advice (07) ==
DX: Z53.21 Procedure and treatment not carried out due to patient leaving prior to being seen by health care provider (principal)
CPT/HCPCS: 99282

== ENCOUNTER 2020-10-10 13:07 | Emergency (ER) | payer OTHER ==
--- OUTSIDE RECORDS SUMMARY | 2020-10-10 13:10 | XMS REPORT | Continuity of Care Document ---
:1950 Author Organization [facility] t Address [address] [place] [address] [address] [place] [address] Care Team Providers Name Role Phone Kelsi RAE Attending Clinician Unavailable Kelsi RAE Admitting Clinician Unavailable Problems Condition Condition Condition Status Onset Resolution Last Treating Co mments Source Name Details Category Date Date Treatment Clinician Date Rib Rib Disease Active [facility] [place] Subdural Subdural Disease [facility] [place] Allergies, Adverse Reactions, Alerts This patient has no known allergies or adverse reactions. Social History Social Habit Start Date Stop Date Quantity Comments Source Sex Assigned At [facility]07[facility]15 [facility] Smoking Status Start Date Stop Date Source Never smoker [facility] Medications Ordered Filled Start Stop Current Ordering Indication Dosage Frequency Signature Comments Components Source Medication Medication Date Date Medication? Clinician (SIG) Name Name albuterol Yes 2.5mg Take 0.5 [facility] ([facility]) -11 mLs (2.5 [facility] - 2.5 mg/0.5 [...] RESULT(BEAKER) (test code = 79 % 60-91 2955) PLATELET FUNCTION SCREEN INTERP 60-100% indicates normal platelet (BEAKER) (test code = 2173) function [id number] (BEAKER) (test Emanuel Rosas M.D. (electonic code = 2622) signature) PLATELET COUNT AGG (BEAKER) (test code 132 K/CU MM 150-430 L = 2656) Platelet Function Screen results may be falsely low with platelet counts<100,000/cu mm.POCT-GLUCOSE [id number] 12:30:00 Test Item Value Reference Range Interpretation Comments POC-GLUCOSE METER 102 mg/dL 70-110 TESTED AT [facility] 67 (BEAKER) (test code = [place] 1538) [id number] HEMOGLOBIN [id number] 10:45:00 Test Item Value Reference Range Interpretation Comments HEMOGLOBIN A1C (BEAKER) (test code = 7.1 % 4.3-6.1 H 368) POCT-GLUCOSE [id number] 07:42:00 Test Item Value Reference Range Interpretation Comments POC-GLUCOSE METER 118 mg/dL 70-110 H TESTED AT [place] [address] [facility] (test code = [place] 1538) [address] [id number] 01:11:00 Test Item Value Reference Range Interpretation Comments PHOSPHORUS (BEAKER) (test code = 2.7 mg/dL 2.3-4.7 604) [id number] 01:11:00 Test Item Value Reference Range Interpretation Comments MAGNESIUM (BEAKER) (test code = 1.7 mg/dL 1.6-2.6 627) BASIC METABOLIC [id number] 01:11:00 Test Item Value Reference Range Interpretation [...] PATIEN TS. CBC W/PLT COUNT & AUTO [id number] 00:57:00 Test Item Value Reference Range Interpretation [...] NEUTROPHILS ABSOLUTE COUNT 5.96 K/ L 1.80-8.00 ([facility]) (test code = 670) LYMPHOCYTES ABSOLUTE COUNT 2.89 K/ L 1.48-4.50 ([facility]) (test code = 414) MONOCYTES ABSOLUTE COUNT ([facility]) 1.12 K/ L 0.00-1.30 (test code = 415) EOSINOPHILS ABSOLUTE COUNT 0.57 K/ L 0.00-0.50 H ([facility]) (test code = 416) BASOPHILS ABSOLUTE COUNT ([facility]) 0.05 K/ L 0.00-0.20 (test code = 417) 0.00POCT-GLUCOSE [id number] 21:49:00 Test Item Value Reference Range Interpretation Comments POC-GLUCOSE METER 172 mg/dL 70-110 H TESTED AT [facility] 6720 ([facility]) (test code = GERRY [place] 1538) [id number]
[2020-10-10 14:54] LABS: Absolute Lymphocytes (CBC) 2.5 K/uL (0.7-4.9); Basophils % 1.4 % (0-1.3); Hematocrit 40.5 % (36.0-45.0); Lymphocytes % 24.4 % (15.3-44.8); MPV 8.8 fL (7.6-11.3)
[2020-10-10] MEDS ORDERED: NA CHLORIDE 0.9% 1,000 ML ONE (14:58)
[2020-10-10 15:01] LABS: Protime INR 1.1
[2020-10-10 15:14] LABS: Albumin 3.1 g/dL (3.4-5.0); Bilirubin Direct 0.1 mg/dL (0-0.2); Bilirubin Total 0.3 mg/dL (0.2-1.0); Potassium 3.5 mmol/L (3.5-5.1); Protein, Total 7.2 g/dL (6.4-8.2); Troponin I 0.04 ng/mL (0.0-0.045)
--- NOTE | 2020-10-10 16:19 | RAD REPORT ---
EXAM DESCRIPTION: Dick Single View10/10/2020 4:08 pm CLINICAL HISTORY: Shortness of breath COMPARISON: 2019 FINDINGS: The lungs appear clear of acute infiltrate. The heart is normal size IMPRESSION: No acute abnormalities displayed
--- NOTE | 2020-10-10 16:23 | ER ---
Nurse's Notes [facility] Name: Sarah Parnell Age: 69 yrs Sex: Female : 1950 Arrival Date: 10/10/2020 Time: 13:17 Bed 5 Private MD: Diagnosis: Hyperglycemia, unspecified Presentation: 10/10 13:20 Acuity: ALTON 3 bp 13:40 Chief complaint: Patient states: CONFUSED, HYPERGLYCEMIC. Coronavirus screen: At this bp time, the client does not indicate any symptoms associated with coronavirus-19. Ebola Screen: No symptoms or risks identified at this time. Initial Sepsis Screen: Does the patient meet any 2 criteria? No. Patient's initial sepsis screen is negative. Does the patient have a suspected source of infection? No. Patient's initial sepsis screen is negative. Risk Assessment: Do you want to hurt yourself or someone else? Patient reports no desire to harm self or others. Onset of symptoms is unknown. Care prior to arrival: Medication(s) given: Normal saline infusion, 500 mL, IV initiated. 20 GA, in the left antecubital area, Glucose check: 399. 13:40 Method Of Arrival: EMS: [facility] bp Triage Assessment: 13:20 General: Appears in no apparent distress. comfortable, obese, Behavior is cooperative, bp appropriate for age, anxious. Pain: Denies pain. EENT: No deficits noted. Neuro: Level of Consciousness is awake, alert, obeys commands, Oriented to person, place, time, situation, Appropriate for age Gait is steady, Speech is normal. Cardiovascular: No deficits noted. Respiratory: No deficits noted. GI: No signs and/or symptoms were reported involving the gastrointestinal system. : No signs and/or symptoms were reported regarding the genitourinary system. Derm: No deficits noted. Musculoskeletal: No deficits noted. Historical: - Allergies: 13:40 Vancomycin; bp - Home Meds: 13:40 Metformin Oral [Active]; Synthroid 225 mcg Oral tab once daily [Active]; Wellbutrin 100 bp mg Oral tab 1 tab 3 times per day [Active]; venlafaxine Oral [Active]; - PMHx: 13:40 Blockage - unsure if it's in her neck or heart; CAD; CHF; COPD; Depression; Diabetes - bp IDDM; Hypertension; Hypothyroidism; kidney failure; Skin Cancer -back, neck, and arm; - Immunization history:: Adult Immunizations up to date. - Social history:: Smoking status: Patient denies any tobacco usage or history of. Screenin:20 Abuse screen: Denies threats or abuse. Denies injuries from another. Nutritional bp screening: No deficits noted. Tuberculosis screening: No symptoms or risk factors identified. Fall Risk None identified. Assessment: 13:20 General: SEE TRIAGE NOTE. bp 15:30 Reassessment: Patient appears in no apparent distress at this time. Patient and/or bp family updated on plan of care and expected duration. Pain level reassessed. Patient is alert, oriented x 3, equal unlabored respirations, skin warm/dry/pink. CXR PENDING Patient states feeling better. Patient states symptoms have improved. Vital Signs: 13:20 BP 117 / 76; bp 13:20 BP 133 / 98; Pulse 92; Resp 19; Pulse Ox 94% ; bp 15:30 BP 135 / 89; Pulse 87; Resp 15; Pulse Ox 96% ; bp ED Course: 13:17 Patient arrived in ED. hb 13:19 Adan Salas PA is PHCP. jmm 13:20 Tejinder Santos MD is Attending Physician. jmm 13:20 Arm band placed on. bp 13:20 Patient has correct armband on for positive identification. Bed in low position. Call bp light in reach. Side rails up X2. 13:20 Maintain EMS IV. Dressing intact. Good blood return noted. Site clean \T\ dry. Gauge \T\ bp site: 20 GAUGE LEFT FA. 13:48 Triage completed. bp 14:15 Darshan Frey, VELIA is Primary Nurse. bp 16:08 XRAY Chest (1 view) In Process Unspecified. EDMS 17:13 No provider procedures requiring assistance completed. Patient did not have IV access kg during this emergency room visit. Administered Medications: 13:40 Drug: NS 0.9% 1000 ml Route: IV; Rate: 1 bolus; Site: left forearm; bp Outcome: 16:22 Discharge ordered by . jmm 17:13 Discharged to home ambulatory. kg 17:13 Condition: stable 17:13 Discharge instructions given to patient, Instructed on discharge instructions, follow up and referral plans. Demonstrated understanding of instructions, follow-up care, medications. 17:14 Patient left the ED. hb Signatures: Dispatcher [employer] EDMS Adan Salas PA PA jmm Baxter, Heather, RN RN hb Darshan Frey RN RN bp Chacha Lebron RN RN kg Corrections: (The following items were deleted from the chart) 13:55 13:40 BP 117 / 76; bp bp 13:55 13:40 Acuity: ALTON 3 bp bp 14:15 13:45 BP 133 / 98; Pulse 92bpm; Resp 19bpm; Pulse Ox 94%; bp bp 15:38 15:35 Reassessment: ADMIT INITIATED. bp bp 15:38 15:35 Respiratory: Breath sounds are coarse Breath sounds with crackles Breath sounds bp with rhonchi bp
--- NOTE | 2020-10-10 16:23 | EDPHYS ---
Physician Documentation [facility] Name: Sarah Parnell Age: 69 yrs Sex: Female : 1950 Arrival Date: 10/10/2020 Time: 13:17 Bed 5 Private MD: ED Physician Tejinder Santos HPI: 10/10 13:57 This 69 yrs old Female presents to ER via EMS with complaints of sob. jmm 13:57 The patient has shortness of breath at rest. Onset: The symptoms/episode began/occurred jmm just prior to arrival, today. Duration: The symptoms are continuous. The patient's shortness of breath is aggravated by nothing, is alleviated by nothing. Associated signs and symptoms: Pertinent positives: Pertinent negatives: chest pain, non-productive cough, loss of consciousness. This is a 69 year old female with a history of DM that presents to the ED with complaints of sob which occurred earlier today. Patient states her BGL was over 435. Patient complains of abdominal bloating and nausea. Patient states feeling impending doom with SOB. States her symptoms have improved. . Historical: - Allergies: 13:40 Vancomycin; bp - Home Meds: 13:40 Metformin Oral [Active]; Synthroid 225 mcg Oral tab once daily [Active]; Wellbutrin 100 bp mg Oral tab 1 tab 3 times per day [Active]; venlafaxine Oral [Active]; - PMHx: 13:40 Blockage - unsure if it's in her neck or heart; CAD; CHF; COPD; Depression; Diabetes - bp IDDM; Hypertension; Hypothyroidism; kidney failure; Skin Cancer -back, neck, and arm; - Immunization history:: Adult Immunizations up to date. - Social history:: Smoking status: Patient denies any tobacco usage or history of. ROS: 13:57 Constitutional: Negative for fever, chills, and weight loss, Cardiovascular: Negative jmm for chest pain, palpitations, and edema. 13:57 Respiratory: Positive for shortness of breath. 13:57 Abdomen/GI: Positive for bloating. 13:57 All other systems are negative. Exam: 13:57 Constitutional: This is a well developed, well nourished patient who is awake, alert, jmm and in no acute distress. Head/Face: atraumatic. Eyes: EOMI, no conjunctival erythema appreciated ENT: Moist Mucus Membranes Neck: Trachea midline, Supple Chest/axilla: Normal chest wall appearance and motion. Cardiovascular: Regular rate and rhythm. No edema appreciated Respiratory: Normal respirations, no respiratory distress appreciated Abdomen/GI: Non distended, soft Back: Normal ROM Skin: General appearance color normal MS/ Extremity: Moves all extremities, no obvious deformities appreciated, no edema noted to the lower extremities Neuro: Awake and alert, normal gait Psych: Behavior is normal, Mood is normal, Patient is cooperative and pleasant Vital Signs: 13:20 BP 117 / 76; bp 13:20 BP 133 / 98; Pulse 92; Resp 19; Pulse Ox 94% ; bp 15:30 BP 135 / 89; Pulse 87; Resp 15; Pulse Ox 96% ; bp MDM: 13:31 Patient medically screened. colleen 16:20 Data reviewed: vital signs, nurses notes. Counseling: I had a detailed discussion with gaviota the patient and/or guardian regarding: the historical points, exam findings, and any diagnostic results supporting the discharge/admit diagnosis, lab results, radiology results, the need for outpatient follow up, to return to the emergency department if symptoms worsen or persist or if there are any questions or concerns that arise at home. ED course: Patient states feeling much better. Patient advised to follow up with pcp and otherwise given strict return precautions. patient understood and agrees with the plan of care. . 10/10 14:48 Order name: Basic Metabolic Panel; Complete Time: 15:20 [facility] 10/10 14:48 Order name: Liver (Hepatic) Function; Complete Time: 15:20 [facility] 10/10 14:48 Order name: Troponin I; Complete Time: 15:20 [facility] 10/10 14:48 Order name: NT PRO-BNP; Complete Time: 15:21 [facility] 10/10 14:48 Order name: Magnesium; Complete Time: 15:21 [facility] 10/10 14:48 Order name: CBC with Automated Diff; Complete Time: 15:00 [facility] 10/10 14:48 Order name: Protime (+INR); Complete Time: 15:04 [facility] 10/10 13:40 Order name: XRAY Chest (1 view); Complete Time: 16:19 [facility] 10/10 13:40 Order name: EKG; Complete Time: 14:51 [facility] 10/10 13:40 Order name: Cardiac monitoring; Complete Time: 14:16 [facility] 10/10 13:40 Order name: EKG - Nurse/Tech; Complete Time: 14:16 [facility] 10/10 13:40 Order name: IV Saline Lock; Complete Time: 13:57 [facility] 10/10 13:40 Order name: Labs collected and sent; Complete Time: 13:56 [facility] 10/10 13:40 Order name: O2 Per Protocol; Complete Time: 13:56 [facility] 10/10 13:40 Order name: O2 Sat Monitoring; Complete Time: 13:56 [facility] 10/10 16:11 Order name: Urine Dipstick-Ancillary (obtain specimen) [facility] Administered Medications: 13:40 Drug: NS 0.9% 1000 ml Route: IV; Rate: 1 bolus; Site: left forearm; bp Disposition: 10/10/20 16:22 Discharged to Home. Impression: Hyperglycemia, unspecified. - Condition is Stable. - Discharge Instructions: Hyperglycemia. - Medication Reconciliation Form, Thank You Letter, Antibiotic Education, Prescription Opioid Use form. - Follow up: Private Physician; When: 2 - 3 days; Reason: Recheck today's complaints, Continuance of care, Re-evaluation by your physician. Addendum: 10/12/2020 08:00 Co-signature as Attending Physician, Tejinder Santos MD I agree with the assessment and c amato plan of care. Signatures: Dispatcher [employer] Tejinder Ramires MD MD cha Mickail, Joel, PA PA Leidy Sawant, VELIA RN Darshan Groves RN RN bp Corrections: (The following items were deleted from the chart) 10/10 14:54 14:51 BASIC METABOLIC PANEL+C.LAB.BRZ ordered. EDMS EDMS 14:54 14:51 CBC+H.LAB.BRZ ordered. EDMS EDMS 14:54 14:51 HEPATIC FUNCTION+C.LAB.BRZ ordered. EDMS EDMS 14:54 14:51 MAGNESIUM+C.LAB.BRZ ordered. EDMS EDMS 14:54 14:51 PROBNP+C.LAB.BRZ ordered. EDMS EDMS 14:54 14:51 PROTIME (+INR)+COAG.LAB.BRZ ordered. EDMS EDMS 14:54 14:51 TROPONIN (EMERG DEPT USE ONLY)+C.LAB.BRZ ordered. EDMS EDMS 17:14 16:22 10/10/2020 16:22 Discharged to Home. Impression: Hyperglycemia, unspecified. hb Condition is Stable. Forms are Medication Reconciliation Form, Thank You Letter, Antibiotic Education, Prescription Opioid Use. Follow up: Private Physician; When: 2 - 3 days; Reason: Recheck today's complaints, Continuance of care, Re-evaluation by your physician. gaviota
[2020-10-10 17:23] VITALS: BP 135/89; O2SAT 96
== END 2020-10-10 17:14 | disposition home or self-care (01) ==
LOC: ER 13:07
DX: E11.65 Type 2 diabetes mellitus with hyperglycemia (principal); I10 Essential (primary) hypertension; F32.9 Major depressive disorder, single episode, unspecified; I50.9 Heart failure, unspecified; Z88.3 Allergy status to other anti-infective agents
CPT/HCPCS: 93005; 85025; 80048; 36415; 83735; 85610; 80076; 84484; 83880; 71045; 99283; J7030

== ENCOUNTER 2021-03-09 19:49 | Emergency (ER) | payer OTHER ==
--- NOTE | 2021-03-09 21:23 | RAD REPORT ---
EXAM DESCRIPTION: RAD - Chest Single View - 03/09/2021 9:01 pm CLINICAL HISTORY: DYSPNEA COMPARISON: Chest Single View dated 10/10/2020; Chest Single View dated 10/05/2019; Chest Single View d ated 06/18/2019; Chest Pa And Lat (2 Views) dated 01/15/2019 FINDINGS: Lines: None. Lungs: No evidence of edema or pneumonia. Pleural: No significant pleural effusions or pneumothorax. Cardiac: The heart size is within normal limits. Bones: No acute fractures. Other: IMPRESSION: No acute cardiopulmonary disease.
[2021-03-09 21:24] LABS: Protime INR 1.15
[2021-03-09 21:32] LABS: Absolute Lymphocytes (CBC) 2.2 K/uL (0.7-4.9); Basophils % 0.9 % (0-1.3); Hematocrit 44.4 % (36.0-45.0); MPV 8.8 fL (7.6-11.3); RBC Red Blood Cell Count 5.11 M/uL (3.86-4.86)
[2021-03-09 21:35] LABS: ALT/SGPT 47 U/L (12-78); AST/SGOT 33 U/L (15-37); Albumin 3.8 g/dL (3.4-5.0); Alkaline Phosphatase 60 U/L (45-117); BUN Blood Urea Nitrogen 28 mg/dL (7-18); Bicarbonate 28 mmol/L (21-32); Bilirubin Direct 0.1 mg/dL (0-0.2); Bilirubin Total 0.4 mg/dL (0.2-1.0); Glucose Level 210 mg/dL (74-106); Magnesium 2.2 mg/dL (1.8-2.4); NT PRO-BNP 22 pg/mL (<125); Potassium 3.5 mmol/L (3.5-5.1); Protein, Total 8.7 g/dL (6.4-8.2); Sodium Level 138 mmol/L (136-145); Troponin (Emerg Dept Use Only) < 0.02 ng/mL (0.0-0.045)
[2021-03-09 21:42] LABS: Urine Blood Negative (Negative); Urine Glucose 2+ (Negative); Urine Protein Negative (Negative); Urine Specific Gravity 1.025 (1.005-1.030); Urine pH 5.5 (5.0-7.0)
[2021-03-09 22:48] LABS: Blood Morphology Comment NOT SEEN (NOT SEEN); Platelet Estimate ADEQ
[2021-03-09] MEDS ORDERED: NA CHLORIDE 0.9% 1,000 ML ONE (22:52)
--- NOTE | 2021-03-10 00:13 | ER ---
Nurse's Notes [facility] Name: Sarah Parnell Age: 70 yrs Sex: Female : 1950 Arrival Date: 03/09/2021 Time: 19:51 Bed 13 Private MD: Diagnosis: Elevated white blood cell count;Acute upper respiratory infection, unspecified Presentation: 03/09 20:09 Chief complaint: Patient states: pt has run out of diabetic supplies and believes her mr2 bg may be high. States she feels lethargic and nauseous. Last bg reading was 250 this am. Coronavirus screen: Vaccine status: Patient reports receiving the 2nd dose of the covid vaccine. Date February 28, 2021. Ebola Screen: Patient negative for fever greater than or equal to 101.5 degrees Fahrenheit, and additional compatible Ebola Virus Disease symptoms Patient denies exposure to infectious person. Patient denies travel to an Ebola-affected area in the 21 days before illness onset. Risk Assessment: Do you want to hurt yourself or someone else? Patient reports no desire to harm self or others. Onset of symptoms was March 09, 2021. 20:09 Method Of Arrival: Ambulatory mr2 20:09 Acuity: ALTON 3 mr2 20:28 Initial Sepsis Screen: Does the patient meet any 2 criteria? No. Patient's initial mr2 sepsis screen is negative. Does the patient have a suspected source of infection? No. Patient's initial sepsis screen is negative. Triage Assessment: 20:30 General: Appears in no apparent distress. obese, Behavior is calm, cooperative, some dc2 confusion throughout conversation but is AOx4. 20:30 Pain: Denies pain. Neuro: Level of Consciousness is awake, alert, obeys commands, dc2 confused, sounds confused but able to answer all questions appropriately. Respiratory: No deficits noted. Airway is patent Breath sounds are clear bilaterally. Denies cough, shortness of breath. GI: Abdomen is round obese, Bowel sounds present X 4 quads. Reports diarrhea, Patient currently denies nausea, vomiting. : No signs and/or symptoms were reported regarding the genitourinary system. Derm: No deficits noted. No signs and/or symptoms reported regarding the dermatologic system. Musculoskeletal: Pt appears weak by unable to move around in bed without assistance. Reports Able to walk around with walker. Historical: - Immunization history:: Adult Immunizations up to date. - Social history:: Smoking status: Patient denies any tobacco usage or history of. Screenin:30 Abuse screen: Denies threats or abuse. Denies injuries from another. Nutritional dc2 screening: No deficits noted. Tuberculosis screening: No symptoms or risk factors identified. Never had TB. Fall Risk None identified. Fall in past 12 months (25 points). Secondary diagnosis (15 points) No IV (0 pts). Ambulatory Aid- Crutches/Cane/Walker (15 pts). Gait- Weak (10 pts.). Mental Status- Overestimates/Forgets Limitations (15 pts.). Assessment: 20:30 General: Appears in no apparent distress. comfortable, obese, well groomed, Behavior is dc2 calm, cooperative. Pain: Complains of pain in generalized abdomen - states is having a little bit of pain since having diarrhea. Neuro: No deficits noted. Level of Consciousness is Oriented to person, place, time, situation. Cardiovascular: No deficits noted. Denies chest pain, shortness of breath, Heart tones present. Respiratory: No deficits noted. Airway is patent Breath sounds are clear bilaterally. Denies shortness of breath. GI: Abdomen is obese, Reports diarrhea. : No signs and/or symptoms were reported regarding the genitourinary system. Derm: No deficits noted. No signs and/or symptoms reported regarding the dermatologic system. Musculoskeletal: No deficits noted. No signs and/or symptoms reported regarding the musculoskeletal system. Pt uses rolling walker to ambulate. 23:40 Reassessment: Assist pt to bsc. States feels ok, is ready to go home. In nad. Friend at dc2 bedside. Vital Signs: 20:09 BP 138 / 74; Pulse 114; Resp 20; Temp 99.4; Pulse Ox 94% on R/A; mr2 20:32 Weight 108.86 kg; Height 5 ft. 2 in. (157.48 cm); mr2 21:00 BP 118 / 50; Pulse 108; Resp 19; Pulse Ox 100% on R/A; Pain 0/10; dc2 22:00 BP 117 / 79; Pulse 106; Resp 17; Pulse Ox 99% ; Pain 0/10; dc2 1104 00:00 BP 126 / 73; Pulse 101; Resp 18; Temp 97.4(O); Pulse Ox 97% on R/A; Pain 0/10; dc2 03/09 20:32 Body Mass Index 43.90 (108.86 kg, 157.48 cm) mr2 ED Course: 03/09 19:51 Patient arrived in ED. ja2 20:01 [facility] Muniz [facility]C [facility] kb 20:01 Antonio Tamez MD is Attending Physician. kb 20:13 Triage completed. mr2 20:30 Arm band placed on Patient placed in an exam room, on a stretcher. mr2 20:30 Patient has correct armband on for positive identification. Fall risk band placed. dc2 Placed in gown. Bed in low position. Call light in reach. Side rails up X 1. Pulse ox on. NIBP on. Door closed. Lights dimmed. 20:30 No provider procedures requiring assistance completed. dc2 20:32 Shantel Jerez, RN is Primary Nurse. dc2 20:40 Inserted saline lock: 20 gauge in right wrist, using aseptic technique. dc2 20:58 CBC with Automated Diff Sent. dc2 20:58 Basic Metabolic Panel Sent. dc2 20:58 Basic Metabolic Panel Sent. dc2 20:58 CBC with Diff Sent. dc2 21:00 X-ray(s) taken. dc2 21:01 XRAY Chest (1 view) In Process Unspecified. EDMS 21:30 No apparent distress. Resting quietly. Awaiting lab results. dc2 21:45 Notified Nurse Practitioner and/or Physician Sql Application Developer of a critical lab result(s), bb WBCs of 21.9 Zhane Muniz CHANNEL SPECIALIST notified. 21:58 COVID-19 SARS RT PCR (Document "Date of Onset" if Symptomatic) Sent. dc2 22:16 CT Abd/Pelvis - IV Contrast Only Sent. dc2 22:[address] via stretcher. dc2 22:32 CT Abd/Pelvis - IV Contrast Only In Process Unspecified. EDMS 22:50 No apparent distress. Resting quietly. Awaiting radiology results. dc2 22:50 Patient has correct armband on for positive identification. Allergy band placed. Placed dc2 in gown. Bed in low position. Call light in reach. Side rails up X 1. case monitor on. Pulse ox on. NIBP on. Door closed. Lights dimmed. 23:15 No apparent distress. Resting quietly. dc2 03/10 00:30 IV discontinued, intact, bleeding controlled. dc2 Administered Medications: 03/09 22:51 Drug: NS 0.9% 1000 ml Route: IV; Rate: 1000 ml; Infused Over: 2 hrs; Site: left dc2 antecubital; Delivery: Primary tubing; 03/10 00:20 Follow up: IV Status: Completed infusion; IV Intake: 1000ml dc2 00:18 Drug: Rocephin (cefTRIAXone) 1 grams Route: IV; Rate: calculated rate; Infused Over: 2 dc2 mins; Site: right wrist; 00:30 Follow up: IV Status: Completed infusion; IV Intake: 10ml dc2 00:34 Follow up: Response: No adverse reaction dc2 Intake: 00:20 IV: 1000ml; Total: 1000ml. dc2 00:30 IV: 10ml; Total: 1010ml. dc2 Outcome: 00:13 Discharge ordered by . kb 00:30 Discharged to home ambulatory. dc2 00:30 Condition: stable 00:30 Discharge instructions given to patient, Instructed on discharge instructions, follow up and referral plans. Demonstrated understanding of instructions, follow-up care, medications, Prescriptions given X 1. 00:36 Patient left the ED. dc2 Signatures: Dispatcher [employer] EDMS Zhane Muniz, PALAEONTOLOGIST-C PALAEONTOLOGIST-Edelmira Bravo RN RN bb Alexander, Jessica ja2 Reynard, Mike, RN RN mr2 Shantel Jerez RN RN dc2 Corrections: (The following items were deleted from the chart) 03/09 20:14 20:14 PMHx: Hypertension; mr2 mr2 20:14 20:14 PMHx: Hypothyroidism; mr2 mr2 20:14 20:14 PMHx: Depression; mr2 mr2 20:14 20:14 PMHx: COPD; mr2 mr2 20:14 20:14 PMHx: Diabetes - IDDM; mr2 mr2 20:14 20:14 PMHx: kidney failure; mr2 mr2 20:14 20:14 PMHx: Skin Cancer -back, neck, and arm; mr2 mr2 20:14 20:14 PMHx: CHF; mr2 mr2 20:14 20:14 PMHx: Blockage - unsure if it's in her neck or heart; mr2 mr2 20:14 20:14 PMHx: CAD; mr2 mr2
--- NOTE | 2021-03-10 00:14 | EDPHYS ---
Physician Documentation [facility] Name: Sarah Parnell Age: 70 yrs Sex: Female : 1950 Arrival Date: 03/09/2021 Time: 19:51 Bed 13 Private MD: ED Physician Antonio Tamez HPI: 03/09 20:30 This 70 yrs old Female presents to ER via Ambulatory with complaints of kb PROBLEMS WITH BLOOD SUGER. 20:30 The patient or guardian reports cough, that is intermittent, described as moderate, kb difficulty breathing. Pt reports cough, shortness of breath, nausea, vomiting, pressure on head. States "My body doesn't feel good and I feel sick." Normally when she feels this way it is due to high blood sugar. 20:33 Onset: The symptoms/episode began/occurred today. Severity of symptoms: At their worst kb the symptoms were moderate, in the emergency department the symptoms are unchanged. Modifying factors: The symptoms are alleviated by nothing, the symptoms are aggravated by nothing. Associated signs and symptoms: Pertinent positives: nausea, vomiting, Pertinent negatives: chest pain, diarrhea, ear ache, fever, rhinorrhea, sore throat. The patient has experienced similar episodes in the past, a few times. The patient has not recently seen a physician. Historical: - Immunization history:: Adult Immunizations up to date. - Social history:: Smoking status: Patient denies any tobacco usage or history of. ROS: 20:45 Neuro: Negative for headache, weakness, numbness, tingling, and seizure. kb 20:45 Constitutional: Positive for malaise. 20:45 Respiratory: Positive for cough, shortness of breath. 20:45 Abdomen/GI: Positive for nausea and vomiting, Negative for abdominal pain. 20:45 All other systems are negative. Exam: 20:44 Constitutional: This is a well developed, well nourished patient who is awake, alert, kb and in no acute distress. Head/Face: Normocephalic, atraumatic. ENT: Moist Mucous membranes Cardiovascular: Regular rate and rhythm with a normal S1 and S2. No gallops, murmurs, or rubs. No pulse deficits. Respiratory: Respirations even and unlabored. No increased work of breathing, no retractions or nasal flaring. Skin: Warm, dry with normal turgor. Normal color. MS/ Extremity: Pulses equal, no cyanosis. Neurovascular intact. Full, normal range of motion. Neuro: Awake and alert, GCS 15, oriented to person, place, time, and situation. Moves all extremities. Normal gait. Psych: Awake, alert, with orientation to person, place and time. Behavior, mood, and affect are within normal limits. 20:44 Abdomen/GI: Inspection: abdomen appears normal, Bowel sounds: normal, Palpation: soft, in all quadrants, mild abdominal tenderness, in all quadrants. Vital Signs: 20:09 BP 138 / 74; Pulse 114; Resp 20; Temp 99.4; Pulse Ox 94% on R/A; mr2 20:32 Weight 108.86 kg; Height 5 ft. 2 in. (157.48 cm); mr2 21:00 BP 118 / 50; Pulse 108; Resp 19; Pulse Ox 100% on R/A; Pain 0/10; dc2 22:00 BP 117 / 79; Pulse 106; Resp 17; Pulse Ox 99% ; Pain 0/10; dc2 03/10 00:00 BP 126 / 73; Pulse 101; Resp 18; Temp 97.4(O); Pulse Ox 97% on R/A; Pain 0/10; dc2 03/09 20:32 Body Mass Index 43.90 (108.86 kg, 157.48 cm) mr2 MDM: 03/09 20:19 Patient medically screened. kb 20:45 Data reviewed: vital signs, nurses notes. Data interpreted: Pulse oximetry: on room air kb is 94 %. Interpretation: acceptable. 03/10 00:10 Counseling: I had a detailed discussion with the patient and/or guardian regarding: the kb historical points, exam findings, and any diagnostic results supporting the discharge/admit diagnosis, lab results, radiology results, the need for outpatient follow up, a family practitioner, to return to the emergency department if symptoms worsen or persist or if there are any questions or concerns that arise at home. ED course: Discussed case including diagnostics with ERP. Recommends Rocephin dose here and augmentin for home for WBC of 21. No source of infection identified. Urine, CXR, CT abd/pelvis all wnl. No source of infection on exam. 03/09 20:30 Order name: Basic Metabolic Panel kb 03/09 20:30 Order name: CBC with Diff kb 03/09 20:30 Order name: LFT's; Complete Time: 21:44 kb 03/09 20:30 Order name: Magnesium; Complete Time: 21:44 kb 03/09 20:30 Order name: NT PRO-BNP; Complete Time: 21:44 kb 03/09 20:30 Order name: PT-INR; Complete Time: 21:44 kb 03/09 20:30 Order name: Troponin (emerg Dept Use Only); Complete Time: 21:44 kb 03/09 20:30 Order name: XRAY Chest (1 view); Complete Time: 21:27 kb 03/09 20:30 Order name: COVID-19 SARS RT PCR (Document "Date of Onset" if Symptomatic); Complete kb Time: 22:50 03/09 20:30 Order name: Basic Metabolic Panel; Complete Time: 21:44 EDMS 03/09 20:30 Order name: CBC with Automated Diff; Complete Time: 22:50 EDMS 03/09 20:51 Order name: Glucose, Ancillary Testing; Complete Time: 20:53 EDMS 03/09 21:42 Order name: Urine Dipstick-Ancillary; Complete Time: 21:44 EDMS 03/09 22:42 Order name: Manual Differential; Complete Time: 22:50 EDMS 03/09 20:30 Order name: EKG; Complete Time: 20:31 kb 03/09 20:30 Order name: Cardiac monitoring; Complete Time: 21:58 kb 03/09 20:30 Order name: EKG - Nurse/Tech; Complete Time: 21:58 kb 03/09 20:30 Order name: IV Saline Lock; Complete Time: 21:58 kb 03/09 20:30 Order name: Labs collected and sent; Complete Time: 21:42 kb 03/09 20:30 Order name: O2 Per Protocol; Complete Time: 21:42 kb 03/09 20:30 Order name: O2 Sat Monitoring; Complete Time: 21:42 kb 03/09 20:30 Order name: Blood Glucose Level; Complete Time: 20:58 kb 03/09 22:04 Order name: CT Abd/Pelvis - IV Contrast Only kb Administered Medications: 03/09 22:51 Drug: NS 0.9% 1000 ml Route: IV; Rate: 1000 ml; Infused Over: 2 hrs; Site: left dc2 antecubital; Delivery: Primary tubing; 03/10 00:20 Follow up: IV Status: Completed infusion; IV Intake: 1000ml dc2 00:18 Drug: Rocephin (cefTRIAXone) 1 grams Route: IV; Rate: calculated rate; Infused Over: 2 dc2 mins; Site: right wrist; 00:30 Follow up: IV Status: Completed infusion; IV Intake: 10ml dc2 00:34 Follow up: Response: No adverse reaction dc2 Disposition: 00:37 Co-signature as Attending Physician, Antonio Tamez MD. pk Disposition Summary: 03/10/21 00:13 Discharge Ordered Location: Home kb Condition: Stable kb Diagnosis - Elevated white blood cell count kb - Acute upper respiratory infection, unspecified kb Followup: kb - With: Emergency Department - When: As needed - Reason: Worsening of condition Followup: kb - With: Private Physician - When: 2 - 3 days - Reason: Recheck today's complaints, Continuance of care, Re-evaluation by your physician Discharge Instructions: - Discharge Summary Sheet kb - Upper Respiratory Infection, Adult, [id number] kb - Viral Respiratory Infection, [id number] kb Forms: - Medication Reconciliation Form kb - Thank You Letter kb - Antibiotic Education kb - Prescription Opioid Use kb Prescriptions: - Augmentin 875-125 mg Oral Tablet - take 1 tablet by ORAL route every 12 hours for 10 days; 20 tablet; Refills: 0, kb Product Selection Permitted Signatures: Dispatcher [employer] EDZhane Mar, PAYMENT MANAGER-C PAYMENT MANAGER-Antonio Clemente MD MD pkShelton Rico RN RN mr2 Shantel Jerez RN RN dc2 Corrections: (The following items were deleted from the chart) 03/09 20:14 20:14 PMHx: Hypertension; mr2 mr2 20:14 20:14 PMHx: Hypothyroidism; mr2 mr2 20:14 20:14 PMHx: Depression; mr2 mr2 20:14 20:14 PMHx: COPD; mr2 mr2 20:14 20:14 PMHx: Diabetes - IDDM; mr2 mr2 20:14 20:14 PMHx: kidney failure; mr2 mr2 20:14 20:14 PMHx: Skin Cancer -back, neck, and arm; mr2 mr2 20:14 20:14 PMHx: CHF; mr2 mr2 20:14 20:14 PMHx: Blockage - unsure if it's in her neck or heart; mr2 mr2 20:14 20:14 PMHx: CAD; mr2 mr2 22:03 22:02 Urine Dipstick-Ancillary ordered. kb kb
[2021-03-10] MEDS ORDERED: CEFTRIAXONE 1000 MG/VIAL ONE (00:19)
[2021-03-10 00:48] VITALS: BP 126/73; TEMP 97.4; O2SAT 97
--- NOTE | 2021-03-10 13:53 | RAD REPORT ---
EXAM DESCRIPTION: CT - Abdomen Pelvis W Contrast - 03/10/2021 6:54 am CLINICAL HISTORY: ABD PAIN. Mid upper abdominal pain with nausea. COMPARISON: None. TECHNIQUE: CT of the abdomen and pelvis was performed following intravenous administration of iodina nasrin contrast. Arterial phase images through the abdomen, and portal venous phase images through the a bdomen and pelvis were obtained. Oral contrast was not administered. Axial, coronal, and sagittal sof t tissue window reconstructions were created and sent to PACS. This exam was performed according to our departmental dose-optimization program, which includes autom ated exposure control, adjustment of the mA and/or kV according to patient size and/or use of iterati ve reconstruction technique. FINDINGS: Thoracic: No significant abnormality. Hepatobiliary: No concerning hepatic lesion identified. Mild hepatomegaly, measuring 19.2 cm in lengt h. The portal veins are patent. The gallbladder is unremarkable. No biliary ductal dilatation. Pancreas: Unremarkable. Spleen: Unremarkable. Gastrointestinal: Gastric band in place. Diminutive gastric pouch proximal to the gastric band. No ev idence of bowel obstruction or perienteric inflammation. The appendix is nonvisualized, but there are no pericecal inflammatory changes. Adrenals: No abnormality identified in either adrenal gland. Renal: Punctate interpolar left renal calculus. No ureteral calculi or hydronephrosis bilaterally. Ti ny right renal hypodensity, too small to accurately characterize but statistically likely a cyst. No concerning parenchymal abnormality in either kidney. Bladder/Reproductive: Unremarkable appearance of the urinary bladder by CT technique. Unremarkable CT appearance of the uterus and ovaries. Vascular/Lymphatics: No lymphadenopathy identified by CT size criteria. Abdominal aorta is normal in caliber. Mild calcific atherosclerosis. Musculoskeletal: No concerning osseous lesion identified. Osteopenia. Moderate facet arthrosis in the lumbar spine, with degenerative grade 1 anterolisthesis at L4-5. Fluid / peritoneum: No significant free fluid. No free intraperitoneal air identified. IMPRESSION 1. Gastric band in place, with diminutive size of the gastric pouch proximal to the ban d, uncertain clinical significance. 2. Punctate left renal calculus. No ureteral calculi or hydronephrosis bilaterally. 3. Mild hepatomegaly. Electronically signed by: Dorothy Magallanes MD 03/09/2021 10:55 PM CDT Due to temporary technical issues with the PACS/Fluency reporting system, reports are being signed by the in house radiologists without review as a courtesy to insure prompt reporting. The interpreting radiologist is fully responsible for the content of the report.
== END 2021-03-10 00:36 | disposition home or self-care (01) ==
LOC: ER 19:49
DX: J06.9 Acute upper respiratory infection, unspecified (principal); D72.829 Elevated white blood cell count, unspecified; Z20.822 Contact with and (suspected) exposure to COVID-19
CPT/HCPCS: 96361; 93005; 85025; 80048; 36415; 83735; 85610; 82947; 80076; 81003; 84484; 83880; 74177; 71045; 96374; 99285; U0003; Q9967; J7030

== ENCOUNTER 2021-03-11 15:40 | Emergency (ER) | payer OTHER ==
--- NOTE | 2021-03-11 16:59 | EDPHYS ---
Physician Documentation [facility] Name: Sarah Parnell Age: 70 yrs Sex: Female : 1950 Arrival Date: 03/11/2021 Time: 15:45 Bed Waiting Private MD: ED Physician Pepe Luecro HPI: 03/11 16:50 This 70 yrs old Female presents to ER via Ambulatory with complaints of Rash. cp 16:50 The rash is located on the lower abdomen. The rash can be described as erythematous, cp burning. 16:50 Onset: The symptoms/episode began/occurred yesterday. cp 16:50 Associated signs and symptoms: Pertinent positives: burning sensation, Pertinent cp negatives: difficulty breathing, itching, swelling of lips, swelling of throat, swelling of tongue. Severity of symptoms: in the emergency department the symptoms are unchanged. Patient reports noticing rash after taking first dose of prescribed Augmentin yesterday. Historical: - Allergies: 16:16 Vancomycin; vg1 - PMHx: 16:16 COPD; Rapid Heart Rate; Diabetes mellitus; Depressive disorder; Hypertensive disorder; vg1 Edema; - PSHx: 16:16 Thyroidectomy; vg1 - Immunization history:: Adult Immunizations up to date, Client reports receiving the 2nd dose of the Covid vaccine. - Social history:: Smoking status: Patient denies any tobacco usage or history of. ROS: 16:55 Skin: Positive for rash, of the lower abdomen. cp 16:55 Constitutional: Negative for body aches, chills, fever, poor PO intake. cp 16:55 Respiratory: Negative for cough, shortness of breath, wheezing. 16:55 Abdomen/GI: Negative for abdominal pain, nausea, vomiting, and diarrhea. Exam: 16:57 Constitutional: The patient appears in no acute distress, alert, awake, non-toxic, well cp developed, well nourished, obese. 16:57 Head/Face: Normocephalic, atraumatic. cp 16:57 Eyes: Periorbital structures: appear normal, Conjunctiva: normal, no exudate, no cp injection, Sclera: no appreciated abnormality, Lids and lashes: appear normal, bilaterally. 16:57 Chest/axilla: Inspection: normal. 16:57 Cardiovascular: Rate: tachycardic, Edema: is not appreciated, JVD: is not appreciated. 16:57 Respiratory: the patient does not display signs of respiratory distress, Respirations: normal, no use of accessory muscles, no retractions, labored breathing, is not present, Breath sounds: are clear throughout, no decreased breath sounds. 16:57 Abdomen/GI: Inspection: obese Palpation: abdomen is soft and non-tender, in all quadrants. 16:57 Skin: rash can be described as erythematous, on the lower abdomen. Vital Signs: 16:12 BP 144 / 62; Pulse 102; Resp 18; Temp 97.5; Pulse Ox 100% ; Weight 112.49 kg; Height 5 vg1 ft. 2 in. (157.48 cm); Pain 0/10; 16:12 Body Mass Index 45.36 (112.49 kg, 157.48 cm) vg1 MDM: 16:56 Patient medically screened. cp 16:58 Differential diagnosis: allergic reaction, cellulitis. cp 16:58 Data reviewed: vital signs, nurses notes, and as a result, I will discharge patient. 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 Administered Medications: No medications were administered Disposition: 17:00 Chart complete. cp Disposition Summary: 03/11/21 16:58 Discharge Ordered Location: Home cp Problem: new cp Symptoms: are unchanged cp Condition: Stable cp Diagnosis - Allergy status to unspecified drugs, medicaments and biological substances status cp Followup: cp - With: Private Physician - When: 2 - 3 days - Reason: Recheck today's complaints Discharge Instructions: - Discharge Summary Sheet cp - Drug Allergy cp - Skin Yeast Infection cp Forms: - Medication Reconciliation Form cp - Thank You Letter cp - Antibiotic Education cp - Prescription Opioid Use cp Prescriptions: - Pepcid 20 mg Oral Tablet - take 1 tablet by ORAL route every 12 hours for 10 days; 20 tablet; Refills: 0, cp Product Selection Permitted - Zithromax Z-Edwin 250 mg Oral Tablet - take 1 tablet by ORAL route as directed for 5 days Day 1 - take two (2) tablets cp one time. Day 2, 3, 4 , 5 take one (1) tablet once daily.; 6 tablet; Refills: 0, Product Selection Permitted - nystatin 100,000 unit/gram Topical ointment - apply 1 application by TOPICAL route 3 times per day for 8-10 days apply to cp lower abdominal folds/pannus area; 60 gram; Refills: 0, Product Selection Permitted Addendum: 03/21/2021 05:23 Co-signature as Attending Physician, Pepe [employer]'s history reviewed, m a2 patient interviewed, and examined. I agree with assessment and care plan and confirm the diagnosis (es) above. Signatures: Tejinder Pearson PA PA cp Alzahri, Mohammad, MD MD ma2 Amara Velazquez RN RN vg1
--- NOTE | 2021-03-11 16:59 | ER ---
Nurse's Notes [facility] Name: Sarah Parnell Age: 70 yrs Sex: Female : 1950 Arrival Date: 03/11/2021 Time: 15:45 Bed Waiting Private MD: Diagnosis: Allergy status to unspecified drugs, medicaments and biological substances status Presentation: 03/11 16:12 Chief complaint: Patient states: Was seen in ED on 03/09/21 and was given vg1 Amoxicillin/Clav 875/125 mg, states after taking the first dose pt noticed a rash on lower ABD and under ABD flap. Denies difficulty breathing or sore throat; states nausea and diarrhea. Reports that rash is a burning sensation and denies itchiness. Coronavirus screen: Vaccine status: Patient reports receiving the 2nd dose of the covid vaccine. Ebola Screen: Patient negative for fever greater than or equal to 101.5 degrees Fahrenheit, and additional compatible Ebola Virus Disease symptoms. Initial Sepsis Screen: Does the patient meet any 2 criteria? No. Patient's initial sepsis screen is negative. Does the patient have a suspected source of infection? No. Patient's initial sepsis screen is negative. Risk Assessment: Do you want to hurt yourself or someone else? Patient reports no desire to harm self or others. Onset of symptoms was March 10, 2021. 16:12 Method Of Arrival: Ambulatory vg1 16:12 Acuity: ALTON 3 vg1 Triage Assessment: 16:16 General: Appears in no apparent distress. uncomfortable, Behavior is calm, cooperative. vg1 Pain: Complains of pain in right lower quadrant and left lower quadrant. Historical: - Allergies: 16:16 Vancomycin; vg1 - PMHx: 16:16 COPD; Rapid Heart Rate; Diabetes mellitus; Depressive disorder; Hypertensive disorder; vg1 Edema; - PSHx: 16:16 Thyroidectomy; vg1 - Immunization history:: Adult Immunizations up to date, Client reports receiving the 2nd dose of the Covid vaccine. - Social history:: Smoking status: Patient denies any tobacco usage or history of. Screenin:11 Abuse screen: Denies threats or abuse. Denies injuries from another. Nutritional ss screening: No deficits noted. Tuberculosis screening: Never had TB. Fall Risk None identified. Assessment: 17:11 General: Appears in no apparent distress. comfortable, Behavior is calm, cooperative. ss Neuro: Level of Consciousness is awake, alert, obeys commands, Oriented to person, place, time, situation. Cardiovascular: Capillary refill < 3 seconds is brisk in bilateral fingers Patient's skin is warm and dry. Respiratory: Airway is patent Respiratory effort is even, unlabored, Respiratory pattern is regular, symmetrical. Derm: Skin is intact, is healthy with good turgor, Skin is dry, Skin is pink, warm \T\ dry. normal. Vital Signs: 16:12 BP 144 / 62; Pulse 102; Resp 18; Temp 97.5; Pulse Ox 100% ; Weight 112.49 kg; Height 5 vg1 ft. 2 in. (157.48 cm); Pain 0/10; 16:12 Body Mass Index 45.36 (112.49 kg, 157.48 cm) vg1 ED Course: 15:45 Patient arrived in ED. ds1 16:16 Triage completed. vg1 16:16 Arm band placed on. vg1 16:39 Tejinder Pearson PA is PHCP. cp 16:39 Pepe Lucero MD is Attending Physician. cp 17:11 Patient has correct armband on for positive identification. Bed in low position. Call ss light in reach. 17:11 No provider procedures requiring assistance completed. Patient did not have IV access ss during this emergency room visit. Administered Medications: No medications were administered Outcome: 16:58 Discharge ordered by MD. cp 17:11 Discharged to home ambulatory, with friend. ss 17:11 Condition: good 17:11 Discharge instructions given to patient, family, Instructed on discharge instructions, follow up and referral plans. medication usage, Demonstrated understanding of instructions, follow-up care, medications, Prescriptions given X 3. 17:12 Patient left the ED. ss Signatures: Lina Escobar ds1 Radha Pineda RN RN ss Tejinder Pearson PA PA cp Garcia, Victoria RN RN vg1
[2021-03-11 17:22] VITALS: BP 144/62; TEMP 97.5; O2SAT 100
--- OUTSIDE RECORDS SUMMARY | 2021-03-19 12:42 | XMS REPORT | Continuity of Care Document ---
:1950 Author Organization [facility] Address [address] [place] [address] Dr. Lucas [address] [place] [id number] Care Team Providers Name Role Phone Kelsi RAE Attending Clinician Unavailable Kelsi RAE Admitting Clinician Unavailable Problems This patient has no known problems. Allergies, Adverse Reactions, Alerts Allergy Allergy Status Severity Reaction(s) Onset Inactive Treating Comm ents Source Name Type Date Date Clinician NO KNOWN Allergy Active [facility] Medications This patient has no known medications. Procedures This patient has no known procedures. Results Test Description Test Time Test Comments Results Result Comments Source PLATELET AGGREGATION: FUNCTION SCREEN 2016-07-16 10:08:00 Test Item Value Reference Range Interpretation Comme nts WEAK ADP RESULT(BEAKER) (test code = 79 % 60-91 2135) PLATELET FUNCTION SCREEN INTERP 60-100% indicates normal platelet (BEAKER) (test code = 2173) function [id number] (BEAKER) (test Emanuel Rosas M.D. (electonic code = 2622) signature) PLATELET COUNT AGG (BEAKER) (test code 132 K/CU MM 150-430 L = 2656) Platelet Function Screen results may be falsely low with platelet counts<100,000/cu mm.POCT-GLUCOSE [id number] 12:30:00 Test Item Value Reference Range Interpretation Comments POC-GLUCOSE METER 102 mg/dL 70-[address] [facility] 6720 (BEAKER) (test code = GERRY Lam [facility] 1538) [id number] HEMOGLOBIN [id number] 10:45:00 Test Item Value Reference Range Interpretation Comments HEMOGLOBIN A1C (BEAKER) (test code = 7.1 % 4.3-6.1 H 368) POCT-GLUCOSE [id number] 07:42:00 Test Item Value Reference Range Interpretation Comments POC-GLUCOSE METER 118 mg/dL 70-[address] [facility] 6720 (BEAKER) (test code = GERRY [place] 1538) [id number] 01:11:00 Test Item Value Reference Range Interpretation Comments PHOSPHORUS (BEAKER) (test code = 2.7 mg/dL 2.3-4.7 604) [id number] 01:11:00 Test Item Value Reference Range Interpretation Comments MAGNESIUM (BEAKER) (test code = 1.7 mg/dL 1.6-2.6 627) BASIC METABOLIC [id number] 01:11:00 Test Item Value Reference Range Interpretation [...] PATIEN TS. CBC W/PLT COUNT & AUTO [id number] 00:57:00 Test Item Value Reference Range Interpretation [...] L 0.00-0.20 (test code = 417) 0.00POCT-GLUCOSE [id number] 21:49:00 Test Item Value Reference Range Interpretation Comments POC-GLUCOSE METER 172 mg/dL 70-[address] [facility] 6720 (BEAKER) (test code = GERRY [place] 1538) [id number]
== END 2021-03-11 17:12 | disposition home or self-care (01) ==
LOC: ER 15:40
DX: R21 Rash and other nonspecific skin eruption (principal); I10 Essential (primary) hypertension; Z88.9 Allergy status to unspecified drugs, medicaments and biological substances; Z88.3 Allergy status to other anti-infective agents
CPT/HCPCS: 99282

== ENCOUNTER 2021-07-09 11:12 | Emergency (ER) | payer OTHER ==
[2021-07-09 11:48] LABS: Absolute Lymphocytes (CBC) 1.5 K/uL (0.7-4.9); MPV 8.1 fL (7.6-11.3); RBC Red Blood Cell Count 4.82 M/uL (3.86-4.86)
[2021-07-09 11:55] LABS: Urine Blood Negative (Negative); Urine Glucose Negative (Negative); Urine Protein Negative (Negative)
[2021-07-09 13:06] LABS: Albumin 3.2 g/dL (3.4-5.0); Bilirubin Total 1.3 mg/dL (0.2-1.0); Potassium 3.8 mmol/L (3.5-5.1)
--- NOTE | 2021-07-09 14:01 | ER ---
Nurse's Notes [facility] Name: Sarah Parnell Age: 70 yrs Sex: Female : 1950 Arrival Date: 07/09/2021 Time: 11:16 Bed 19 Private MD: Diagnosis: Hepatitis, unspecified Presentation: 07/09 11:29 Chief complaint: Patient states: "The doctor called this morning and told me to go to [facility] the emergency room for abnormal lab values ". Coronavirus screen: Vaccine status: Patient reports receiving the 2nd dose of the covid vaccine. Ebola Screen: No symptoms or risks identified at this time. Initial Sepsis Screen: Does the patient meet any 2 criteria? No. Patient's initial sepsis screen is negative. Risk Assessment: Do you want to hurt yourself or someone else? Patient reports no desire to harm self or others. Onset of symptoms was July 09, 2021. 11:29 Method Of Arrival: Ambulatory [facility] 11:29 Acuity: ALTON 3 [facility] 11:44 Initial Sepsis Screen: Does the patient have a suspected source of infection? No. amato Patient's initial sepsis screen is negative. Triage Assessment: 11:45 General: Appears in no apparent distress. Behavior is calm. Historical: - Allergies: 11:32 Vancomycin; [facility] - Home Meds: 11:45 bupropion HCl 150 mg Oral Tb24 1 tab once daily [Active]; levothyroxine 200 mcg/mL soln amato 1 mL once daily [Active]; metoprolol succinate 25 mg oral Tb24 1 tab once daily [Active]; hydrochlorothiazide 25 mg Oral tab 1 tab once daily [Active]; glipizide 5 mg Oral tab 1 tab 2 times per day [Active]; Trileptal 300 mg oral tab 1 tab 2 times per day [Active]; lovastatin 40 mg Oral tab 1 tab once daily [Active]; Latuda 40 mg oral tab 1 tab once daily [Active]; Levemir U-100 Insulin 100 unit/mL subcutaneous soln twice a day [Active]; Anoro Ellipta 62.5-25 mcg/actuation inhalation dsdv [Active]; Singulair 10 mg Oral tab 1 tab once daily [Active]; Farxiga 5 mg oral tab [Active]; gabapentin 100 mg oral cap twice a day [Active]; Novolin 70/30 InnoLet Insulin 100 unit/mL (70-30) Sub-Q inpn [Active]; - PMHx: 11:32 COPD; depressive disorder; diabetes mellitus; EDEMA; Hypertensive disorder; RAPID HEART ag7 RATE; - PSHx: 11:32 Thyroidectomy; ag7 - Immunization history:: Adult Immunizations up to date. - Social history:: Smoking status: Patient reports the use of cigarette tobacco products, Patient/guardian denies using tobacco, but has a distant history of tobacco abuse. Screenin:43 Abuse screen: Denies threats or abuse. Denies injuries from another. Nutritional amato screening: No deficits noted. Tuberculosis screening: No symptoms or risk factors identified. Fall Risk None identified. Assessment: 11:43 Reassessment: pt presented to ED referred by PCP for f/u on abnormal lab values. amato General: Appears in no apparent distress. Behavior is calm, cooperative. Pain: Denies pain. Neuro: No deficits noted. Cardiovascular: No deficits noted. Respiratory: No deficits noted. Vital Signs: 11:29 BP 138 / 64; Pulse 99; Resp 16; Temp 97.1; Pulse Ox 99% ; Pain 0/10; ag7 11:45 BP 125 / 55; Pulse 82; Resp 18; Pulse Ox 97% on R/A; amato 12:18 BP 106 / 59; Pulse 80; Resp 18; Pulse Ox 98% on R/A; amato 13:08 BP 118 / 61; Pulse 76; Resp 18; Pulse Ox 97% on R/A; amato ED Course: 11:16 Patient arrived in ED. as 11:18 Adan Salas PA is PHCP. [facility] 11:18 Jay Jonse MD is Attending Physician. [facility] 11:32 Triage completed. ag7 11:33 Arm band placed on right wrist. ag7 11:43 Patient has correct armband on for positive identification. Bed in low position. amato 11:43 Basic Metabolic Panel Sent. amato 11:43 CBC with Diff Sent. amato 11:43 Hepatic Function Sent. amato 11:43 Lipase Sent. amato 11:43 No provider procedures requiring assistance completed. Inserted saline lock: 20 gauge amato in left antecubital area, using aseptic technique. 13:59 Denis Martin MD is Referral Physician. [facility] 14:00 Ike Martinez MD is Referral Physician. [facility] 14:25 Leidy Frias, RN is Primary Nurse. [facility] 14:25 IV discontinued, intact, bleeding controlled, No redness/swelling at site. Pressure 7 dressing applied. Administered Medications: No medications were administered Outcome: 14:00 Discharge ordered by . [facility] 14:25 Discharged to home ambulatory, with friend. [facility] 14:25 Condition: stable 14:25 Discharge instructions given to patient, friend, Instructed on discharge instructions, follow up and referral plans. Demonstrated understanding of instructions, follow-up care. 14:26 Patient left the ED. [facility] Signatures: Adan Salas PA PA jmm Martinez, Amelia as Leal, Jahala, RN RN jl7 Leidy Frias, VELIA RN Jacqueline Candelaria RN RN 7
--- NOTE | 2021-07-09 14:02 | EDPHYS ---
Physician Documentation [facility] Name: Sarah Parnell Age: 70 yrs Sex: Female : 1950 Arrival Date: 07/09/2021 Time: 11:16 Bed 19 Private MD: ED Physician Jay Jones HPI: 07/09 11:33 This 70 yrs old Female presents to ER via Ambulatory with complaints of Abnormal Lab jmm Results. 11:33 The patient presents with abdominal pain. Onset: The symptoms/episode began/occurred jmm gradually, 3 day(s) ago. The symptoms do not radiate. Associated signs and symptoms: Pertinent positives: adriana colored stools. The symptoms are described as achy, intermittent. Modifying factors: The symptoms are alleviated by nothing, the symptoms are aggravated by nothing. This is a 70 year old female with a history of COPD, depression, dm, htn that presents to the ED with complaints of mild abdominal pain, adriana colored stools beginning approx 3 days ago. PCP had concerns due to elevated LFT's for gallbladder obstruction. Patient states her pain has currently resolved. Did not receive US results from outpatient study. . Historical: - Allergies: 11:32 Vancomycin; ag7 - Home Meds: 11:45 bupropion HCl 150 mg Oral Tb24 1 tab once daily [Active]; levothyroxine 200 mcg/mL soln amato 1 mL once daily [Active]; metoprolol succinate 25 mg oral Tb24 1 tab once daily [Active]; hydrochlorothiazide 25 mg Oral tab 1 tab once daily [Active]; glipizide 5 mg Oral tab 1 tab 2 times per day [Active]; Trileptal 300 mg oral tab 1 tab 2 times per day [Active]; lovastatin 40 mg Oral tab 1 tab once daily [Active]; Latuda 40 mg oral tab 1 tab once daily [Active]; Levemir U-100 Insulin 100 unit/mL subcutaneous soln twice a day [Active]; Anoro Ellipta 62.5-25 mcg/actuation inhalation dsdv [Active]; Singulair 10 mg Oral tab 1 tab once daily [Active]; Farxiga 5 mg oral tab [Active]; gabapentin 100 mg oral cap twice a day [Active]; Novolin 70/30 InnoLet Insulin 100 unit/mL (70-30) Sub-Q inpn [Active]; - PMHx: 11:32 COPD; depressive disorder; diabetes mellitus; EDEMA; Hypertensive disorder; RAPID HEART ag7 RATE; - PSHx: 11:32 Thyroidectomy; ag7 - Immunization history:: Adult Immunizations up to date. - Social history:: Smoking status: Patient reports the use of cigarette tobacco products, Patient/guardian denies using tobacco, but has a distant history of tobacco abuse. ROS: 11:33 Constitutional: Negative for fever, chills, and weight loss, Cardiovascular: Negative [facility] for chest pain, palpitations, and edema, Respiratory: Negative for shortness of breath, cough, wheezing, and pleuritic chest pain. 11:33 Abdomen/GI: Positive for abdominal pain. 11:33 All other systems are negative. Exam: 11:33 Constitutional: This is a well developed, well nourished patient who is awake, alert, jmm and in no acute distress. Head/Face: atraumatic. Eyes: EOMI, no conjunctival erythema appreciated ENT: Moist Mucus Membranes Neck: Trachea midline, Supple Chest/axilla: Normal chest wall appearance and motion. Cardiovascular: Regular rate and rhythm. No edema appreciated Respiratory: Normal respirations, no respiratory distress appreciated 11:33 Back: Normal ROM Skin: General appearance color normal MS/ Extremity: Moves all extremities, no obvious deformities appreciated, no edema noted to the lower extremities Neuro: Awake and alert Psych: Behavior is normal, Mood is normal, Patient is cooperative and pleasant 11:33 Abdomen/GI: Inspection: abdomen appears normal, Bowel sounds: normal, Palpation: soft, in all quadrants, nontender, in all quadrants. Vital Signs: 11:29 BP 138 / 64; Pulse 99; Resp 16; Temp 97.1; Pulse Ox 99% ; Pain 0/10; ag7 11:45 BP 125 / 55; Pulse 82; Resp 18; Pulse Ox 97% on R/A; amato 12:18 BP 106 / 59; Pulse 80; Resp 18; Pulse Ox 98% on R/A; amato 13:08 BP 118 / 61; Pulse 76; Resp 18; Pulse Ox 97% on R/A; amato MDM: 11:33 Patient medically screened. [facility] 13:57 Data reviewed: vital signs, nurses notes. Counseling: I had a detailed discussion with [facility] the patient and/or guardian regarding: the historical points, exam findings, and any diagnostic results supporting the discharge/admit diagnosis, lab results, radiology results, the need for outpatient follow up, to return to the emergency department if symptoms worsen or persist or if there are any questions or concerns that arise at home. ED course: I reviewed US from 07/09/2021. No stones, CBD dilation, no GB wall thickening. Lipase wnl. Patient has no abdominal pain. Patient advised to follow up with GI and otherwise given strict return precautions. patient understood and agrees with the plan of care. . 07/09 11:35 Order name: Basic Metabolic Panel [facility] 07/09 11:35 Order name: CBC with Diff [facility] 07/09 11:35 Order name: Hepatic Function [facility] 07/09 11:35 Order name: Lipase [facility] 07/09 11:35 Order name: Basic Metabolic Panel; Complete Time: 13:12 EDME 07/09 11:35 Order name: CBC with Automated Diff; Complete Time: 12:56 EDME 07/09 11:35 Order name: IV Saline Lock; Complete Time: 11:43 [facility] 07/09 11:35 Order name: Labs collected and sent; Complete Time: 11:43 [facility] 07/09 11:35 Order name: Liver (Hepatic) Function; Complete Time: 13:12 EDMS 07/09 11:35 Order name: Lipase; Complete Time: 13:12 EDME 07/09 11:55 Order name: Urine Dipstick-Ancillary; Complete Time: 12:56 EDMS Administered Medications: No medications were administered Disposition: 15:35 Co-signature as Attending Physician, Jay Jones MD I agree with the assessment and rn plan of care. Attestation: The patient's history, exam findings, diagnostics, and a summary of any interventions or procedures was reviewed in detail with Adan HULL. Disposition Summary: 07/09/21 14:00 Discharge Ordered Location: Home jm Condition: Stable [facility] Diagnosis - Hepatitis, unspecified jmm Followup: [facility] - With: Denis Martin MD - When: 2 - 3 days - Reason: Recheck today's complaints, Continuance of care, Re-evaluation by your physician Followup: jm - With: Ike Martinez MD - When: 2 - 3 days - Reason: Recheck today's complaints, Continuance of care, Re-evaluation by your physician Discharge Instructions: - Discharge Summary Sheet jmm - Eating Plan for Hepatitis jmm Forms: - Medication Reconciliation Form jmm - Thank You Letter jmm - Antibiotic Education alfonsom - Prescription Opioid Use [facility] Signatures: Dispatcher [employer] Adan Garcia PA PA jmm Nieto, Roman, MD MD rn Leidy Frias RN RN amato Jacqueline Ham RN RN ag7
[2021-07-09 14:52] VITALS: TEMP 97.1
[2021-07-09 14:55] VITALS: BP 118/61; O2SAT 97
== END 2021-07-09 14:26 | disposition home or self-care (01) ==
LOC: ER 11:12
DX: K75.9 Inflammatory liver disease, unspecified (principal); I10 Essential (primary) hypertension; E11.9 Type 2 diabetes mellitus without complications; Z79.4 Long term (current) use of insulin; J44.9 Chronic obstructive pulmonary disease, unspecified; F32.A Depression, unspecified
CPT/HCPCS: 36415; 80048; 80076; 81003; 83690; 85025; 99283

== ENCOUNTER 2021-08-08 10:03 | Emergency (ER) | payer OTHER ==
[2021-08-08 10:14] LABS: Hematocrit 38.5 % (36.0-45.0); RBC Red Blood Cell Count 4.59 M/uL (3.86-4.86)
[2021-08-08 10:15] LABS: Absolute Lymphocytes (CBC) 1.4 K/uL (0.7-4.9); Lymphocytes % 17.6 % (15.3-44.8); MPV 7.6 fL (7.6-11.3)
[2021-08-08] MEDS ORDERED: HYDROCORTISONE SUC 100 MG INJ ONE (10:15)
[2021-08-08] MEDS ORDERED: GLUCAGON 1 MG/VIAL ONE (10:15)
[2021-08-08] MEDS ORDERED: D5W 100 ML IV ONE (10:15)
[2021-08-08 11:21] LABS: Protime INR 1.23
[2021-08-08 11:47] LABS: Troponin High Sensitivity 39.5 pg/mL (<58.9)
[2021-08-08 11:48] LABS: Potassium 4.3 mmol/L (3.5-5.1)
--- NOTE | 2021-08-08 12:45 | EDPHYS ---
Physician Documentation [facility] Name: Sarah Parnell Age: 70 yrs Sex: Female : 1950 Arrival Date: 08/08/2021 Time: 10:04 Bed 19 Private MD: ED Physician Jay Jones HPI: 08/08 10:12 This 70 yrs old Female presents to ER via Unassigned with complaints of difficulty rn walking, low blood sugar. 10:13 The patient presents with feeling off balance. Onset: The symptoms/episode rn began/occurred this morning. Context: occurred at home, occurred while the patient was at rest. Modifying factors: The symptoms are alleviated by nothing, the symptoms are aggravated by nothing. Associated signs and symptoms: Pertinent positives: difficulty walking, Pertinent negatives: abdominal pain, agitation, blurred vision, chest pain, confusion, head injury, headache, near-syncope, numbness, seizure, shortness of breath, syncope, tingling, vomiting. Severity of symptoms: At their worst the symptoms were mild in the emergency department the symptoms are unchanged. The patient has not experienced similar symptoms in the past. The patient has not recently seen a physician. Pt reports at home this AM, felt "weird", felt like she was having trouble walking, denies headache/neck pain/focal weakness or numbness, no vision changes, no speech changes. EMS reports glucose in 40s, became unresponsive and went down to 30s. Gave oral glucose and not picking up glucose. Pt states took her insulin this AM and ate 2 eggs. States has had multiple episodes of hypoglycemia in past.. Historical: - Allergies: 10:26 Vancomycin; amato - Home Meds: 10:26 Anoro Ellipta 62.5-25 mcg/actuation inhalation dsdv [Active]; bupropion HCl 150 mg Oral amato Tb24 1 tab once daily [Active]; Farxiga 5 mg Oral tab [Active]; gabapentin 100 mg Oral cap twice a day [Active]; glipizide 5 mg Oral tab 1 tab 2 times per day [Active]; hydrochlorothiazide 25 mg Oral tab 1 tab once daily [Active]; Latuda 40 mg Oral tab 1 tab once daily [Active]; Levemir U-100 Insulin 100 unit/mL subcutaneous soln twice a day [Active]; levothyroxine 200 mcg/mL soln 1 mL once daily [Active]; lovastatin 40 mg Oral tab 1 tab once daily [Active]; metoprolol succinate 25 mg Oral Tb24 1 tab once daily [Active]; Novolin 70/30 InnoLet Insulin 100 unit/mL (70-30) Sub-Q inpn [Active]; Singulair 10 mg Oral tab 1 tab once daily [Active]; Trileptal 300 mg Oral tab 1 tab 2 times per day [Active]; - PMHx: 10:26 COPD; diabetes mellitus; depressive disorder; EDEMA; Hypertensive disorder; RAPID HEART amato RATE; - PSHx: 10:26 Thyroidectomy; amato - Immunization history:: Adult Immunizations up to date. - Family history:: not pertinent. - Social history:: Smoking status: Patient denies any tobacco usage or history of. - Hospitalizations: : No recent hospitalization is reported. ROS: 10:14 Constitutional: Negative for fever, chills, and weight loss, Eyes: Negative for injury, rn pain, redness, and discharge, ENT: Negative for injury, pain, and discharge, Neck: Negative for injury, pain, and swelling, Cardiovascular: Negative for chest pain, palpitations, and edema, Respiratory: Negative for shortness of breath, cough, wheezing, and pleuritic chest pain, Abdomen/GI: Negative for abdominal pain, nausea, vomiting, diarrhea, and constipation, Back: Negative for injury and pain, : Negative for injury, bleeding, discharge, and swelling, MS/Extremity: Negative for injury and deformity, Skin: Negative for injury, rash, and discoloration, Neuro: Negative for headache, weakness, numbness, tingling, and seizure. Exam: 10:14 Constitutional: This is a well developed, well nourished patient who is awake, alert, rn and in no acute distress. Head/Face: Normocephalic, atraumatic. Eyes: Periorbital areas with no swelling, redness, or edema. ENT: MMM Cardiovascular: Regular rate and rhythm. No pulse deficits. Respiratory: No increased work of breathing, no retractions or nasal flaring. Abdomen/GI: soft, non-tender Skin: Warm, dry MS/ Extremity: Pulses equal, no cyanosis. Neurovascular intact. Full, normal range of motion. Equal circumference. Neuro: Awake and alert, GCS 15, oriented to person, place, time, and situation. Cranial nerves II-XII grossly intact. Motor strength 5/5 in all extremities. Sensory grossly intact. Cerebellar exam normal. Vital Signs: 10:23 BP 119 / 50; Pulse 73; Resp 18; Temp 97.8(O); Pulse Ox 100% on R/A; Weight 99.34 kg; amato Height 5 ft. 2 in. (157.48 cm); 10:23 Body Mass Index 40.06 (99.34 kg, 157.48 cm) amato MDM: 10:04 Patient medically screened. rn 10:55 ED course: Pt completely back to baseline after glucose correction, she states does not rn want CT of head or neck, she attributes symptoms to "sugar problem", and now asking to go home. CTs canceled. . 11:11 ED course: Pt back to baseline, ambulatory with steady gait. Will PO challenge and rn monitor glucose for discharge. . 12:41 Differential diagnosis: cardiac arrhythmia, CVA, generalized weakness, hypovolemia, rn idiopathic dizziness, vertigo, hypoglycemia. Data reviewed: vital signs, nurses notes, lab test result(s), EKG, and as a result, I will discharge patient. Counseling: I had a detailed discussion with the patient and/or guardian regarding: the historical points, exam findings, and any diagnostic results supporting the discharge/admit diagnosis, lab results, the need for outpatient follow up, to return to the emergency department if symptoms worsen or persist or if there are any questions or concerns that arise at home. Response to treatment: the patient's symptoms have resolved after treatment, the patient's condition has returned to base line, the patient is now symptom free, and as a result, I will discharge patient. ED course: Walking around ER, back to baseline, begging to go because will miss her ride. Encouraged her to snack throughout day since she took insulin this AM, return precautions given and understood. . 08/08 10:06 Order name: Basic Metabolic Panel; Complete Time: 11:50 rn 08/08 10:06 Order name: CBC with Diff; Complete Time: 10:52 rn 08/08 10:06 Order name: Protime (+inr); Complete Time: 11:50 rn 08/08 10:06 Order name: Ptt, Activated; Complete Time: 11:50 rn 08/08 10:07 Order name: Troponin High Sensitivity; Complete Time: 11:50 rn 08/08 10:35 Order name: Glucose, Ancillary Testing; Complete Time: 10:52 EDMS 08/08 11:14 Order name: Glucose, Ancillary Testing; Complete Time: 11:50 EDMS 08/08 12:18 Order name: Glucose, Ancillary Testing; Complete Time: 12:37 EDMS 08/08 10:06 Order name: EKG; Complete Time: 10:07 rn 08/08 10:06 Order name: Accucheck; Complete Time: 10:30 rn 08/08 10:06 Order name: Cardiac monitoring; Complete Time: 10:07 rn 08/08 10:06 Order name: EKG - Nurse/Tech; Complete Time: 10:07 rn 08/08 10:06 Order name: IV Saline Lock; Complete Time: 10:30 rn 08/08 10:06 Order name: Labs collected and sent; Complete Time: 10:31 rn 08/08 10:06 Order name: O2 Per Protocol; Complete Time: 10:31 rn 08/08 10:06 Order name: O2 Sat Monitoring; Complete Time: 10:31 rn 08/08 10:06 Order name: Stroke Swallow Screen; Complete Time: 11:04 rn 08/08 10:46 Order name: Labs - recollect needed: recollect c7; Complete Time: 11:00 bd 08/08 11:01 Order name: Glucose Level; Complete Time: 11:04 rn 08/08 11:11 Order name: PO challenge; Complete Time: 11:17 rn Administered Medications: 10:29 Not Given (Physician Discretion): D50W 50 ml IVP once; (1 amp) amato 10:29 Drug: D50W 100 ml Route: IVP; Site: right hand; amato 10:30 Follow up: Response: No adverse reaction amato 10:30 Drug: GlucaGen (glucagon) 1 mg Route: IVP; Site: right hand; amato 10:30 Follow up: Response: No adverse reaction amato 10:30 Drug: HydroCORTISONE 100 mg Route: IVP; Site: right hand; amato 10:30 Follow up: Response: No adverse reaction amato Disposition Summary: 08/08/21 12:44 Discharge Ordered Location: Home rn Problem: new rn Symptoms: are resolved rn Condition: Stable rn Diagnosis - Hypoglycemia, unspecified rn Followup: rn - With: Private Physician - When: As needed - Reason: Recheck today's complaints, Re-evaluation by your physician Discharge Instructions: - Discharge Summary Sheet rn - Hypoglycemia rn - Blood Glucose Monitoring, Adult rn Forms: - Medication Reconciliation Form rn - Thank You Letter rn - Antibiotic morning news anchor - Prescription Opioid Use rn Signatures: Dispatcher [employer] EDMS Matsoncaio ConsueloJay Leonard MD MD rn Au-StagerLeidy RN RN amato Corrections: (The following items were deleted from the chart) 10:15 10:13 Pt reports at home this AM, . rn rn 10:57 10:07 Head Brain Wo Cont+CT.RAD.BRZ ordered. EDMS EDMS 10:57 10:07 Head Angio+CT.RAD.BRZ ordered. EDMS EDMS 10:57 10:07 Neck Angio+CT.RAD.BRZ ordered. EDMS EDMS
--- NOTE | 2021-08-08 12:45 | ER ---
Nurse's Notes [facility] Name: Sarah Parnell Age: 70 yrs Sex: Female : 1950 Arrival Date: 08/08/2021 Time: 10:04 Bed 19 Private MD: Diagnosis: Hypoglycemia, unspecified Presentation: 08/08 10:23 Chief complaint: EMS states: pt presented to ED with low blood sugar. Coronavirus amato screen: Vaccine status: Patient reports receiving the 2nd dose of the covid vaccine. Ebola Screen: Patient denies travel to an Ebola-affected area in the 21 days before illness onset. Initial Sepsis Screen: Does the patient meet any 2 criteria? No. Patient's initial sepsis screen is negative. Does the patient have a suspected source of infection? No. Patient's initial sepsis screen is negative. Risk Assessment: Do you want to hurt yourself or someone else? Patient reports no desire to harm self or others. Onset of symptoms was August 08, 2021. 10:23 Method Of Arrival: EMS: [facility] 10:23 Acuity: ALTON 3 amato Triage Assessment: 10:28 General: Appears in no apparent distress. Behavior is calm, cooperative. amato Historical: - Allergies: 10:26 Vancomycin; amato - Home Meds: 10:26 Anoro Ellipta 62.5-25 mcg/actuation inhalation dsdv [Active]; bupropion HCl 150 mg Oral amato Tb24 1 tab once daily [Active]; Farxiga 5 mg Oral tab [Active]; gabapentin 100 mg Oral cap twice a day [Active]; glipizide 5 mg Oral tab 1 tab 2 times per day [Active]; hydrochlorothiazide 25 mg Oral tab 1 tab once daily [Active]; Latuda 40 mg Oral tab 1 tab once daily [Active]; Levemir U-100 Insulin 100 unit/mL subcutaneous soln twice a day [Active]; levothyroxine 200 mcg/mL soln 1 mL once daily [Active]; lovastatin 40 mg Oral tab 1 tab once daily [Active]; metoprolol succinate 25 mg Oral Tb24 1 tab once daily [Active]; Novolin 70/30 InnoLet Insulin 100 unit/mL (70-30) Sub-Q inpn [Active]; Singulair 10 mg Oral tab 1 tab once daily [Active]; Trileptal 300 mg Oral tab 1 tab 2 times per day [Active]; - PMHx: 10:26 COPD; diabetes mellitus; depressive disorder; EDEMA; Hypertensive disorder; RAPID HEART amato RATE; - PSHx: 10:26 Thyroidectomy; amato - Immunization history:: Adult Immunizations up to date. - Family history:: not pertinent. - Social history:: Smoking status: Patient denies any tobacco usage or history of. - Hospitalizations: : No recent hospitalization is reported. Screenin: Abuse screen: Denies threats or abuse. Denies injuries from another. Nutritional amato screening: No deficits noted. Tuberculosis screening: No symptoms or risk factors identified. Fall Risk IV access (20 points). Assessment: 10: Pain: Denies pain. Neuro: Level of Consciousness is awake, alert, obeys commands, amato Oriented to person, place, time, situation. Vital Signs: 10:23 BP 119 / 50; Pulse 73; Resp 18; Temp 97.8(O); Pulse Ox 100% on R/A; Weight 99.34 kg; amato Height 5 ft. 2 in. (157.48 cm); 10: Body Mass Index 40.06 (99.34 kg, 157.48 cm) amato ED Course: 10:04 Patient arrived in ED. rn 10:04 Jay Jones MD is Attending Physician. rn 10:07 Patient has correct armband on for positive identification. Placed in gown. Bed in low mh5 position. Side rails up X 1. Warm blanket given. contact finger assembler on. Pulse ox on. NIBP on. 10:07 EKG done, by ED staff. [facility] 10:08 Adan Salas PA is PHCP. [facility] 10:23 Leidy Frias, VELIA is Primary Nurse. amato 10:26 Triage completed. amato 10:26 No provider procedures requiring assistance completed. Inserted saline lock: 20 gauge amato in right hand, using aseptic technique. 10:28 Arm band placed on. amato 12:51 IV discontinued, intact, Pressure dressing applied. amato Administered Medications: 10:29 Not Given (Physician Discretion): D50W 50 ml IVP once; (1 amp) amato 10:29 Drug: D50W 100 ml Route: IVP; Site: right hand; amato 10:30 Follow up: Response: No adverse reaction amato 10:30 Drug: GlucaGen (glucagon) 1 mg Route: IVP; Site: right hand; amato 10:30 Follow up: Response: No adverse reaction amato 10:30 Drug: HydroCORTISONE 100 mg Route: IVP; Site: right hand; amato 10:30 Follow up: Response: No adverse reaction amato Outcome: 12:44 Discharge ordered by . velia 12:51 Discharged to home amato 12:51 Condition: good 12:51 Discharge instructions given to patient. 12:52 Patient left the ED. amato Signatures: Adan Salas PA PA jmm Nieto, Roman, MD MD rn Martinez, Maria [facility] Leidy Frias RN RN ha
[2021-08-08 13:04] VITALS: BP 119/50; TEMP 97.8; O2SAT 100
--- NOTE | 2021-08-09 08:33 | EKG ---
Test Date: 2021-08-08 Test Time: 10:12:37 Classified Advertising Supervisor: FRITZ MEASUREMENT RESULTS: Intervals: Rate: 74 DC: 172 QRSD: 106 QT: 394 QTc: 437 [place]: P: 56 DC: 172 QRS: 16 T: 52 INTERPRETIVE STATEMENTS: Normal sinus rhythm Cannot rule out Anterior infarct, age undetermined Abnormal ECG Compared to ECG 03/09/2021 21:49:15 Sinus tachycardia no longer present Myocardial infarct finding still present Electronically Signed On 08-09-21 08:28:19 CDT by Tru Gonzalez
== END 2021-08-08 12:52 | disposition home or self-care (01) ==
LOC: ER 10:03
DX: E11.649 Type 2 diabetes mellitus with hypoglycemia without coma (principal); Z79.4 Long term (current) use of insulin; I10 Essential (primary) hypertension; J44.9 Chronic obstructive pulmonary disease, unspecified; F32.A Depression, unspecified; Z88.3 Allergy status to other anti-infective agents
CPT/HCPCS: 93005; 85025; 80048; 36415; 85610; 82947 ×3; 85730; 84484; 96375; 96374; 99284; J1610; J1720

== ENCOUNTER 2023-10-04 14:43 | Observation (INO) | payer OTHER ==
[2023-10-04 16:13] LABS: Absolute Basophils 0.1 K/uL (0-0.5); Absolute Eosinophils 0.3 K/uL (0-0.5); Absolute Lymphocytes (CBC) 2.6 K/uL (0.7-4.9); Absolute Monocytes 0.9 K/uL (0.1-1.3); Absolute Neutrophil 4.9 K/uL (1.8-8.0); Basophils % 1.4 % (0-1.3); Eosinophils % 3.4 % (0-4.4); Hematocrit 37.9 % (36.0-45.0); Hemoglobin 12.9 g/dL (12.0-15.0); Lymphocytes % 29.7 % (15.3-44.8); MCH 29.2 pg (27.0-35.0); MCV 85.9 fL (80-100); MPV 7.8 fL (7.6-11.3); Monocytes % 9.9 % (3.3-12.3); Neutrophils % 55.6 % (41.7-73.7); Platelets 250 thou/uL (152-406); RBC Red Blood Cell Count 4.42 M/uL (3.86-4.86); Red Cell Distribution Width 14.3 % (12.1-15.2)
--- NOTE | 2023-10-04 16:19 | RAD REPORT ---
EXAM DESCRIPTION: RAD - Chest Single View - 10/04/2023 3:33 pm CLINICAL HISTORY: Chest pain;Palpitations Chest pain. COMPARISON: Chest Pa And Lat (2 Views) dated 04/18/2021; Chest Single View dated 03/09/2021; Chest Si ngle View dated 10/10/2020; Chest Single View dated 10/05/2019 FINDINGS: Portable technique limits examination quality. The lungs are grossly clear. The heart is normal in size. No displaced fractures. IMPRESSION: No acute intrathoracic process suspected.
[2023-10-04 16:24] LABS: PT Prothrombin Time 13.9 SECONDS (9.5-12.5); Protime INR 1.27
[2023-10-04 16:34] LABS: Albumin 3.7 g/dL (3.4-5.0); Albumin/Globulin Ratio 0.9 (1.1-1.8); Anion Gap 8.7 mEq/L (5.0-15.0); Bilirubin Direct 0.2 mg/dL (0-0.2); Bilirubin Indirect, Calculated 0.4 mg/dL (0.2-0.8); Bilirubin Total 0.6 mg/dL (0.2-1.0); Globulin 4.1 g/dL (2.3-3.5); Magnesium 2.2 mg/dL (1.6-2.4); Potassium 3.7 mEq/L (3.5-5.1); Protein, Total 7.8 g/dL (6.4-8.2); Troponin High Sensitivity 42.3 pg/mL (<58.9)
--- NOTE | 2023-10-04 17:23 | ER ---
Nurse's Notes [facility] Name: Sarah Parnell Age: 72 yrs Sex: Female : 1950 Arrival Date: 10/04/2023 Time: 14:43 Bed 7 Private MD: Diagnosis: Chest pain, hyponatremia, fatigue Presentation: 10/03 15:04 Chief complaint: Patient states: CHEST PRESSURE SINCE YESTERDAY. STATES IS GONE TODAY. db WET TO PCP AND HAD ABNORMAL EKG AND WAS SENT TO ED. Coronavirus screen: Client denies travel out of the [place] in the last 14 days. At this time, the client does not indicate any symptoms associated with coronavirus-19. Ebola Screen: Patient negative for fever greater than or equal to 101.5 degrees Fahrenheit, and additional compatible Ebola Virus Disease symptoms Patient denies exposure to infectious person. Patient denies travel to an Ebola-affected area in the 21 days before illness onset. No symptoms or risks identified at this time. Initial Sepsis Screen: Does the patient meet any 2 criteria? No. Patient's initial sepsis screen is negative. Does the patient have a suspected source of infection? No. Patient's initial sepsis screen is negative. Risk Assessment: Do you want to hurt yourself or someone else? Patient reports no desire to harm self or others. Onset of symptoms was October 04, 2023. 15:04 Method Of Arrival: Wheelchair db 15:04 Acuity: ALTON 2 db Triage Assessment: 15:06 General: Appears in no apparent distress. comfortable, Behavior is calm, cooperative. db Cardiovascular: Reports chest pain. Historical: - Allergies: 15:06 Vancomycin; db - PMHx: 15:06 diabetes mellitus; EDEMA; depressive disorder; Hypertensive disorder; RAPID HEART RATE; db COPD; - PSHx: 15:06 Thyroidectomy; db - Immunization history:: Adult Immunizations unknown. - Infectious Disease History:: Denies. - Social history:: Smoking status: Patient denies any tobacco usage or history of. Screenin:00 [facility] ED Fall Risk Assessment (Adult) History of falling in the last 3 months, ko1 including since admission No falls in past 3 months (0 pts) Confusion or Disorientation No (0 pts) Intoxicated or Sedated No (0 pts) Impaired Gait No (0 pts) Mobility Assist Device Used No (0 pt) Altered Elimination No (0 pt) Score/Fall Risk Level 0 - 2 = Low Risk Oriented to surroundings, Maintained a safe environment, Educated pt \T\ family on fall prevention, incl call for assistance when getting out of bed, Assessed \T\ reinforced patient's understanding of fall precautions, Provided non-skid footwear, Hourly rounding (assess needs \T\ fall precautionary measures) done, Used ambulatory aids as needed (educated on \T\ assisted with), Used gait belt as appropriate. Abuse screen: Denies threats or abuse. Denies injuries from another. Nutritional screening: No deficits noted. Tuberculosis screening: No symptoms or risk factors identified. Assessment: 17:00 General: Appears in no apparent distress. Behavior is calm, cooperative, appropriate ko1 for age. Pain: Denies pain. Pain does not radiate. Pain began 1 day ago. Neuro: No deficits noted. Cardiovascular: No deficits noted. Respiratory: No deficits noted. GI: No deficits noted. : No deficits noted. EENT: No deficits noted. Derm: No deficits noted. Musculoskeletal: No deficits noted. 19:30 Reassessment: Patient appears in no apparent distress at this time. No changes from km8 previously documented assessment. Patient and/or family updated on plan of care and expected duration. Pain level reassessed. Patient is alert, oriented x 3, equal unlabored respirations, skin warm/dry/pink. pt eating at this time. General: Appears in no apparent distress. comfortable, Behavior is calm, cooperative, appropriate for age. Pain: Denies pain. Neuro: Level of Consciousness is awake, alert, obeys commands, Oriented to person, place, time, situation. Cardiovascular: Denies chest pain, shortness of breath, Patient's skin is warm and dry. Respiratory: Airway is patent Respiratory effort is even, unlabored, Respiratory pattern is regular, symmetrical. Derm: No signs and/or symptoms reported regarding the dermatologic system. Skin is intact, is healthy with good turgor, Skin is dry, Skin is pink, warm \T\ dry. normal, Skin temperature is warm. Musculoskeletal: No signs and/or symptoms reported regarding the musculoskeletal system. Range of motion: intact in all extremities. Vital Signs: 15:04 BP 141 / 49; Pulse 69; Resp 18; Temp 97; Pulse Ox 99% ; Weight 83.19 kg; Height 4 ft. db 11 in. ; 19:00 BP 110 / 62; Pulse 74; Resp 16; Pulse Ox 100% on R/A; km8 15:04 Body Mass Index 37.04 (83.19 kg, 149.86 cm) db ED Course: 14:49 Patient arrived in ED. mg5 14:57 Sujey Hutchinson MD is Attending Physician. sp3 15:06 Triage completed. db 15:06 Arm band placed on. db 15:16 EKG done, reviewed by Sujey Hutchinson MD. db 15:35 XRAY Chest (1 view) In Process Unspecified. EDMS 16:02 Inserted saline lock: 22 gauge in right forearm, using aseptic technique. Blood lg3 collected. 16:02 Basic Metabolic Panel Sent. lg3 16:02 CBC with Diff Sent. lg3 16:02 LFT's Sent. lg3 16:02 Magnesium Sent. lg3 16:02 NT PRO-BNP Sent. lg3 16:02 PT-INR Sent. lg3 16:02 Troponin HS Sent. lg3 16:49 Cari Xiong, RN is Primary Nurse. ko1 17:00 Patient has correct armband on for positive identification. Allergy band placed. Bed in ko1 low position. Call light in reach. Side rails up X 1. Provided Education on: call light. Client placed on continuous cardiac and pulse oximetry monitoring. NIBP monitoring applied. hall monitor on. Door closed. Noise minimized. Lights dimmed. Warm blanket given. Pillow given. Assisted to bathroom. 17:00 No provider procedures requiring assistance completed. O2 via RA. ko1 17:22 Judson Braga MD is Hospitalizing Provider. sp3 19:48 Patient admitted, IV remains in place. km8 Administered Medications: 18:40 Drug: NS 0.9% IV 1000 ml IV at 75 ml/hr once Route: IV; Rate: 75 ml/hr; Site: right ko forearm; 19:48 Follow up: IV Status: Infusion continued upon admission km8 Medication: 17:00 VIS not applicable for this client. ko1 Outcome: 17:23 Decision to Hospitalize by Provider. sp3 20:16 Admitted to Med/surg accompanied by nurse, via wheelchair, room 431, with chart, km8 20:16 Condition: stable 20:16 Instructed on the need for admit, Demonstrated understanding of instructions, 20:17 Patient left the ED. km8 Signatures: Dispatcher [employer] EDMS Dahiana Call RN RN [email or web address] Sujey Hutchinson MD MD sp3 Cari Xiong, VELIA RN sue1 Afia Rehman, RN RN Ashleigh Raymond 5 Antionette Dinh, RN RN km8
--- NOTE | 2023-10-04 17:23 | EDPHYS ---
Physician Documentation [facility] Name: Sarah Parnell Age: 72 yrs Sex: Female : 1950 Arrival Date: 10/04/2023 Time: 14:43 Bed 7 Private MD: ED Physician Sujey Hutchinson HPI: 10/03 17:17 This 72 yrs old Female presents to ER via Wheelchair with complaints of Abnormal Lab sp3 Results, Chest Pain. 17:17 72-year-old female with history of diabetes, depression, hypertension, prior sp3 arrhythmias now presents to the ED referred from PCP for chest pain and potentially abnormal EKG as read by their office. Patient states she has had chest pain off and on for the last 48 hours. She also has a history of hyponatremia in the past. She is currently pain-free but feels diffusely weak. She denies any headache, shortness of breath, neck pain, abdominal pain, vomiting, diarrhea, back pain, syncope, near syncope, travel history, prolonged immobilization, known sick contacts, fever, or any other signs or symptoms on ROS at this time.. Historical: - Allergies: 15:06 Vancomycin; db - PMHx: 15:06 diabetes mellitus; EDEMA; depressive disorder; Hypertensive disorder; RAPID HEART RATE; db COPD; - PSHx: 15:06 Thyroidectomy; db - Immunization history:: Adult Immunizations unknown. - Infectious Disease History:: Denies. - Social history:: Smoking status: Patient denies any tobacco usage or history of. ROS: 17:18 Constitutional: Negative for fever, chills, and weight loss, Eyes: Negative for injury, sp3 pain, redness, and discharge, ENT: Negative for injury, pain, and discharge, Neck: Negative for injury, pain, and swelling, Respiratory: Negative for shortness of breath, cough, wheezing, and pleuritic chest pain, Abdomen/GI: Negative for abdominal pain, nausea, vomiting, diarrhea, and constipation, Back: Negative for injury and pain, MS/Extremity: Negative for injury and deformity, Skin: Negative for injury, rash, and discoloration, Neuro: Negative for headache, weakness, numbness, tingling, and seizure, Psych: Negative for depression, anxiety, suicide ideation, homicidal ideation, and hallucinations, Allergy/Immunology: Negative for hives, rash, and allergies, Endocrine: Negative for neck swelling, polydipsia, polyuria, polyphagia, and marked weight changes, Hematologic/Lymphatic: Negative for swollen nodes, abnormal bleeding, and unusual bruising, 17:18 All other systems are negative, Exam: 17:18 Constitutional: This is a well developed, well nourished patient who is awake, alert, sp3 and in no acute distress. Head/Face: Normocephalic, atraumatic. Eyes: Pupils equal round and reactive to light, extra-ocular motions intact. Lids and lashes normal. Conjunctiva and sclera are non-icteric and not injected. Cornea within normal limits. Periorbital areas with no swelling, redness, or edema. ENT: Nares patent. No nasal discharge, no septal abnormalities noted. External auditory canals are clear. Oropharynx with no redness, swelling, or masses, exudates, or evidence of obstruction, uvula midline. Mucous membranes moist. Neck: Trachea midline, no thyromegaly or masses palpated, and no cervical lymphadenopathy. Supple, full range of motion without nuchal rigidity, or vertebral point tenderness. No Meningismus. Chest/axilla: Normal chest wall appearance and motion. Nontender with no deformity. No lesions are appreciated. Cardiovascular: Regular rate and rhythm with a normal S1 and S2. No gallops, murmurs, or rubs. Normal PMI, no JVD. No pulse deficits. Respiratory: Lungs have equal breath sounds bilaterally, clear to auscultation and percussion. No rales, rhonchi or wheezes noted. No increased work of breathing, no retractions or nasal flaring. Abdomen/GI: Soft, non-tender, with normal bowel sounds. No distension or tympany. No guarding or rebound. No evidence of tenderness throughout. Back: No spinal tenderness. No costovertebral tenderness. Full range of motion. Skin: Warm, dry with normal turgor. Normal color with no rashes, no lesions, and no evidence of cellulitis. MS/ Extremity: Pulses equal, no cyanosis. Neurovascular intact. Full, normal range of motion. Neuro: Awake and alert, GCS 15, oriented to person, place, time, and situation. Cranial nerves II-XII grossly intact. Motor strength 5/5 in all extremities. Sensory grossly intact. Cerebellar exam normal. Normal gait. Psych: Awake, alert, with orientation to person, place and time. Behavior, mood, and affect are within normal limits. 17:18 ECG was reviewed by the Attending Physician. EKG demonstrates normal sinus rhythm at 68 bpm with normal intervals, normal QRS, normal axis, nonspecific diffuse ST's ST changes without evidence of acute ischemia. Vital Signs: 15:04 BP 141 / 49; Pulse 69; Resp 18; Temp 97; Pulse Ox 99% ; Weight 83.19 kg; Height 4 ft. db 11 in. ; 19:00 BP 110 / 62; Pulse 74; Resp 16; Pulse Ox 100% on R/A; km8 15:04 Body Mass Index 37.04 (83.19 kg, 149.86 cm) db MDM: 15:11 Patient medically screened. sp3 17:19 Data reviewed: vital signs, nurses notes, old medical records, lab test result(s), EKG, sp3 radiologic studies. ED course: 72-year-old female with chest pain and generalized weakness. Differential diagnosis includes acute coronary syndrome, electrolyte abnormality, viral illness, general fatigue and dehydration, among others. Workup will include EKG, chest x-ray and laboratory values. EKG here in the ED demonstrates no significant abnormalities. Initial troponin is negative. Electrolytes are normal except for sodium of 130 which could represent the weakness. We will place in 23-hour observation for cardiology consultation, gentle IV hydration and repeat blood work in the morning.. 10/03 15:11 Order name: Basic Metabolic Panel; Complete Time: 16:35 sp3 10/03 15:11 Order name: CBC with Diff; Complete Time: 16:35 sp3 10/03 15:11 Order name: LFT's; Complete Time: 16:35 sp3 10/03 15:11 Order name: Magnesium; Complete Time: 16:35 sp3 10/03 15:11 Order name: NT PRO-BNP; Complete Time: 16:35 sp3 10/03 15:11 Order name: PT-INR; Complete Time: 16:35 sp3 10/03 15:11 Order name: Troponin HS; Complete Time: 16:35 sp3 10/03 18:31 Order name: Urinalysis w/ reflexes EDMS 10/03 18:31 Order name: CBC with Automated Diff EDMS 10/03 18:31 Order name: CBC with Automated Diff EDMS 10/03 18:31 Order name: Comprehensive Metabolic Panel [facility] 10/03 18:31 Order name: Comprehensive Metabolic Panel [facility] 10/03 18:31 Order name: Troponin High Sensitivity [facility] 10/03 18:31 Order name: Troponin High Sensitivity [facility] 10/03 18:31 Order name: Troponin High Sensitivity [facility] 10/03 18:31 Order name: Troponin High Sensitivity [facility] 10/03 15:11 Order name: XRAY Chest (1 view); Complete Time: 16:35 3 10/03 15:11 Order name: EKG; Complete Time: 15:11 3 10/03 15:11 Order name: Cardiac monitoring; Complete Time: 16:49 3 10/03 15:11 Order name: EKG - Nurse/Tech; Complete Time: 15:16 3 10/03 15:11 Order name: IV Saline Lock; Complete Time: 16:02 3 10/03 15:11 Order name: Labs collected and sent; Complete Time: 16:02 3 10/03 15:11 Order name: O2 Per Protocol; Complete Time: 16:02 3 10/03 15:11 Order name: O2 Sat Monitoring; Complete Time: 16:02 sp3 Administered Medications: 18:40 Drug: NS 0.9% IV 1000 ml IV at 75 ml/hr once Route: IV; Rate: 75 ml/hr; Site: right ko1 forearm; 19:48 Follow up: IV Status: Infusion continued upon admission km8 Disposition Summary: 10/04/23 17:23 Hospitalization Ordered Notes: Hospitalization Status: Observation sp3 Provider: Judson Braga sp3 [facility] sp3 Condition: Stable sp3 Problem: an acute exacerbation sp3 Symptoms: have worsened sp3 Bed/Room Type: Standard sp3 Room Assignment: 431(10/04/23 18:59) sp Diagnosis - Chest pain, hyponatremia, fatigue sp3 Forms: - Medication Reconciliation Form sp3 - SBAR form sp3 - Leadership Thank You Letter sp3 Signatures: Dispatcher [employer] Regi Pineda Setul, MD MD sp3 Cari Xiong RN RN ko1 Afia Rehman RN RN db Marx, Katie RN km8 Corrections: (The following items were deleted from the chart) 15:12 15:11 BASIC METABOLIC PANEL+C.LAB.BRZ ordered. EDMS EDMS 15:12 15:11 CBC+H.LAB.BRZ ordered. EDMS EDMS 15:12 15:11 HEPATIC FUNCTION+C.LAB.BRZ ordered. EDMS EDMS 15:12 15:11 MAGNESIUM+C.LAB.BRZ ordered. EDMS EDMS 15:12 15:11 PROBNP+C.LAB.BRZ ordered. EDMS EDMS 15:12 15:11 PROTIME (+INR)+COAG.LAB.BRZ ordered. EDMS EDMS 15:12 15:11 Troponin High Sensitivity+C.LAB.BRZ ordered. EDMS EDMS 18:59 17:23 sp3 sp
[2023-10-04] MEDS ORDERED: ACETAMINOPHEN 325 MG TABLET PO PRN (18:23)
[2023-10-04] MEDS ORDERED: ONDANSETRON 4 MG/2 ML VIAL IV PRN (18:23)
--- NOTE | 2023-10-04 18:23 | P.HP ---
Certification for Inpatient Patient admitted to: Observation With expected LOS: <2 Midnights Practitioner: I am a practitioner with admitting privileges, knowledge of patient current condition, hospital course, and medical plan of care. Services: Services provided to patient in accordance with Admission requirements found in Title 42 Section 412.3 of the Code of Federal Regulations Patient History Date of Service: 10/04/23 Reason for admission: CP History of Present Illness: 72 yrs old Female with past medical history of diabetes, depression, hypertensi on, rapid heart rate, came in with irregular heartbeat and chest discomfort .pain is on the right side with radiation to back. No fever or chills. 3 out of 10 in severity . States that she has having chest discomfort for the last 48 hours. No relationship with exercise or movements No fever or chills No nausea vomiting or diarrhea. Patient was assessed in the ER and is admitted for further management of ACS rule out Allergies No Known Allergies Allergy (Unverified 07/12/16 19:22) Home medications list reviewed: Yes Home Medications: OXcarbazepine [Trileptal*] 300 mg PO BID 08/21/12 Bupropion *Xl* [Wellbutrin XL*] 300 mg PO DAILY 06/16/13 Bisoprolol/Hydrochlorothiazide [Bisoprolol-Hctz 2.5-6.25 mg Tb] 1 tab PO DAILY 07/12/16 Hydroxyzine HCl 50 mg PO TIDP PRN 07/12/16 Levothyroxine Sodium 225 mcg PO DAILY 07/12/16 Metformin ER [Glucophage ER*] 500 mg PO DAILY 07/12/16 Venlafaxine HCl 75 mg PO TID 07/12/16 Hydrocodone Bit/Acetaminophen [[place] 10-325 Tablet] 1 each PO Q6H PRN #20 tablet 07/13/16 ALPRAZolam [Xanax*] 0.5 mg PO TID PRN #0 tab 07/14/16 Hydrocodone 10/APAP 325 [[place] 10/325*] 1 tab PO Q4HP PRN #0 tab 07/14/16 Insulin -Regular Human [Novolin -R*] See Protocol SQ ACHS ml 07/14/16 Ipratropium Neb [Atrovent*] 0.5 mg NEB [id number] amp 07/14/16 Levothyroxine [Synthroid*] 0.225 mg PO DAILYAC tab 07/14/16 Venlafaxine HCl [Effexor*] 75 mg PO BID tablet 07/14/16 Aspirin [Aspirin EC 81 MG] 81 mg PO DAILY 10/04/23 Calcium Carbonate [Calcium] 600 mg PO DAILY 10/04/23 Cholecalciferol (Vitd3)/Vit K2 [Vit D3-Vit K2 125-100 Mcg Sfgl] 1 each PO DAILY 10/04/23 Ibuprofen [Motrin] 600 mg PO BID 10/04/23 Insulin Detemir [Levemir Flexpen] 20 unit SQ BID 10/04/23 Krill/Om-3/Dha/Epa/Phospho/Ast [Krill Oil 500 mg Softgel] 500 mg PO BEDTIME 10/04/23 Levothyroxine Sodium [Unithroid] 150 mcg PO DAILY 10/04/23 Lisinopril [Zestril] 2.5 mg PO DAILY 10/04/23 Lurasidone HCl [Latuda] 80 mg PO BEDTIME 10/04/23 Magnesium Oxide [Magnesium] 1 tab PO BEDTIME 10/04/23 Metoprolol Succinate [Toprol Xl] 12.5 mg PO DAILY 10/04/23 Montelukast Sodium [Singulair] 10 mg PO DAILY 10/04/23 Oxcarbazepine [Trileptal] 300 mg PO BID 10/04/23 Rosuvastatin Calcium 20 mg PO DAILY 10/04/23 Topiramate 50 mg PO DAILY 10/04/23 Trazodone HCl [Desyrel] 200 mg PO BEDTIME 10/04/23 Ubidecarenone/Vit E Acet [Co Q-10 100 mg Softgel] 100 mg PO DAILY 10/04/23 Vit A/C/E/Zinc/Selenium/Copper [Vision Formula Tablet] 1 each PO BEDTIME 10/04/23 buPROPion HCL [Wellbutrin Xl] 150 mg PO 10/04/23 hydroCHLOROthiazide [Hydrochlorothiazide] 12.5 mg PO DAILY 10/04/23 - Past Medical/Surgical History Diabetic: Yes Past Medical History: Reviewed- Non-Contributory -: hypothyroidism -: depression -: bipolar -: sleep apnea -: anxiety -: hypertension -: Possible COPD Past Surgical History: Reviewed- Non-Contributory -: ovarian cyst -: abdominal surg infection -: lap band - Social History Smoking Status: Never smoker Alcohol use: No CD- Drugs: No Caffeine use: No Review of Systems 10-point ROS is otherwise unremarkable Physical Examination - Vital Signs Temperature: 97 F Blood Pressure: 141/49 Pulse: 76 Respirations: 18 Pulse Ox (%): 94 - Physical Exam General: Alert, In no apparent distress, Oriented x3, Obese HEENT: Atraumatic, Normocephalic Neck: Supple, 2+ carotid pulse no bruit Respiratory: Clear to auscultation bilaterally, Normal air movement Cardiovascular: Normal pulses, Regular rate/rhythm Capillary refill: <2 Seconds Gastrointestinal: Soft and benign, W/out hepatosplenomegaly, No masses Musculoskeletal: No clubbing, No swelling Integumentary: No rashes, No breakdown Neurological: Normal speech, Normal strength at 5/5 x4 extr, Normal reflexes 2+ Lymphatics: No axilla or inguinal lymphadenopathy - Studies Laboratory Data (last 24 hrs) 10/04/23 10/04/23 10/04/23 15:57 15:57 15:57 WBC 8.90 Hgb 12.9 Hct 37.9 Plt Count 250 PT 13.9 H INR 1.27 Sodium 130 L Potassium 3.7 BUN 16 Creatinine 0.85 Glucose 82 Magnesium 2.2 Total Bilirubin 0.6 AST 18 ALT 25 Alkaline Phosphatase 56 Assessment and Plan - Problems (Diagnosis) (1) Chest pain Current Visit: Yes Status: Acute Plan: Unstable angina Will trend cardiac enzymes Will monitor telemetry Started on aspirin and statin EKG did not show any acute changes suggestive of ischemia Patient denies any chest pain Hyponatremia Started on IV fluids Electrolytes monitor and replace accordingly Hypertension Antihypertensives titrated Continue home medications and titrate as needed Hyperlipidemia Continue statin GI/DVT prophylaxis Advanced directive full code Discharge Plan: Home Plan to discharge in: 48 Hours - Advance Directives Does patient have a Living Will: No Does patient have a Durable POA for Healthcare: Yes - Code Status/Comfort Care Code Status: Full Code Time Spent Managing Pts Care (In Minutes): 48
[2023-10-04] MEDS ORDERED: NA CHLORIDE 0.9% 1,000 ML ONE (18:37)
[2023-10-04] MEDS: NA CHLORIDE 0.9% 1,000 ML IV SCH (19:00)
[2023-10-04] MEDS: ENOXAPARIN 40 MG/0.4 ML SQ SCH (20:00)
[2023-10-04] MEDS ORDERED: ALPRAZOLAM 0.5 MG TABLET PO PRN (21:16)
[2023-10-04] MEDS ORDERED: HYDROCODONE/APAP 10/325 TAB PO PRN (21:16)
[2023-10-04] MEDS ORDERED: HYDROXYZINE HCL 50 MG PO PRN (21:16)
[2023-10-04] MEDS: TRAZODONE 50 MG TABLET PO SCH (21:39)
[2023-10-04] MEDS: IBUPROFEN 600 MG TAB PO SCH (21:40)
[2023-10-05 01:25] VITALS: O2SAT 98; BMI 37.0
[2023-10-05 04:26] LABS: Absolute Basophils 0.1 K/uL (0-0.5); Absolute Eosinophils 0.5 K/uL (0-0.5); Absolute Lymphocytes (CBC) 3.4 K/uL (0.7-4.9); Absolute Monocytes 1.1 K/uL (0.1-1.3); Absolute Neutrophil 3.8 K/uL (1.8-8.0); Basophils % 1.3 % (0-1.3); Eosinophils % 5.7 % (0-4.4); Hematocrit 33.8 % (36.0-45.0); Lymphocytes % 38.2 % (15.3-44.8); MCH 30.1 pg (27.0-35.0); MCHC 35.4 g/dL (32.0-36.0); MCV 85.1 fL (80-100); MPV 7.5 fL (7.6-11.3); Monocytes % 12.2 % (3.3-12.3); Neutrophils % 42.6 % (41.7-73.7); Nucleated Red Blood Cells % 0.1 % (0-0); Platelets 215 thou/uL (152-406); RBC Red Blood Cell Count 3.98 M/uL (3.86-4.86); Red Cell Distribution Width 14.1 % (12.1-15.2)
[2023-10-05 04:49] LABS: Albumin 3.2 g/dL (3.4-5.0); Albumin/Globulin Ratio 1.1 (1.1-1.8); Anion Gap 7.4 mEq/L (5.0-15.0); Bilirubin Total 0.4 mg/dL (0.2-1.0); Potassium 3.4 mEq/L (3.5-5.1); Protein, Total 6.2 g/dL (6.4-8.2); Troponin High Sensitivity 36.4 pg/mL (<58.9)
[2023-10-05] MEDS: POTASSIUM 25 MEQ EFFERV TAB PO ONE (05:50)
--- NOTE | 2023-10-05 08:14 | P.PN ---
Subjective Date of Service: 10/05/23 Chief Complaint: CP Admitted for chest pain, rule out AR Serial troponins negative - Physical Exam General: Alert, In no apparent distress, Oriented x3, Obese HEENT: Atraumatic, Normocephalic Neck: Supple, 2+ carotid pulse no bruit Respiratory: Clear to auscultation bilaterally, Normal air movement Cardiovascular: Normal pulses, Regular rate/rhythm Capillary refill: <2 Seconds Gastrointestinal: Soft and benign, W/out hepatosplenomegaly, No masses Musculoskeletal: No clubbing, No swelling Integumentary: No rashes, No breakdown Neurological: Normal speech, Normal strength at 5/5 x4 extr, Normal reflexes 2+ Lymphatics: No axilla or inguinal lymphadenopathy Review of Systems Per HPI Physical Examination - Vital Signs Temperature: 97.4 F Blood Pressure: 145/70 Pulse: 85 Respirations: 20 Pulse Ox (%): 97 - Studies Laboratory Data (last 24 hrs) 10/04/23 10/04/23 10/04/23 15:57 15:57 15:57 WBC 8.90 Hgb 12.9 Hct 37.9 Plt Count 250 PT 13.9 H INR 1.27 Sodium 130 L Potassium 3.7 BUN 16 Creatinine 0.85 Glucose 82 Magnesium 2.2 Total Bilirubin 0.6 AST 18 ALT 25 Alkaline Phosphatase 56 Assessment And Plan - Plan Assessment plan Unstable angina Will trend cardiac enzymes Will monitor telemetry Started on aspirin and statin EKG did not show any acute changes suggestive of ischemia Patient denies any chest pain Serial troponins negative Hyponatremia Started on IV fluids Electrolytes monitor and replace accordingly Hypertension Antihypertensives titrated Continue home medications and titrate as needed Hyperlipidemia Continue statin GI/DVT prophylaxis Advanced directive full code Time Spent Managing PTS Care (In Minutes): 35
[2023-10-05] MEDS: OXcarbazepine 150 MG TAB PO SCH (08:39)
[2023-10-05] MEDS ORDERED: BISOPROLOL PO SCH (09:00)
[2023-10-05] MEDS ORDERED: BUPROPION HCL XL 150 MG TAB PO SCH (09:00)
[2023-10-05] MEDS ORDERED: HOME MED 1 EA UNK (Levothyroxine Sodium [Levothyroxine Sodium] 150 MCG Tablet) PO SCH (09:00)
[2023-10-05] MEDS ORDERED: VENLAFAXINE HCL 75 MG TABLET PO SCH (09:00)
[2023-10-05] MEDS ORDERED: HYDROCHLOROTHIAZIDE PO SCH (09:00)
[2023-10-05] MEDS ORDERED: [UNRECOGNIZED DRUG - OTHER] PO SCH (09:00)
[2023-10-05 11:51] LABS: Anion Gap 4.2 mEq/L (5.0-15.0); Potassium 4.2 mEq/L (3.5-5.1)
--- NOTE | 2023-10-05 16:51 | EKG ---
Test Date: 2023-10-04 Test Time: 15:13:56 Family Helper: JORDEN MEASUREMENT RESULTS: Intervals: Rate: 68 IN: 172 QRSD: 88 QT: 416 QTc: 442 [place]: P: 49 IN: 172 QRS: -2 T: 56 INTERPRETIVE STATEMENTS: Normal sinus rhythm Possible Inferior infarct, age undetermined Anterior infarct, age undetermined Abnormal ECG Compared to ECG 08/08/2021 10:12:37 No significant changes Electronically Signed On 10-05-23 16:48:32 CDT by Jeb Lovelace
[2023-10-05] MEDS ORDERED: TOPIRAMATE 25 MG TAB PO SCH (21:00)
--- NOTE | 2023-10-06 14:30 | P.DS ---
Admission Date: 10/04/23 Discharge Date: 10/05/23 Disposition: ROUTINE DISCHARGE Discharge Condition: GOOD Reason for Admission: CP Brief History of Present Illness: 72 yrs old Female with past medical history of diabetes, depression, hypertension, rapid heart rate, came in with irregular heartbeat and chest discomfort .pain is on the right side with radiation to back. No fever or chills. 3 out of 10 in severity . States that she has having chest discomfort for the last 48 hours. No relationship with exercise or movements No fever or chills No nausea vomiting or diarrhea. Patient was assessed in the ER and is admitted for further management of ACS rule out - Physical Exam General: Alert, In no apparent distress, Oriented x3, Obese HEENT: Atraumatic, Normocephalic Neck: Supple, 2+ carotid pulse no bruit Respiratory: Clear to auscultation bilaterally, Normal air movement Cardiovascular: Normal pulses, Regular rate/rhythm Capillary refill: <2 Seconds Gastrointestinal: Soft and benign, W/out hepatosplenomegaly, No masses Musculoskeletal: No clubbing, No swelling Integumentary: No rashes, No breakdown Neurological: Normal speech, Normal strength at 5/5 x4 extr, Normal reflexes 2+ Lymphatics: No axilla or inguinal lymphadenopathy Hospital Course: 72 yrs old Female with past medical history of diabetes, depression, hypertension, rapid heart rate, came in with irregular heartbeat and chest discomfort .pain is on the right side with radiation to back. Serial troponins negative, will need to follow-up with primary care, cardiology after discharge Continue home medicines as previously prescribed GOAL: Clear understanding of disease process INSTRUCTIONS: Physician Discharge Instructions: -Follow-up with PCP in 1 to 2 weeks -Please call Dr. Redding at [phone] if any questions regarding hospital stay -Please call nursing station at [phone] if any nursing or medication questions -Return to the emergency room if symptoms worsen Diet: ADA, low sodium Activity: Fall precautions Vital Signs/Physical Exam: Temp Pulse Resp BP Pulse Ox 97.4 F 85 20 145/70 H 97 10/05/23 08:15 10/05/23 08:15 10/05/23 08:15 10/05/23 08:15 10/05/23 08:15 Laboratory Data at Discharge: WBC 8.90 thou/uL (4.3-10.9) 10/05/23 04:10 Hgb 12.0 g/dL (12.0-15.0) 10/05/23 04:10 Hct 33.8 % (36.0-45.0) L 10/05/23 04:10 Plt Count 215 thou/uL (152-406) 10/05/23 04:10 PT 13.9 SECONDS (9.5-12.5) H 10/04/23 15:57 INR 1.27 10/04/23 15:57 Sodium 134 mEq/L (136-145) L 10/05/23 10:53 Potassium 4.2 mEq/L (3.5-5.1) D 10/05/23 10:53 BUN 16 mg/dL (7-18) 10/05/23 10:53 Creatinine 0.87 mg/dL (0.55-1.02) 10/05/23 10:53 Glucose 87 mg/dL (74-106) 10/05/23 10:53 Magnesium 2.2 mg/dL (1.6-2.4) 10/04/23 15:57 Total Bilirubin 0.4 mg/dL (0.2-1.0) 10/05/23 04:10 AST 12 U/L (15-37) L 10/05/23 04:10 ALT 19 U/L (13-56) 10/05/23 04:10 Alkaline Phosphatase 50 U/L (45-117) 10/05/23 04:10 Home Medications: Aspirin [Aspirin EC 81 MG] 81 mg PO DAILY 10/04/23 Calcium Carbonate [Calcium] 600 mg PO DAILY 10/04/23 Cholecalciferol (Vitd3)/Vit K2 [Vit D3-Vit K2 125-100 Mcg Sfgl] 1 each PO DAILY 10/04/23 Insulin Detemir [Levemir Flexpen] 20 unit SQ BID 10/04/23 Krill/Om-3/Dha/Epa/Phospho/Ast [Krill Oil 500 mg Softgel] 500 mg PO BEDTIME 10/04/23 Levothyroxine Sodium [Unithroid] 150 mcg PO DAILY 10/04/23 Lisinopril [Zestril] 2.5 mg PO DAILY 10/04/23 Lurasidone HCl [Latuda] 80 mg PO BEDTIME 10/04/23 Magnesium Oxide [Magnesium] 1 tab PO BEDTIME 10/04/23 Metoprolol Succinate [Toprol Xl*] 12.5 mg PO DAILY 10/04/23 Montelukast Sodium [Singulair] 10 mg PO DAILY 10/04/23 Oxcarbazepine [Trileptal] 300 mg PO BID 10/04/23 Rosuvastatin Calcium 20 mg PO DAILY 10/04/23 Topiramate 50 mg PO DAILY 10/04/23 Trazodone HCl [Desyrel] 200 mg PO BEDTIME 10/04/23 Ubidecarenone/Vit E Acet [Co Q-10 100 mg Softgel] 100 mg PO DAILY 10/04/23 Vit A/C/E/Zinc/Selenium/Copper [Vision Formula Tablet] 1 each PO BEDTIME 10/04/23 hydroCHLOROthiazide [Hydrochlorothiazide] 12.5 mg PO DAILY 10/04/23 Physician Discharge Instructions: -DC IV and DC home -Follow-up with PCP in 1 to 2 weeks -Follow-up with Cardiology, Dr. Neil, as scheduled over the next 1 to 2 weeks -Please call Dr. Redding at [phone] if any questions regarding hospital stay -Please call nursing station at [phone] if any nursing or medication questions -Return to the emergency room if symptoms worsen Diet: AHA Activity: Fall precautions Followup: CHITRA NEIL [OUTSIDE PHYSICIAN] - (as scheduled) Partha Wood PA [Primary Care Provider] - 1-2 Weeks Time spent managing pt's care (in minutes): 55
[2023-10-06 14:34] VITALS: BP 156/64; TEMP 97.2
== END 2023-10-05 12:50 | disposition home or self-care (01) ==
LOC: ER 14:43 → ERHOLD 18:23 → 4TH 20:01
PROVIDERS: ADMIT Family Medicine; ATTEND Hospitalist
DX: R07.9 Chest pain, unspecified (principal); I49.9 Cardiac arrhythmia, unspecified; I10 Essential (primary) hypertension; E87.1 Hypo-osmolality and hyponatremia; E03.9 Hypothyroidism, unspecified; E11.9 Type 2 diabetes mellitus without complications; F32.A Depression, unspecified; E78.5 Hyperlipidemia, unspecified; Z79.4 Long term (current) use of insulin
CPT/HCPCS: 93005; 85025 ×2; 80048 ×2; 36415; 83735; 85610; 82947 ×3; 80076; 84484 ×4; 80053; 83880; 71045; 96360; 99285; J1650; J7030 ×2; G0378

== ENCOUNTER 2023-11-14 17:18 | Emergency (ER) | payer OTHER ==
--- NOTE | 2023-11-14 18:04 | RAD REPORT ---
EXAM DESCRIPTION: RAD - Humerus Right - 11/14/2023 5:58 pm CLINICAL HISTORY: PAIN COMPARISON: No comparisons FINDINGS/IMPRESSION: No acute fracture. No malalignment. No significant focal degenerative changes.
--- NOTE | 2023-11-14 18:18 | RAD REPORT ---
EXAM DESCRIPTION: CT - [id number] - 11/14/2023 6:08 pm CLINICAL HISTORY: Trauma, head and neck injury. fall, head injury COMPARISON: No comparisons TECHNIQUE: Axial 5 mm thick images of the head were obtained. Axial 2 mm thick images of the cervical spine were obtained with sagittal and coronal reconstruction images generated and reviewed. All CT scans are performed using dose optimization technique as appropriate and may include automated exposure control or mA/KV adjustment according to patient size. FINDINGS: CT HEAD WITHOUT CONTRAST: No acute hemorrhage, hydrocephalus or extra-axial collection is identified.No areas of brain edema or midline shift. The paranasal sinuses and mastoids are clear.The calvarium is intact. CT CERVICAL SPINE WITHOUT CONTRAST: No fracture or subluxation.No prevertebral soft tissues swelling is identified. Multilevel degenerati ve changes are present in the spine. Varying degrees of neural foraminal narrowing noted. At least mi ld central spinal stenosis is present at the C5-6 level. No high-grade central spinal stenosis identi fied. IMPRESSION: No acute intracranial or cervical spine findings.
--- NOTE | 2023-11-14 18:19 | RAD REPORT ---
EXAM DESCRIPTION: CT - CTFB CLINICAL HISTORY: fall, facial injury COMPARISON: Head C Spine Mpr Wo Con dated 11/14/2023 TECHNIQUE: Axial 2 mm thick images of the face were obtained with sagittal and coronal reconstructio n images. All CT scans are performed using dose optimization technique as appropriate and may include automated exposure control or mA/KV adjustment according to patient size. FINDINGS: No acute facial bone fracture is seen.The mandible is intact. The globes and orbital contents are grossly unremarkable.The paranasal sinuses and mastoids are clear . IMPRESSION: Negative for facial bone fracture.
--- NOTE | 2023-11-14 18:51 | EDPHYS ---
Physician Documentation [facility] Name: Sarah Parnell Age: 73 yrs Sex: Female : 1950 Arrival Date: 11/14/2023 Time: 17:18 Bed 2 Private MD: ED Physician Jay Jones HPI: 11/13 18:30 This 73 yrs old Female presents to ER via EMS with complaints of Fall Injury, Shoulder rn Pain, Elbow Injury. 18:30 Details of fall: The patient fell from an upright position, while walking. Onset: The rn symptoms/episode began/occurred just prior to arrival. Associated injuries: The patient sustained injury to the head. Severity of symptoms: At their worst the symptoms were mild, in the emergency department the symptoms are unchanged. The patient has not experienced similar symptoms in the past. Patient reports taking something outside and when walked back and tripped and hit face on the ground. Reports mild pain to the face. Also reports pain to bilateral upper arms. No LOC. Does not think she takes blood thinners. No lower extremity injury. No chest pain or rib pain. No abdominal pain. No back pain. Remembers all events.. Historical: - Allergies: 17:23 Vancomycin; ld1 - PMHx: 17:23 COPD; Hypertensive disorder; depressive disorder; RAPID HEART RATE; EDEMA; diabetes ld1 mellitus; - PSHx: 17:23 Thyroidectomy; ld1 - Immunization history:: Adult Immunizations up to date. - Infectious Disease History:: Denies. - Social history:: Smoking status: Patient denies any tobacco usage or history of. - Family history:: not pertinent. - Hospitalizations: : No recent hospitalization is reported. ROS: 18:30 Constitutional: Negative for fever, chills, and weight loss, Neck: Negative for injury, rn pain, and swelling, Cardiovascular: Negative for chest pain, palpitations, and edema, Respiratory: Negative for shortness of breath, cough, wheezing, and pleuritic chest pain, Abdomen/GI: Negative for abdominal pain, nausea, vomiting, diarrhea, and constipation, Back: Negative for injury and pain, MS/Extremity: Positive for injury and pain to bilateral upper extremities Skin: Positive for abrasions to face Neuro: Negative for headache, weakness, numbness, tingling, and seizure, Exam: 18:30 Constitutional: This is a well developed, well nourished patient who is awake, alert, rn and in no acute distress. Head/Face: Abrasion to nose and right periorbital region. No lacerations Eyes: Pupils equal round and reactive to light, extra-ocular motions intact. ENT: No intraoral injury noted Neck: No cervical spinal tenderness Chest/axilla: No rib tenderness or crepitus Cardiovascular: Regular rate and rhythm. No pulse deficits. Respiratory: No increased work of breathing, no retractions or nasal flaring. Abdomen/GI: Soft, non-tender MS/ Extremity: Pulses equal, no cyanosis. Neurovascular intact. Full, normal range of motion. Equal circumference. No focal tenderness of upper extremities. No gross deformities. Full range of motion bilateral upper extremities Neuro: Awake and alert, GCS 15, oriented to person, place, time, and situation. Cranial nerves II-XII grossly intact. Motor strength 5/5 in all extremities. Sensory grossly intact. Vital Signs: 17:20 Weight 80.74 kg; Height 5 ft. 1 in. ; Pain 7/10; ld1 17:23 BP 135 / 63; Pulse 69; Resp 18; Temp 98.1(TE); Pulse Ox 100% on R/A; ld1 17:20 Body Mass Index 33.63 (80.74 kg, 154.94 cm) ld1 17:20 Pain Scale: Adult ld1 MDM: 17:20 Patient medically screened. rn 18:50 Differential diagnosis: abrasion, closed head injury, contusion, fracture, sprain, rn strain. Data reviewed: vital signs, nurses notes, radiologic studies, CT scan, plain films, and as a result, I will discharge patient. Counseling: I had a detailed discussion with the patient and/or guardian regarding the historical points, exam findings, and any diagnostic results supporting the discharge/admit diagnosis, radiology results, the need for outpatient follow up, to return to the emergency department if symptoms worsen or persist or if there are any questions or concerns that arise at home. Special discussion: Based on the patient's history, exam and DX evaluation, there is no indication for emergent intervention or inpatient TX. It is understood by the patient/guardian that if the SXs persist or worsen they need to return immediately for re-evaluation. I discussed with the patient/guardian in detail that at this point there is no indication for admission to the hospital. It is understood, however, that if the symptoms persist or worsen the patient needs to return immediately for re-evaluation. 11/13 17:42 Order name: CT Head C Spine; Complete Time: 18:23 rn 11/13 17:42 Order name: XRAY Humerus LEFT; Complete Time: 18:23 rn 11/13 17:42 Order name: XRAY Humerus RIGHT; Complete Time: 18:23 rn 11/13 17:42 Order name: CT Facial Bones W/O Con; Complete Time: 18:23 rn 11/13 17:42 Order name: Wound Care; Complete Time: 19:02 rn Administered Medications: No medications were administered Disposition Summary: 11/14/23 18:50 Discharge Ordered Notes: Location: Home rn Problem: new rn Symptoms: have improved rn Condition: Stable rn Diagnosis - Unspecified injury of head, initial encounter rn - Contusion of left upper arm rn - Contusion of right upper arm rn Followup: rn - With: Private Physician - When: As needed - Reason: Recheck today's complaints, Re-evaluation by your physician Discharge Instructions: - Discharge Summary Sheet rn - Abrasion rn - Contusion rn - Head Injury, Adult rn Forms: - Medication Reconciliation Form rn - Antibiotic director e learning - Prescription Opioid Use rn - Patient Portal Instructions rn - Leadership Thank You Letter rn Signatures: Dispatcher [employer] Jay Golden MD MD rn Sims, Lauren, RN RN ld1
--- NOTE | 2023-11-14 18:51 | ER ---
Nurse's Notes [facility] Name: Sarah Parnell Age: 73 yrs Sex: Female : 1950 Arrival Date: 11/14/2023 Time: 17:18 Bed 2 Private MD: Diagnosis: Unspecified injury of head, initial encounter;Contusion of left upper arm;Contusion of right upper arm Presentation: 11/13 17:20 Chief complaint: EMS states: Fall - Negative LOC, not on blood thinners. C/O pain to ld1 left shoulder, right elbow, face. Coronavirus screen: At this time, the client does not indicate any symptoms associated with coronavirus-19. Ebola Screen: No symptoms or risks identified at this time. Risk Assessment: Do you want to hurt yourself or someone else? Patient reports no desire to harm self or others. Onset of symptoms was November 14, 2023. 17:20 Method Of Arrival: EMS: [facility] ld1 17:20 Acuity: ALTON 3 ld1 17:23 Initial Sepsis Screen: Does the patient meet any 2 criteria? No. Patient's initial ld1 sepsis screen is negative. Does the patient have a suspected source of infection? No. Patient's initial sepsis screen is negative. Triage Assessment: 17:23 General: Appears in no apparent distress. comfortable, Behavior is calm, cooperative, ld1 appropriate for age. Pain: Complains of pain in right elbow and anterior aspect of left shoulder and face Pain does not radiate. Pain currently is 7 out of 10 on a pain scale. Quality of pain is described as throbbing, Pain began suddenly, Is continuous. EENT: No signs and/or symptoms were reported regarding the EENT system. Neuro: Level of Consciousness is awake, alert, obeys commands, Oriented to person, place, time, situation, Appropriate for age. Cardiovascular: Capillary refill < 3 seconds Patient's skin is warm and dry. Respiratory:. Respiratory: Airway is patent Respiratory effort is even, unlabored. GI: Abdomen is round non-distended. : No signs and/or symptoms were reported regarding the genitourinary system. Derm: No signs and/or symptoms reported regarding the dermatologic system. Musculoskeletal: No signs and/or symptoms reported regarding the musculoskeletal system. Historical: - Allergies: 17:23 Vancomycin; ld1 - PMHx: 17:23 COPD; Hypertensive disorder; depressive disorder; RAPID HEART RATE; EDEMA; diabetes ld1 mellitus; - PSHx: 17:23 Thyroidectomy; ld1 - Immunization history:: Adult Immunizations up to date. - Infectious Disease History:: Denies. - Social history:: Smoking status: Patient denies any tobacco usage or history of. - Family history:: not pertinent. - Hospitalizations: : No recent hospitalization is reported. Screenin:28 [facility] ED Fall Risk Assessment (Adult) History of falling in the last 3 months, ld1 including since admission Yes- single mechanical fall (1 pt) Confusion or Disorientation No (0 pts) Intoxicated or Sedated No (0 pts) Impaired Gait No (0 pts) Mobility Assist Device Used No (0 pt) Altered Elimination No (0 pt) Score/Fall Risk Level 0 - 2 = Low Risk Oriented to surroundings, Maintained a safe environment, Educated pt \T\ family on fall prevention, incl call for assistance when getting out of bed, Assessed \T\ reinforced patient's understanding of fall precautions, Provided non-skid footwear, Hourly rounding (assess needs \T\ fall precautionary measures) done, Used ambulatory aids as needed (educated on \T\ assisted with), Used gait belt as appropriate. Abuse screen: Denies threats or abuse. Denies injuries from another. Nutritional screening: No deficits noted. Tuberculosis screening: No symptoms or risk factors identified. Assessment: 17:28 Reassessment: See triage assessment. ERP at bedside assessing patient. ld1 19:02 Reassessment: Patient appears in no apparent distress at this time. No changes from ld1 previously documented assessment. Patient and/or family updated on plan of care and expected duration. Pain level reassessed. Patient is alert, oriented x 3, equal unlabored respirations, skin warm/dry/pink. Vital Signs: 17:20 Weight 80.74 kg; Height 5 ft. 1 in. ; Pain 7/10; ld1 17:23 BP 135 / 63; Pulse 69; Resp 18; Temp 98.1(TE); Pulse Ox 100% on R/A; ld1 17:20 Body Mass Index 33.63 (80.74 kg, 154.94 cm) ld1 17:20 Pain Scale: Adult ld1 ED Course: 17:18 Patient arrived in ED. ld1 17:20 Jones, Jay, MD is Attending Physician. rn 17:23 Triage completed. ld1 17:23 Arm band placed on right wrist. ld1 17:28 Patient has correct armband on for positive identification. Placed in gown. Bed in low ld1 position. Call light in reach. Side rails up X2. vehicle monitor technician on. Pulse ox on. NIBP on. Door closed. Noise minimized. Warm blanket given. 17:59 XRAY Humerus LEFT In Process Unspecified. EDMS 17:59 XRAY Humerus RIGHT In Process Unspecified. EDMS 18:06 Umu Squires, RN is Primary Nurse. ld1 18:08 CT Head C Spine In Process Unspecified. EDMS 18:08 CT Facial Bones W/O Con In Process Unspecified. EDMS 19:02 No provider procedures requiring assistance completed. Patient did not have IV access ld1 during this emergency room visit. Administered Medications: No medications were administered Medication: 19:03 VIS not applicable for this client. ld1 Outcome: 18:50 Discharge ordered by . rn 19:02 Discharged to home ambulatory, ld1 19:02 Condition: stable 19:02 Discharge instructions given to patient, Instructed on discharge instructions, follow up and referral plans. Demonstrated understanding of instructions, follow-up care, 19:03 Patient left the ED. ld1 Signatures: Dispatcher [employer] Jay Golden MD MD rn Sims, Lauren, VELIA RN ld1
[2023-11-14 23:56] VITALS: BP 135/63; TEMP 98.1; O2SAT 100
== END 2023-11-14 19:03 | disposition home or self-care (01) ==
LOC: ER 17:18
DX: S09.90XA Unspecified injury of head, initial encounter (principal); S40.022A Contusion of left upper arm, initial encounter; S40.021A Contusion of right upper arm, initial encounter; W01.0XXA Fall on same level from slipping, tripping and stumbling without subsequent striking against object, initial encounter
CPT/HCPCS: 70450; 70486; 72125; 76377; 99284

== ENCOUNTER 2024-07-15 13:24 | Emergency (ER) | payer OTHER ==
--- NOTE | 2024-07-15 14:48 | RAD REPORT ---
EXAM: CT brain without contrast HISTORY: DIZZINESS COMPARISON: None TECHNIQUE: Multiple contiguous axial images were obtained and a CT of the brain without contrast. Sag ittal and coronal reformats were performed. One or more of the following dose reduction techniques were used: Automated exposure control, adjust ment of the mA and/or kV according to patient size, and/or iterative reconstruction. FINDINGS: No evidence of hydrocephalus, intracranial hemorrhage, or extra-axial fluid collection. Mild brain atrophy with mild periventricular and deep white matter chronic microvascular ischemic ch anges present. No evidence of midline shift or areas of brain edema. The calvarium is intact. The visualized paranasal sinuses and mastoid air cells are essentially clear . IMPRESSION: No evidence of acute intracranial abnormality. EXAM: CT of the cervical spine without contrast HISTORY: Neck pain, injury DIZZINESS TECHNIQUE: Multiple contiguous axial images were obtained in a CT of the cervical spine without contr ast. Sagittal and coronal reformats were performed. FINDINGS: The vertebral bodies demonstrate normal height and alignment. No evidence of acute fracture or subluxation.. Moderate multilevel degenerative changes. No prevertebral soft tissue swelling is seen. The posterior facets are well aligned. Normal alignment of the skull base with the cervical spine is seen. Bilateral carotid atherosclerosis. The lung apices are unremarkable. IMPRESSION: No evidence of acute osseous abnormality of the cervical spine. Moderate bilateral carotid atherosclerosis.
--- NOTE | 2024-07-15 14:49 | RAD REPORT ---
EXAMINATION: ONE VIEW CHEST XR CLINICAL INDICATION: PAIN TECHNIQUE: Frontal chest projection is submitted. Examination is limited by patient positioning and t echnique. COMPARISON: 10/04/2023 FINDINGS: The lungs are well inflated and clear. The heart is normal in size. No displaced fractures identified . IMPRESSION: No acute intrathoracic abnormalities.
[2024-07-15 15:46] LABS: ALT/SGPT 23 U/L (13-56); Albumin 3.5 g/dL (3.4-5.0); Alkaline Phosphatase 57 U/L (45-117); Anion Gap 9.2 mEq/L (5.0-15.0); BUN Blood Urea Nitrogen 18 mg/dL (7-18); Bicarbonate 25 mEq/L (21-32); Bilirubin Total 0.3 mg/dL (0.2-1.0); Creatine Phosphokinase 95 U/L (26-192); Globulin 3.5 g/dL (2.3-3.5); Glomerular Filtration Rate 62 ml/min (=/>90); Glucose Level 76 mg/dL (74-106); Sodium Level 130 mEq/L (136-145); Troponin High Sensitivity 43.4 pg/mL (<58.9)
[2024-07-15 15:47] LABS: AST/SGOT 23 U/L (15-37); Bilirubin Direct < 0.2 mg/dL (0-0.2); Bilirubin Indirect, Calculated 0.1 mg/dL (0.2-0.8); Magnesium 2.2 mg/dL (1.6-2.4); Potassium 4.2 mEq/L (3.5-5.1)
[2024-07-15 15:48] LABS: PT Prothrombin Time 12.5 SECONDS (10-13.0); PTT, Activated Partial Thromb 33.2 SECONDS (27.2-37.4); Protime INR 1.1
[2024-07-15 15:56] LABS: Absolute Eosinophils 0.5 K/uL (0-0.5); Absolute Lymphocytes (CBC) 1.7 K/uL (0.7-4.9); Absolute Monocytes 0.7 K/uL (0.1-1.3); Absolute Neutrophil 4.5 K/uL (1.8-8.0); Basophils % 0.4 % (0-1.3); Eosinophils % 6.5 % (0-4.4); Hematocrit 36.1 % (36.0-45.0); Hemoglobin 12.6 g/dL (12.0-15.0); Lymphocytes % 23.4 % (15.3-44.8); MCH 30.5 pg (27.0-35.0); MCV 87.3 fL (80-100); MPV 8.6 fL (7.6-11.3); Monocytes % 9.5 % (3.3-12.3); Neutrophils % 60.2 % (41.7-73.7); Nucleated Red Blood Cells % 0.3 % (0-0); Platelets 175 thou/uL (152-406); RBC Red Blood Cell Count 4.13 M/uL (3.86-4.86); Red Cell Distribution Width 13.8 % (12.1-15.2)
[2024-07-15] MEDS ORDERED: TDAP (DIPHTH,PERTUSS(ACELL),TET VAC) 0.5 ML VIAL IMVAC ONE (15:57)
[2024-07-15] MEDS ORDERED: NA CHLORIDE 0.9% 500 ML ONE (16:12)
[2024-07-15 16:18] LABS: Specific Gravity 1.015 (1.005-1.030); Sqamous Epithelial <5 /HPF (None Seen); Urine Bacteria None Seen /HPF (<20); Urine Bilirubin NEGATIVE (Negative); Urine Blood Negative (Negative); Urine Clarity Extremely Turbid (Clear); Urine Color Yellow (Yellow); Urine Crystals Unidentified Few /HPF (None Seen); Urine Culture Reflex Order NOT NEEDED; Urine Glucose NEGATIVE (Negative); Urine Ketones NEGATIVE (Negative); Urine Microscopic Reflex YN ORDER UMIC; Urine Mucus Slight /HPF (None Seen); Urine Nitrite NEGATIVE (Negative); Urine Protein NEGATIVE (Negative); Urine RBC <5 /HPF (None Seen); Urine Urobilinogen Normal (Normal); Urine WBC Clump Rare /HPF (None Seen); Urine Yeast (Budding) Many /HPF (None Seen); Urine pH 7.5 (5.0-7.0)
--- NOTE | 2024-07-15 17:49 | ER ---
Nurse's Notes [facility] Name: Sarah Parnell Age: 73 yrs Sex: Female : 1950 Arrival Date: 07/15/2024 Time: 13:24 Bed 23 Private MD: Diagnosis: Dizziness and giddiness Presentation: 07/15 13:46 Chief complaint: Patient states: she fell in the bus going to group therapy. family ap3 reports the patient has been unsteady since about 1230 today. patient reports that she injured her right knee during the fall in the bus today. Coronavirus screen: At this time, the client does not indicate any symptoms associated with coronavirus-19. Ebola Screen: No symptoms or risks identified at this time. Risk Assessment: Do you want to hurt yourself or someone else? Patient reports no desire to harm self or others. Onset of symptoms was July 15, 2024 at 12:30. 13:46 Method Of Arrival: Wheelchair ap3 13:51 Acuity: ALTON 2 ap3 Triage Assessment: 13:49 The onset of the patients symptoms was July 15, 2024 at 12:30. General: Appears in no ap3 apparent distress. Behavior is calm, cooperative, appropriate for age. Pain: Complains of pain in right knee. Neuro: Reports being unsteady. Cardiovascular: Patient's skin is warm and dry. Respiratory: Airway is patent Respiratory effort is even, unlabored, Respiratory pattern is regular, symmetrical. Historical: - Allergies: 13:49 Vancomycin; ap3 - PMHx: 13:49 COPD; depressive disorder; diabetes mellitus; EDEMA; Hypertensive disorder; RAPID HEART ap3 RATE; - PSHx: 13:49 Thyroidectomy; ap3 - Immunization history:: Client reports receiving the 2nd dose of the Covid vaccine. - Infectious Disease History:: Denies. - Social history:: Smoking status: Patient denies any tobacco usage or history of. Screenin:50 [facility] ED Fall Risk Assessment (Adult) History of falling in the last 3 months, ap3 including since admission Yes- fall prone (multiple falls) (3 pts) Confusion or Disorientation No (0 pts) Intoxicated or Sedated No (0 pts) Impaired Gait Yes (1 pt) Mobility Assist Device Used Yes (1 pt) Altered Elimination No (0 pt) Score/Fall Risk Level 3 or more points = High Risk Oriented to surroundings, Maintained a safe environment, Educated pt \T\ family on fall prevention, incl call for assistance when getting out of bed, Assessed \T\ reinforced patient's understanding of fall precautions, Provided non-skid footwear, Hourly rounding (assess needs \T\ fall precautionary measures) done, Used ambulatory aids as needed (educated on \T\ assisted with), Apply high fall risk patient identification: yellow non skid footwear/ fall signage, Remained with patient while ambulating, Utilized family, sitter, or virtual warehouse pricing and inventory clerk as indicated. Abuse screen: Denies threats or abuse. Nutritional screening: No deficits noted. Tuberculosis screening: No symptoms or risk factors identified. Assessment: 15:00 General: Appears in no apparent distress. comfortable, Behavior is calm, cooperative, jb4 appropriate for age. Pain: Complains of pain in right wang Pain does not radiate. Pain currently is 3 out of 10 on a pain scale. Neuro: Level of Consciousness is awake, alert, obeys commands, Oriented to person, place, time, situation. Cardiovascular: Patient's skin is warm and dry. Respiratory: Airway is patent Respiratory effort is even, unlabored, Respiratory pattern is regular, symmetrical. Derm: Skin is pink, warm \T\ dry. Musculoskeletal: Circulation, motion, and sensation intact. Range of motion: intact in all extremities. Injury Description: skin tear noted to the right lower extremity. 16:00 Reassessment: Patient appears in no apparent distress at this time. Patient and/or jb4 family updated on plan of care and expected duration. Pain level reassessed. Patient is alert, oriented x 3, equal unlabored respirations, skin warm/dry/pink. 17:00 Reassessment: Patient appears in no apparent distress at this time. Patient and/or jb4 family updated on plan of care and expected duration. Pain level reassessed. Patient is alert, oriented x 3, equal unlabored respirations, skin warm/dry/pink. Vital Signs: 13:46 BP 102 / 49; Pulse 73; Resp 16; Temp 98.1; Pulse Ox 100% ; ap3 15:46 BP 156 / 69 LA Supine (auto/reg); Pulse 69; Resp 15; Pulse Ox 100% on R/A; jb4 15:47 BP 154 / 80 LA Sitting (auto/reg); Pulse 67; Resp 16; Pulse Ox 100% on R/A; jb4 15:48 BP 150 / 72 LA Standing (auto/reg); Pulse 72; Resp 16; Pulse Ox 100% on R/A; jb4 15:48 Pt became dizzy with standing, provider notified. jb4 ED Course: 13:29 Patient arrived in ED. mr 13:50 Arm band placed on right wrist. ap3 13:51 Triage completed. ap3 13:54 Zhane Munzi FNP-C is PHCP. kb 13:54 Jay Jones MD is Attending Physician. kb 14:26 CT Head C Spine In Process Unspecified. EDMS 14:33 Chest Single View XRAY In Process Unspecified. EDMS 15:00 Patient has correct armband on for positive identification. Bed in low position. Call jb4 light in reach. Side rails up X 1. Provided Education on: plan of care. Client placed on continuous cardiac and pulse oximetry monitoring. NIBP monitoring applied. night monitor on. Pulse ox on. 15:00 No provider procedures requiring assistance completed. jb4 15:15 Missed attempt(s): 20 gauge in right forearm. 22 gauge in right hand. Bleeding jb4 controlled, band aid applied, catheter tip intact. 15:15 Magnesium Sent. jb4 15:15 Hepatic Function Sent. jb4 15:15 CBC with Diff Sent. jb4 15:15 Basic Metabolic Panel Sent. jb4 15:15 Troponin High Sensitivity Sent. jb4 15:32 Inserted saline lock: 22 gauge in right antecubital area, using aseptic technique. jb4 Blood collected. started by VELIA Garcia. 17:28 Stephen Shaw, VLEIA is Primary Nurse. jb4 17:29 Troponin High Sensitivity Sent. jb4 17:59 IV discontinued, intact, bleeding controlled, No redness/swelling at site. Pressure jb4 dressing applied. Administered Medications: 16:14 Drug: Boostrix Tdap IM 0.5 ml IM once; as a single dose Route: IM; Site: right deltoid; jb4 16:45 Follow up: Response: No adverse reaction jb4 16:14 Drug: NS 0.9% IV 500 ml 500 ml IV at 1 bolus once; to be given as a bolus over 30 jb4 minutes Volume: 500 ml; Route: IV; Rate: 1 bolus; Site: right forearm; 16:45 Follow up: Response: No adverse reaction; Marked relief of symptoms; IV Status: jb4 Completed infusion; IV Intake: 500ml Medication: 17:31 VIS not applicable for this client. jb4 Intake: 16:45 IV: 500ml; Total: 500ml. jb4 Outcome: 17:48 Discharge ordered by MD. hand 17:59 Discharged to home via wheelchair, with friend, sigrid 17:59 Condition: stable 17:59 Discharge instructions given to patient, Instructed on discharge instructions, follow up and referral plans. Demonstrated understanding of instructions, follow-up care, 17:59 Patient left the ED. jb4 Signatures: Dispatcher [employer] EDMS Zhane Muniz, CHIEF INFORMATION SECURITY OFFICER-C CHIEF INFORMATION SECURITY OFFICER-Ckb Debbie Shukla, Reg Reg Stephen Marsh, RN RN jb4 Colette Garay RN RN ap3
--- NOTE | 2024-07-15 17:49 | EDPHYS ---
Physician Documentation [facility] Name: Sarah Parnell Age: 73 yrs Sex: Female : 1950 Arrival Date: 07/15/2024 Time: 13:24 Bed 23 Private MD: ED Physician Jay Jones HPI: 07/15 13:58 This 73 yrs old Female presents to ER via Wheelchair with complaints of Dizziness, kb Weakness. 13:58 Pt is a 73 year old female who presents for dizziness that started this morning. States kb she was "groggy" when she woke up this morning. States she walked around the block like normal, but was unsteady/dizzy. Went to get into a van and fell up the step, causing skin tear to right wang at 1230. States she has been unsteady since then, but gets better with rest. Pt states she feels normal while sitting in wheelchair at this time. STates symptoms return if she starts walking around. . Historical: - Allergies: 13:49 Vancomycin; ap3 - PMHx: 13:49 COPD; depressive disorder; diabetes mellitus; EDEMA; Hypertensive disorder; RAPID HEART ap3 RATE; - PSHx: 13:49 Thyroidectomy; ap3 - Immunization history:: Client reports receiving the 2nd dose of the Covid vaccine. - Infectious Disease History:: Denies. - Social history:: Smoking status: Patient denies any tobacco usage or history of. ROS: 14:03 Constitutional: As per HPI kb Exam: 14:03 Constitutional: This is a well developed, well nourished patient who is awake, alert, kb and in no acute distress. Head/Face: Normocephalic, atraumatic. Eyes: Pupils equal round and reactive to light, extra-ocular motions intact. Lids and lashes normal. Conjunctiva and sclera are non-icteric and not injected. Cornea within normal limits. Periorbital areas with no swelling, redness, or edema. ENT: Moist Mucous membranes Cardiovascular: Regular rate Respiratory: Respirations even and unlabored. No increased work of breathing. Talking in full sentences MS/ Extremity: Pulses equal, no cyanosis. Neurovascular intact. Full, normal range of motion. Neuro: Awake and alert, GCS 15, oriented to person, place, time, and situation. 14:03 Skin: skin tear to right wang. 16:06 ECG was reviewed by the Attending Physician. Vital Signs: 13:46 BP 102 / 49; Pulse 73; Resp 16; Temp 98.1; Pulse Ox 100% ; ap3 15:46 BP 156 / 69 LA Supine (auto/reg); Pulse 69; Resp 15; Pulse Ox 100% on R/A; jb4 15:47 BP 154 / 80 LA Sitting (auto/reg); Pulse 67; Resp 16; Pulse Ox 100% on R/A; jb4 15:48 BP 150 / 72 LA Standing (auto/reg); Pulse 72; Resp 16; Pulse Ox 100% on R/A; jb4 15:48 Pt became dizzy with standing, provider notified. jb4 MDM: 13:54 Medical Screening Exam initiated kb 14:03 Data reviewed: vital signs, nurses notes. Historians other than the Patient: Friend: yazan friend. 17:49 Differential diagnosis: cardiac arrhythmia, CVA, generalized weakness, idiopathic kb dizziness, near-syncope, TIA, vertigo. Consideration of Admission/Observation Escalation of care including admission/observation considered. admission considered but pt states she is feeling better and would like to go home. . Counseling: I had a detailed discussion with the patient and/or guardian regarding the historical points, exam findings, and any diagnostic results supporting the discharge/admit diagnosis, lab results, radiology results, the need for outpatient follow up, a family practitioner, to return to the emergency department if symptoms worsen or persist or if there are any questions or concerns that arise at home. 07/15 13:57 Order name: Basic Metabolic Panel; Complete Time: 15:48 kb 07/15 13:57 Order name: CBC with Diff; Complete Time: 16:06 kb 07/15 13:57 Order name: Hepatic Function; Complete Time: 15:48 kb 07/15 13:57 Order name: Magnesium; Complete Time: 15:48 kb 07/15 13:57 Order name: Protime (+inr); Complete Time: 15:48 kb 07/15 13:57 Order name: Ptt, Activated; Complete Time: 15:48 kb 07/15 13:57 Order name: Troponin High Sensitivity; Complete Time: 15:48 kb 07/15 13:57 Order name: Urinalysis w/ reflexes; Complete Time: 16:21 kb 03/11 13:57 Order name: CPK; Complete Time: 15:48 kb 07/15 16:30 Order name: Troponin High Sensitivity; Complete Time: 17:47 kb 07/15 13:57 Order name: CT Head C Spine; Complete Time: 14:50 kb 07/15 13:57 Order name: Chest Single View XRAY; Complete Time: 14:50 kb 07/15 13:57 Order name: Cardiac monitoring; Complete Time: 14:55 kb 07/15 13:57 Order name: EKG - Nurse/Tech; Complete Time: 16:14 kb 07/15 13:57 Order name: IV Saline Lock; Complete Time: 16:14 kb 07/15 13:57 Order name: Labs collected and sent; Complete Time: 16:14 kb 07/15 13:57 Order name: NPO; Complete Time: 16:14 kb 07/15 13:57 Order name: O2 Per Protocol; Complete Time: 14:55 kb 07/15 13:57 Order name: O2 Sat Monitoring; Complete Time: 14:55 kb 07/15 14:02 Order name: Orthostatics; Complete Time: 16:14 kb 07/15 14:04 Order name: Wound Care; Complete Time: 17:29 kb EC:06 Rate is 72 beats/min. Rhythm is regular. QRS [place] is Normal. [place] interval is normal at kb 186 msec. QRS interval is normal at 104 msec. QT interval is normal at 438 msec. Administered Medications: 16:14 Drug: Boostrix Tdap IM 0.5 ml IM once; as a single dose Route: IM; Site: right deltoid; jb4 16:45 Follow up: Response: No adverse reaction jb4 16:14 Drug: NS 0.9% IV 500 ml 500 ml IV at 1 bolus once; to be given as a bolus over 30 jb4 minutes Volume: 500 ml; Route: IV; Rate: 1 bolus; Site: right forearm; 16:45 Follow up: Response: No adverse reaction; Marked relief of symptoms; IV Status: jb4 Completed infusion; IV Intake: 500ml Disposition: 18:10 Co-signature as Attending Physician, Jay Jones MD I reviewed the patient's care rn provided by the Advanced Practice Provider and agree with the diagnosis and treatment plan. Disposition Summary: 07/15/24 17:48 Discharge Ordered Notes: Location: Home kb Condition: Stable kb Diagnosis - Dizziness and giddiness kb Followup: kb - With: Emergency Department - When: As needed - Reason: Worsening of condition Followup: kb - With: Private Physician - When: 2 - 3 days - Reason: Recheck today's complaints, Continuance of care, Re-evaluation by your physician Discharge Instructions: - Discharge Summary Sheet kb - Near-Syncope, [id number] kb - Vertigo, Auro-cf-Acdu kb - Dehydration, Adult, [id number]-Maqv kb - Dizziness, [id number]-Mvcq kb Forms: - Medication Reconciliation Form kb - Antibiotic Education kb - Prescription Opioid Use kb - Patient Portal Instructions kb - Leadership Thank You Letter kb Signatures: Dispatcher [employer] EDMS Zhane Muniz, VARNISH REMOVER-C VARNISH REMOVER-Ckb Jay Jones MD MD rn Bryson, James, RN RN jb4 Colette Garay RN RN ap3 Corrections: (The following items were deleted from the chart) 13:58 13:58 BASIC METABOLIC PANEL+C.LAB.BRZ ordered. EDIA EDMS 13:58 13:58 CBC+H.LAB.BRZ ordered. EDMS EDMS 13:58 13:58 HEPATIC FUNCTION+C.LAB.BRZ ordered. EDMS EDMS 13:58 13:58 MAGNESIUM+C.LAB.BRZ ordered. EDMS EDMS 13:58 13:58 PROTIME (+INR)+COAG.LAB.BRZ ordered. EDMS EDMS 13:58 13:58 PTT, ACTIVATED+COAG.LAB.BRZ ordered. EDIA EDMS 13:58 13:58 Troponin High Sensitivity+C.LAB.BRZ ordered. EDIA EDMS 13:58 13:58 Urinalysis+U.LAB.BRZ ordered. EDMS EDMS 13:58 13:58 CREATINE PHOSPHOKINASE+C.LAB.BRZ ordered. EDIA EDMS 13:58 13:58 Head C Spine MPR Wo Con+CT.RAD.BRZ ordered. EDMS EDMS 13:58 13:58 Chest Single View+RAD.RAD.BRZ ordered. EDIA EDMS 14:04 14:03 Constitutional: This is a well developed, well nourished patient who is awake, kb alert, and in no acute distress. Head/Face: Normocephalic, atraumatic. Eyes: Pupils equal round and reactive to light, extra-ocular motions intact. Lids and lashes normal. Conjunctiva and sclera are non-icteric and not injected. Cornea within normal limits. Periorbital areas with no swelling, redness, or edema. ENT: Moist Mucous membranes Cardiovascular: Regular rate Respiratory: Respirations even and unlabored. No increased work of breathing. Talking in full sentences Skin: Warm, dry with normal turgor. Normal color. MS/ Extremity: Pulses equal, no cyanosis. Neurovascular intact. Full, normal range of motion. Neuro: Awake and alert, GCS 15, oriented to person, place, time, and situation. kb
[2024-07-15 18:03] VITALS: TEMP 98.1; O2SAT 100
[2024-07-15 18:07] VITALS: BP 150/72
--- NOTE | 2024-07-18 14:51 | EKG ---
Test Date: 2024-07-15 Test Time: 15:44:23 Research Nurse Practitioner: KILEY MEASUREMENT RESULTS: Intervals: Rate: 72 WA: 186 QRSD: 104 QT: 400 QTc: 438 [place]: P: 49 WA: 186 QRS: 1 T: 55 INTERPRETIVE STATEMENTS: Normal sinus rhythm Cannot rule out Anterior infarct, age undetermined Abnormal ECG Compared to ECG 03/18/2024 19:01:54 No significant changes Electronically Signed On 07-18-24 14:43:42 CDT by Lavell Bone
== END 2024-07-15 17:59 | disposition home or self-care (01) ==
LOC: ER 13:24
DX: R42 Dizziness and giddiness (principal); S81.811A Laceration without foreign body, right lower leg, initial encounter; R53.1 Weakness; I10 Essential (primary) hypertension; E11.9 Type 2 diabetes mellitus without complications
CPT/HCPCS: 93005; 85025; 81001; 80048; 36415; 83735; 82550; 85610; 80076; 85730; 84484 ×2; 70450; 72125; 71045; 96360; 96372; 99285; J7040

== ENCOUNTER 2024-08-01 21:41 | Inpatient (IN) | payer OTHER ==
--- NOTE | 2024-08-01 22:56 | RAD REPORT ---
EXAMINATION: Head C Spine Mpr Wo Con CLINICAL INDICATION: Female, 73 years old. fall TECHNIQUE: Axial CT images from the skull base to the vertex without intravenous contrast. Axial CT i mages through the cervical spine were obtained without intravenous contrast. Sagittal and coronal reformatted images were created from the data set. Coronal and sagittal reformatted images were creat ed from the data set. One or more of the following dose reduction techniques were used: Automated exposure control, adjustment of the mA and/or kV according to patient size, and/or iterative reconstr uction. Unless otherwise specified, incidental findings do not require dedicated imaging follow-up. [id number]. COMPARISON: No prior exam. FINDINGS: Head: INTRACRANIAL: No acute intracranial hemorrhage. No hydrocephalus. No mass effect or midline shift. Mi ld chronic small vessel ischemic changes.Mild cerebral atrophy. VASCULATURE: No visualized abnormalities in the arteries or dural venous sinuses. SCALP/SKULL: No calvarial fracture identified. No acute soft tissue abnormality. SINUSES: The visualized paranasal sinuses are mostly clear. No significant mastoid fluid. Cervical spine: ALIGNMENT: Trace retrolisthesis of C2 on C3. 2 mm retrolisthesis of C3 on C4. Trace retrolisthesis of C5 on C6. BONE: Vertebral body heights are maintained. No aggressive osseous lesions. DEGENERATIVE: Multilevel cervical spondylosis with evidence of bilateral neural foraminal narrowing t hat is severe levels bilaterally. Suspect at least moderate stenosis at C3-4 and possibly an C5-6 SOFT TISSUE: No significant abnormalities in the soft tissue of the neck. The visualized lung apices are clear. IMPRESSION: No acute intracranial abnormality. No acute fracture or traumatic malalignment of the cervical spine.
--- NOTE | 2024-08-01 23:07 | RAD REPORT ---
EXAM: Chest Abd Pelvis Wo Con CLINICAL INDICATION: Female, 73 years old TRAUMA; FALL TECHNIQUE: CT chest, abdomen and pelvis was performed, without IV contrast, as per department protoco l. Axial, sagittal and coronal reconstructions were obtained. One or more of the following dose reduction techniques were used: Automated exposure control, adjustment of the mA and/or kV according to the patient size, and/or iterative reconstruction. Unless otherwise specified, incidental findings do not require dedicated imaging follow-up. [id number]. COMPARISON: 03/18/2024 FINDINGS: The lack of intravenous contrast limits the sensitivity of this exam for evaluation of solid visceral organs, vascular structures, and retroperitoneum. ---THORAX--- LOWER NECK AND CHEST WALL: Visualized thyroid gland and soft tissues are normal. LUNGS AND AIRWAYS: Airways are clear. No evidence of airspace or interstitial process.Motion artifact limits evaluation for pulmonary nodule detection. PLEURA: No pleural effusion. No pneumothorax. MEDIASTINUM AND LYMPH NODES: No mediastinal mass or fluid collection. Normal size mediastinal, hilar, and axillary lymph nodes. Moderate distal esophageal thickening which could reflect esophagitis. THORACIC AORTA: No thoracic aortic aneurysm. Atherosclerotic changes are present. PULMONARY ARTERIES: Caliber is within normal limits. HEART: Mild cardiomegaly. Moderate coronary artery calcifications.No significant pericardial effusion . Aortic valve and mitral annular calcifications. ---ABDOMEN/PELVIS--- UPPER GI: Status post gastric banding. LIVER: No significant focal abnormality. GALLBLADDER/BILE DUCTS: No biliary ductal dilatation.? PANCREAS: No mass, ductal dilation, or chasidy-pancreatic fluid. SPLEEN: Unremarkable. ADRENALS: No adrenal masses. KIDNEYS AND URETERS: No hydronephrosis.Limited evaluation for renal lesions in the absence of IV cont rast.Nonobstructing renal calculi.No ureteral calculi. ABDOMINAL AORTA AND OTHER VESSELS: Moderate atherosclerotic changes without aortic aneurysm. PERITONEUM: No abnormal free fluid. No free air. LYMPH NODES: No pathologic lymphadenopathy. ABDOMINAL WALL: Unremarkable SMALL BOWEL/COLON: Small bowel has normal course and caliber. No colonic wall thickening or pericolon ic inflammatory changes.Nonvisualized appendix but no secondary signs of acute appendicitis. Mild diverticulosis without diverticulitis. Moderate formed stool burden. URINARY BLADDER: Underdistended but grossly unremarkable. REPRODUCTIVE ORGANS: No pathologic process. ---COMBINED--- MUSCULOSKELETAL: Nondisplaced fracture at the right anterior 4th-8th ribs. Mildly displaced fracture at the right posterior eighth rib fracture. There is approximately one half shaft width of displacement. Degenerative changes in the spine. Grade 1 anterolisthesis of L4 on L5. ADDITIONAL FINDINGS: None. IMPRESSION: Multiple right-sided rib fractures including the right fourth through eighth ribs, most of which are nondisplaced. The right eighth rib fracture is segmental and does have some mild displacement posteriorly. No pneumothorax. No evidence of significant trauma.
--- NOTE | 2024-08-02 00:59 | ER ---
Nurse's Notes [facility] Name: Sarah Parnell Age: 73 yrs Sex: Female : 1950 Arrival Date: 08/01/2024 Time: 21:41 Bed 7 Private MD: Diagnosis: Fall on same level from slipping, tripping and stumbling with subsequent striking against object;Multiple fractures of ribs, right side Presentation: 08/01 22:06 Chief complaint: Patient states: I slipped and fell on wet concrete, i did hit my head bm8 but didn't pass out, I have some back pain as well. Coronavirus screen: At this time, the client does not indicate any symptoms associated with coronavirus-19. Ebola Screen: Patient negative for fever greater than or equal to 101.5 degrees Fahrenheit, and additional compatible Ebola Virus Disease symptoms Patient denies exposure to infectious person. Patient denies travel to an Ebola-affected area in the 21 days before illness onset. No symptoms or risks identified at this time. Initial Sepsis Screen: Does the patient meet any 2 criteria? No. Patient's initial sepsis screen is negative. Does the patient have a suspected source of infection? No. Patient's initial sepsis screen is negative. Risk Assessment: Do you want to hurt yourself or someone else? Patient reports no desire to harm self or others. Onset of symptoms was August 01, 2024 at 15:30. 22:06 Method Of Arrival: Ambulatory bm8 22:06 Acuity: ALTON 3 bm8 Triage Assessment: 22:08 General: Appears in no apparent distress. comfortable, Behavior is calm, cooperative, bm8 appropriate for age, drowsy. Pain: Complains of pain in scalp and back Pain currently is 7 out of 10 on a pain scale. Neuro: No deficits noted. Level of Consciousness is awake, alert, obeys commands, Oriented to person, place, time, situation, Appropriate for age. Cardiovascular: No deficits noted. Denies chest pain, Heart tones S1 S2 present Capillary refill < 3 seconds in bilateral fingers. Respiratory: Airway is patent Trachea midline Respiratory effort is even, unlabored, Respiratory pattern is regular, symmetrical, Breath sounds are clear bilaterally. 22:08 Musculoskeletal: Reports pain in back. bm8 Historical: - Allergies: 22:08 Vancomycin; bm8 - Home Meds: 22:08 Unable to obtain [Active]; bm8 - PMHx: 22:08 COPD; depressive disorder; diabetes mellitus; EDEMA; Hypertensive disorder; RAPID HEART bm8 RATE; - PSHx: 22:08 Thyroidectomy; bm8 - Immunization history:: Adult Immunizations up to date. - Infectious Disease History:: Denies. - Social history:: Smoking status: Patient denies any tobacco usage or history of. Screenin/29 00:26 [facility] ED Fall Risk Assessment (Adult) History of falling in the last 3 months, jb4 including since admission Yes- single mechanical fall (1 pt) Confusion or Disorientation No (0 pts) Intoxicated or Sedated No (0 pts) Impaired Gait No (0 pts) Mobility Assist Device Used No (0 pt) Altered Elimination No (0 pt) Score/Fall Risk Level 0 - 2 = Low Risk Oriented to surroundings, Maintained a safe environment. Abuse screen: Denies threats or abuse. Nutritional screening: No deficits noted. Tuberculosis screening: No symptoms or risk factors identified. Assessment: 08/01 22:45 General: Appears in no apparent distress. uncomfortable, Behavior is. Pain: Complains jb4 of pain in right side of head and back, right forearm Pain does not radiate. Pain currently is 7 out of 10 on a pain scale. Neuro: Level of Consciousness is awake, alert, obeys commands, Oriented to person, place, time, situation. Cardiovascular: Patient's skin is warm and dry. Respiratory: Airway is patent Respiratory effort is even, unlabored, Respiratory pattern is regular, symmetrical. Derm: Skin is intact, Skin is pink, warm \T\ dry. Musculoskeletal: Circulation, motion, and sensation intact. Range of motion: intact in all extremities. 08/02 00:17 Reassessment: Pt resting comfortably in bed with eyes closed, respirations are even and jb4 unlabored. Vital Signs: 08/01 22:06 Pulse 71; Resp 18; Temp 97.1; Pulse Ox 98% ; Weight 78.93 kg; Height 4 ft. 11 in. ; bm8 Pain 710; 08/02 00:17 BP 188 / 78; Pulse 72; Resp 16; Pulse Ox 93% on R/A; jb4 02:33 BP 130 / 69; Pulse 65; Resp 18; Pulse Ox 99% ; cp4 04:00 BP 141 / 70; Pulse 63; Resp 18; Pulse Ox 98% ; cp4 05:26 BP 168 / 86; Pulse 63; Resp 18; Pulse Ox 99% ; cp4 08/01 22:06 Body Mass Index 35.14 (78.93 kg, 149.86 cm) bm8 08/01 22:06 Pain Scale: Adult bm8 ED Course: 08/01 21:45 Patient arrived in ED. jj6 21:47 Tejinder Pearson PA is PHCP. cp 21:47 Tejinder Santos MD is Attending Physician. cp 22:08 Triage completed. bm8 22:08 Arm band placed on left wrist. bm8 22:46 Head C Spine Mpr Wo Con In Process Unspecified. EDMS 22:46 Chest Abd Pelvis Wo Con In Process Unspecified. EDMS 08/02 00:06 Inserted saline lock: 20 gauge in left wrist, using aseptic technique. Blood collected. af3 Flushed with 10 mL NS. 00:06 EKG done, by technical sales support manager. af3 00:26 Patient has correct armband on for positive identification. Bed in low position. Call jb4 light in reach. Side rails up X 1. Provided Education on: plan of care. 00:58 Prince Donahue MD is Hospitalizing Provider. cp 02:33 Hanna Garcia is Primary Nurse. cp4 06:44 No provider procedures requiring assistance completed. Patient admitted, IV remains in cp4 place. Administered Medications: 04:51 CANCELLED (Physician Discretion): morphineor iv 4 mg IVP once over 4 mins cp 05:02 Drug: morphine IVP or IV 2 mg IVP once over 4 mins Route: IVP; Infused Over: 4 mins; cp4 Site: left forearm; 06:45 Follow up: Response: No adverse reaction; Pain is decreased cp4 11:07 Not Given (Other Intervention Used): morphineor iv 2 mg IVP once over 4 mins iw Medication: 06:44 VIS not applicable for this client. cp4 Outcome: 00:58 Decision to Hospitalize by Provider. cp 06:44 Admitted to ER Hold. Please see [facility] for further documentation. cp4 06:44 Condition: stable 06:44 Instructed on the need for admit, 18:50 Patient left the ED. bp Signatures: Dispatcher [employer] EDCT Page, Tejinder, Stephen Akbar cp, RN RN jb4 Darshan Frey RN RN bp Chel Gorman6 Hanna Garcia cp4 Oral Osorio RN RN bm8 Ana Patrick 3 Alanis Brown RN iw Corrections: (The following items were deleted from the chart) 08/01 22:09 22:08 Home Meds: None; bm8 bm8
--- NOTE | 2024-08-02 00:59 | EDPHYS ---
Physician Documentation [facility] Name: Sarah Parnell Age: 73 yrs Sex: Female : 1950 Arrival Date: 08/01/2024 Time: 21:41 Bed 7 Private MD: ED Physician Tejinder Santos HPI: 08/01 22:30 This 73 yrs old Female presents to ER via Ambulatory with complaints of Fall Injury, cp Head Injury Without LOC-Adult, Shoulder Pain, Back Pain, Rt side pain. 22:30 Details of fall: The patient fell from an upright position, while walking, and struck a cp concrete surface. 22:30 Onset: The symptoms/episode began/occurred just prior to arrival. Associated injuries: cp The patient sustained injury to the head, injury to the chest, specifically the right lateral posterior chest and right lateral anterior chest, pain with breathing, pain with movement, tenderness. Historical: - Allergies: 22:08 Vancomycin; bm8 - Home Meds: 22:08 Unable to obtain [Active]; bm8 - PMHx: 22:08 COPD; depressive disorder; diabetes mellitus; EDEMA; Hypertensive disorder; RAPID HEART bm8 RATE; - PSHx: 22:08 Thyroidectomy; bm8 - Immunization history:: Adult Immunizations up to date. - Infectious Disease History:: Denies. - Social history:: Smoking status: Patient denies any tobacco usage or history of. ROS: 22:35 Constitutional: Negative for body aches, chills, fever, poor PO intake, cp 22:35 Cardiovascular: Positive for chest pain, of the right lateral anterior chest and right cp lateral posterior chest, Exam: 22:40 Constitutional: The patient appears in no acute distress, non-diaphoretic, non-toxic, cp well developed, well nourished, 22:40 Head/Face: Normocephalic, atraumatic. cp 22:40 Eyes: Periorbital structures: appear normal, Pupils: equal, round, and reactive to light and accomodation, Conjunctiva: normal, no exudate, no injection, Lids and lashes: appear normal, bilaterally, 22:40 ENT: External ear(s): are unremarkable, Nose: is normal, Mouth: Lips: dry, Oral mucosa: moist, Posterior pharynx: Airway: no evidence of obstruction, patent, 22:40 Neck: C-spine: vertebral tenderness, is not appreciated, crepitus, is not appreciated, 22:40 Chest/axilla: Inspection: normal, Palpation: crepitus, is not appreciated, tenderness, that is moderate, of the right lateral posterior chest and right lateral anterior chest, 22:40 Cardiovascular: Rate: normal, Rhythm: regular, Edema: is not appreciated, JVD: is not appreciated, 22:40 Respiratory: the patient does not display signs of respiratory distress, Respirations: normal, no use of accessory muscles, no retractions, labored breathing, is not present, Breath sounds: are clear throughout, no decreased breath sounds, no stridor, no wheezing, 22:40 Abdomen/GI: Inspection: abdomen appears normal, Palpation: soft, in all quadrants, nontender, in all quadrants, 22:40 Back: vertebral tenderness, is not appreciated, 22:40 Neuro: Orientation: to person, place, situation, Mentation: able to follow commands, slow to respond, somnolent, Motor: moves all fours, no focal deficits, 08/02 01:09 ECG was reviewed by the Attending Physician. Vital Signs: 08/01 22:06 Pulse 71; Resp 18; Temp 97.1; Pulse Ox 98% ; Weight 78.93 kg; Height 4 ft. 11 in. ; bm8 Pain 7/10; 08/02 00:17 BP 188 / 78; Pulse 72; Resp 16; Pulse Ox 93% on R/A; jb4 02:33 BP 130 / 69; Pulse 65; Resp 18; Pulse Ox 99% ; cp4 04:00 BP 141 / 70; Pulse 63; Resp 18; Pulse Ox 98% ; cp4 05:26 BP 168 / 86; Pulse 63; Resp 18; Pulse Ox 99% ; cp4 08/01 22:06 Body Mass Index 35.14 (78.93 kg, 149.86 cm) bm8 08/01 22:06 Pain Scale: Adult bm8 MDM: 08/01 22:17 Medical Screening Exam initiated cp 23:00 Differential diagnosis: closed head injury, contusion, fracture, multiple trauma. 08/02 01:00 Management of patient was discussed with the following: Hospitalist: DR Ibrahim will cp admit after discussion and consult placed with DR Sol, general surgery. 03:00 Data reviewed: vital signs, nurses notes, lab test result(s), EKG, radiologic studies, cp CT scan, plain films, I have discussed the patient's presentation/case with the attending Emergency Department Physician; and as a result, I will admit patient. 03:00 I considered the following discharge prescriptions or medication management in the emergency department Medications were administered in the Emergency Department. See MAR. Independent interpretation of the following test(s) in the Emergency Department EKG: See my EKG interpretation above. Care significantly affected by the following chronic conditions: Diabetes, Hypertension, Chronic Obstructive Pulmonary Disease. Counseling: I had a detailed discussion with the patient and/or guardian regarding the historical points, exam findings, and any diagnostic results supporting the discharge/admit diagnosis, lab results, radiology results, the need for further work-up and treatment in the hospital. Response to treatment: the patient's symptoms have mildly improved after treatment. 08/01 22:27 Order name: Basic Metabolic Panel; Complete Time: 02:55 cp 08/02 02:56 Interpretation: Normal except: NA 135; GFR 73. cp 08/01 22:27 Order name: CBC with Diff; Complete Time: 02:55 cp 08/01 22:27 Order name: Type And Screen; Complete Time: 02:55 cp 08/02 00:36 Order name: PT-INR; Complete Time: 02:55 cp 08/02 00:36 Order name: Ptt, Activated; Complete Time: 02:55 cp 08/02 01:21 Order name: Troponin High Sensitivity; Complete Time: 02:55 EDMS 08/02 01:21 Order name: NT PRO-BNP; Complete Time: 02:55 EDMS 08/02 01:21 Order name: Magnesium; Complete Time: 02:55 EDMS 08/02 04:58 Order name: Magnesium EDMS 08/02 04:58 Order name: Phosphorus EDMS 08/02 04:58 Order name: Urinalysis w/ reflexes EDMS 08/02 04:58 Order name: Basic Metabolic Panel EDMS 08/02 04:58 Order name: Basic Metabolic Panel EDMS 08/02 04:58 Order name: CBC with Automated Diff EDMS 08/02 04:58 Order name: CBC with Automated Diff EDMS 08/02 05:19 Order name: ABO/RH no charge EDMS 08/02 08:01 Order name: Glucose, Ancillary Testing EDMS 08/02 09:39 Order name: T3 Free EDID 08/02 09:39 Order name: T4 Free [facility] 08/02 09:39 Order name: Thyroid Stimulating Hormone EDID 08/02 12:06 Order name: Glucose, Ancillary Testing EDID 08/02 17:15 Order name: Glucose, Ancillary Testing EDID 08/01 22:32 Order name: Head C Spine Mpr Wo Con; Complete Time: 23:51 EDID 08/01 22:33 Order name: Chest Abd Pelvis Wo Con; Complete Time: 23:51 EDID 08/01 23:52 Interpretation: Report reviewed. 08/02 04:58 Order name: Physical Therapy Consult EDID 08/02 05:05 Order name: Occupational Therapy Consult [facility] 08/01 22:27 Order name: Labs collected and sent; Complete Time: 00:06 08/01 23:53 Order name: Vital Signs: to include blood pressure; Complete Time: 00:22 08/02 00:36 Order name: Cardiac monitoring; Complete Time: 00:41 cp 08/02 00:36 Order name: EKG - Nurse/Tech; Complete Time: 01:12 08/02 00:36 Order name: IV Saline Lock; Complete Time: 00:41 08/02 00:36 Order name: O2 Per Protocol; Complete Time: 00:41 08/02 00:36 Order name: O2 Sat Monitoring; Complete Time: 00:41 EC:09 Rate is 71 beats/min. Rhythm is regular. [place] interval is normal. QRS interval is cp prolonged at 104 msec. QT interval is normal. T waves are Inverted in lead aVR. Interpreted by me. Reviewed by me. Administered Medications: 04:51 CANCELLED (Physician Discretion): morphineor iv 4 mg IVP once over 4 mins cp 05:02 Drug: morphine IVP or IV 2 mg IVP once over 4 mins Route: IVP; Infused Over: 4 mins; cp4 Site: left forearm; 06:45 Follow up: Response: No adverse reaction; Pain is decreased cp4 11:07 Not Given (Other Intervention Used): morphineor iv 2 mg IVP once over 4 mins iw Disposition: 08/03 18:17 Chart complete. cp Disposition Summary: 08/02/24 00:58 Hospitalization Ordered Notes: Hospitalization Status: Observation cp Provider: Prince Rowan cp Condition: Stable cp Problem: new cp Symptoms: have improved cp Bed/Room Type: Standard cp Location: Telemetry/MedSurg (Inpatient)(08/02/24 15:16) sp Room Assignment: 230(08/02/24 15:16) sp Diagnosis - Fall on same level from slipping, tripping and stumbling with subsequent striking cp against object - Multiple fractures of ribs, right side cp Forms: - Medication Reconciliation Form cp - SBAR form cp - Leadership Thank You Letter cp Addendum: 08/05/2024 15:37 Co-signature as Attending Physician, Tejinder Santos MD I agree with the assessment and c amato plan of care. Signatures: Dispatcher [employer] EDMS Tejinder Santos MD MD cha Pinkerton, Shawna sp Page, Corey, PA PA cp Garcia, Cindy, RN RN cg Hanna Garcia cp4 Oral Osorio RN RN bm8 Alanis Brown RN iw Corrections: (The following items were deleted from the chart) 08/01 22:09 22:08 Home Meds: None; bm8 bm8 22:27 22:27 BASIC METABOLIC PANEL+C.LAB.BRZ ordered. EDMS EDMS 22:27 22:27 CBC+H.LAB.BRZ ordered. EDMS EDMS 22:27 22:27 TYPE AND SCREEN+BB.LAB.BRZ ordered. EDMS EDMS 22:32 22:27 Head C Spine Cap Wo Con+CT.RAD.BRZ ordered. EDMS EDMS 08/02 01:20 00:37 MAGNESIUM+C.LAB.BRZ ordered. EDMS EDMS 01:20 00:37 PROBNP+C.LAB.BRZ ordered. EDMS EDMS 01:20 00:37 Troponin High Sensitivity+C.LAB.BRZ ordered. EDMS EDMS 03: 00:58 Telemetry/MedSurg (observation) cp cg 03:23 00:58 cp cg 04:51 04:50 morphine IVP or IV 4 mg IVP once over 4 mins ordered. cp cp 15:16 03:23 [facility] ER HOLD cg sp 15:16 03:23 ERHOLD- cg sp
[2024-08-02 02:16] LABS: Absolute Basophils 0.1 K/uL (0-0.5); Absolute Eosinophils 0.3 K/uL (0-0.5); Absolute Lymphocytes (CBC) 2.5 K/uL (0.7-4.9); Absolute Monocytes 0.9 K/uL (0.1-1.3); Eosinophils % 3.9 % (0-4.4); Hematocrit 37.4 % (36.0-45.0); Lymphocytes % 28.5 % (15.3-44.8); MCH 30.4 pg (27.0-35.0); MCHC 34.8 g/dL (32.0-36.0); MCV 87.3 fL (80-100); MPV 8.1 fL (7.6-11.3); Monocytes % 10.2 % (3.3-12.3); Neutrophils % 56.4 % (41.7-73.7); Platelets 189 thou/uL (152-406); RBC Red Blood Cell Count 4.28 M/uL (3.86-4.86); Red Cell Distribution Width 13.5 % (12.1-15.2)
[2024-08-02 02:20] LABS: PTT, Activated Partial Thromb 31.2 SECONDS (27.2-37.4); Protime INR 1.15
[2024-08-02 02:29] LABS: Anion Gap 7.8 mEq/L (5.0-15.0); Magnesium 2.3 mg/dL (1.6-2.4); Potassium 3.8 mEq/L (3.5-5.1); Troponin High Sensitivity 46.3 pg/mL (<58.9)
[2024-08-02] MEDS ORDERED: ACETAMINOPHEN 500 MG TAB PO PRN (04:54)
[2024-08-02] MEDS ORDERED: ONDANSETRON 4 MG/2 ML VIAL IV PRN (04:54)
[2024-08-02] MEDS: NA CHLORIDE 0.9% 1,000 ML IV SCH (05:00)
[2024-08-02] MEDS ORDERED: MORPHINE 2 MG/ML SYR ONE (05:00)
[2024-08-02] MEDS: LIDOCAINE 4% PATCH TOP SCH (05:01)
--- NOTE | 2024-08-02 05:01 | P.HP ---
Certification for Inpatient Patient admitted to: Observation With expected LOS: <2 Midnights Practitioner: I am a practitioner with admitting privileges, knowledge of patient current condition, hospital course, and medical plan of care. Services: Services provided to patient in accordance with Admission requirements found in Title 42 Section 412.3 of the Code of Federal Regulations Patient History Date of Service: 08/02/24 Reason for admission: Traumatic fall History of Present Illness: Patient is a 73-year-old female brought in after fall incident. History obtained from signout from the ER and some from the patient. She reportedly underwent an MRI of the brain and was given Valium for the study. The indication for the MRI was for frequent falls and unsteady gait. Apparently, patient became altered after the MRI. Suspecting an adverse reaction to the problem. She lives at home, alone and ambulates with a walker. Her neighbor found her in the backyard. Trauma workup in the ER revealed multiple rib fractures. During evaluation, patient was still drowsy. ER has consulted trauma surgery for the above fractures. Allergies vancomycin Adverse Reaction (Verified 03/19/24 09:43) Itching/Hives/Rash Home Medications: Aspirin [Aspirin EC 81 MG] 81 mg PO DAILY 10/04/23 Calcium Carbonate [Calcium] 600 mg PO DAILY 10/04/23 Cholecalciferol (Vitd3)/Vit K2 [Vit D3-Vit K2 125-100 Mcg Sfgl] 1 each PO DAILY 10/04/23 Insulin Detemir [Levemir Flexpen] 20 unit SQ BID 10/04/23 Krill/Om-3/Dha/Epa/Phospho/Ast [Krill Oil 500 mg Softgel] 500 mg PO BEDTIME 10/04/23 Levothyroxine Sodium [Unithroid] 150 mcg PO DAILY 10/04/23 Lurasidone HCl [Latuda] 80 mg PO BEDTIME 10/04/23 Magnesium Oxide [Magnesium] 1 tab PO BEDTIME 10/04/23 Metoprolol Succinate [Toprol Xl*] 12.5 mg PO DAILY 10/04/23 Montelukast Sodium [Singulair] 10 mg PO DAILY 10/04/23 Oxcarbazepine [Trileptal] 300 mg PO BID 10/04/23 Rosuvastatin Calcium 20 mg PO DAILY 10/04/23 Topiramate 50 mg PO BEDTIME 10/04/23 Trazodone HCl [Desyrel] 200 mg PO BEDTIME 10/04/23 Ubidecarenone/Vit E Acet [Co Q-10 100 mg Softgel] 100 mg PO DAILY 10/04/23 Vit A/C/E/Zinc/Selenium/Copper [Vision Formula Tablet] 1 each PO BEDTIME 10/04/23 hydroCHLOROthiazide [Hydrochlorothiazide] 12.5 mg PO DAILY 10/04/23 lisinopriL [Zestril] 2.5 mg PO DAILY 10/04/23 Bupropion *Xl* [Wellbutrin XL*] 150 mg PO DAILY 03/19/24 Ibuprofen [Motrin] 600 mg PO BID PRN 03/19/24 Semaglutide [Ozempic] 0.5 mg SQ SEECOM 03/19/24 - Past Medical/Surgical History Diabetic: Yes -: hypothyroidism -: depression -: bipolar -: sleep apnea -: anxiety -: hypertension -: Possible COPD -: ovarian cyst -: abdominal surg infection -: lap band -: thyroidectomy - Social History Alcohol use: No CD- Drugs: No Caffeine use: No Physical Examination - Physical Exam General: Acute distress, Confused HEENT: Atraumatic, Normocephalic Cardiovascular: No edema, Normal pulses, Regular rate/rhythm, Normal S1 S2, Systolic murmur Neurological: Other (Confused) - Studies Laboratory Data (last 24 hrs) 08/02/24 08/02/24 08/02/24 01:56 01:56 01:56 WBC 8.80 Hgb 13.0 Hct 37.4 Plt Count 189 PT 13.0 INR 1.15 APTT 31.2 Sodium 135 L Potassium 3.8 BUN 16 Creatinine 0.84 Glucose 77 Magnesium 2.3 08/02/24 00:36 WBC Hgb Hct Plt Count PT INR APTT Sodium Potassium BUN Creatinine Glucose Magnesium Cancelled Assessment and Plan - Problems (Diagnosis) (1) COPD (chronic obstructive pulmonary disease) Current Visit: No Status: Acute (2) Bipolar 1 disorder Onset Date: 07/13/16 Current Visit: No Status: Chronic (3) Essential hypertension Onset Date: 07/13/16 Current Visit: No Status: Chronic (4) Obesity (BMI 30-39.9) Onset Date: 07/13/16 Current Visit: No Status: Chronic (5) Sleep apnea Onset Date: 07/13/16 Current Visit: No Status: Chronic Qualifiers: (6) Type 2 diabetes mellitus Onset Date: 07/13/16 Current Visit: No Status: Chronic Qualifiers: (7) Vertigo Onset Date: 07/13/16 Current Visit: No Status: Chronic - Plan Assessment This is a 73-year-old female is being admitted following a traumatic fall that resulted in multiple right-sided rib fractures. She is satting well. Patient was medicated earlier with Valium noted to undergo MRI brain which was ordered for evaluation of frequent falls and unsteady gait. Trauma workup has been consulted Traumatic fall Unsteady gait Vertigo Hypertension Type 2 diabetes mellitus Obesity Obstructive sleep apnea Plan: Will admit under observation with telemetry Lidocaine patch be applied to fractured ribs Incentive spirometry Trauma surgery consulted PT/OT before discharge Multimodal pain regimen No need to repeat brain MRI Will get a 2D echo - Advance Directives Does patient have a Living Will: No Does patient have a Durable POA for Healthcare: No
[2024-08-02] MEDS: KETOROLAC 30 MG/ML INJ IV SCH (05:02)
[2024-08-02 06:06] VITALS: BMI 35.1
[2024-08-02] MEDS ORDERED: LIDOCAINE 4% PATCH ONE (06:08)
[2024-08-02] MEDS ORDERED: KETOROLAC 30 MG/ML INJ ONE ×2 (06:08→14:21)
[2024-08-02] MEDS ORDERED: NA CHLORIDE 0.9% 1,000 ML ONE ×2 (06:09→16:57)
[2024-08-02 08:23] LABS: Magnesium 2.4 mg/dL (1.6-2.4); Phosphorus 3.2 mg/dL (2.5-4.9)
[2024-08-02 09:38] LABS: T3 Free 2.13 pg/mL (2.18-3.98); Thyroid Stimulating Hormone 0.203 uIU/mL (0.358-3.740)
--- NOTE | 2024-08-02 16:56 | CON ---
Date of Consultation: 08/02/2024 Brief History Of Present Illness: The patient is a 73-year-old female brought in by EMS af ter falling from standing. She reportedly went to get an MRI of her brain, as she had a history of h aving frequent falls and an unsteady gait. She states she believes she was given Valium for this wilfredo dy. After she got home, she was in her driveway and felt somewhat lightheaded once again, fell over on her right side as she was unable to use a walker properly. Her neighbor found her in her backyard . After she moved from the driveway, she was brought in by EMS by report. She still had some residu al drowsiness in the ER. During my examination, she only complains of some mild left-sided chest ten derness, which is predominantly positional. However, she has no shortness of breath. She is able to take normal inspiratory breaths with only minimal discomfort and pain on the left side. She denies LOC. Denies syncope. She is not amnestic to the event. She has no pain anywhere else in her body o ther than on the right chest wall. Past Medical History: Significant for hypothyroidism, depression, bipolar, sleep apnea, anxiety, hyp ertension, COPD, ovarian cysts. Past Surgical History: Includes thyroidectomy, lap band, and abdominal surgical infections after pre vious surgeries as described above. Allergies: TO VANCOMYCIN. Home Medications: Include aspirin, calcium, vitamin D3, Levemir, Unithroid, Latuda, magnesium, Topro l, Singulair, Trileptal, , topiramate, trazodone, hydrochlorothiazide, lisinopril, Wellbutr in, Motrin, and Ozempic. The patient denies alcohol, recreational drug use, or tobacco usage. Review of Systems: Ten-point review of systems other than HPI, denies. Physical Examination: General: At the time of examination, she is awake, alert, and oriented. Psychiatric: She is appropriate and conversive. HEENT: She is normocephalic. Her sclerae are anicteric. Her mucous membranes are moist. Oropharyn x is clear. Neck: Supple without JVD. Chest: Has normal expansion and excursion. She has some right-sided chest wall tenderness, otherwis e no other acute findings. Abdomen: Soft, nontender, nondistended. Pelvis: Stable. Extremities: No clubbing, cyanosis, or edema. She has obesity overall. Laboratory Data: She had a laboratory exam, which revealed a white blood cell count of 8.8, hemoglob in is 13.0, hematocrit of 37.4, platelet count was 189. PT 13.0, INR 1.13, PTT is 31.2. Sodium 135, potassium 3.8, chloride 108, carbon dioxide 27, BUN 16, creatinine 0.8, glucose is 77, phosphorus 3. 2, magnesium 2.4. She had imaging performed, which included a head CT of the C-spine, which showed n o intracranial abnormality, no acute fracture or traumatic malalignment of the cervical spine. She h ad a CT traumagram, which is officially read as multiple right-sided rib fractures including the righ t fourth through eighth ribs, most of which are nondisplaced, the right eighth rib fracture is segmen juan carlos and does have some mild displacement posteriorly, no pneumothorax, no evidence of significant tra charanjit. Assessment And Plan: This is a 73-year-old woman who comes in after a fall with some multiple right- sided rib fractures. 1. IV fluid. 2. Continue medical management. 3. Incentive spirometry. 4. The patient does not require any oxygen supplementation. 5. Pain management. 6. I recommend giving the patient a sling to remind her of the right side to protect the right side o f her chest wall while ambulatory. 7. If the patient is able to meet criteria with respect to incentive spirometry and pain management, it is appropriate for her to go home when medically cleared from a medical standpoint for all her med ical comorbidities, which might be contributing to her overall following situation. I have discussed the case with the patient, who displayed understanding of the above-stated plan and agreed to proceed as indicated. ROMELIA/NEGRO Voice ID: [id number] Report ID: [id number]
--- NOTE | 2024-08-02 17:58 | P.PN ---
Date of Service: 08/02/24 Patient seen and examined on rounds this morning feels ok, reports pain in her chest and back breathing comfortably at rest neighbor at bedside -reports patient has had more frequent falls, and has been falling over the last 6 months, She is seeing Dr. Ricketts as an outpatient recently, had an EEG with global/generalized slowing waves nothing focal Had an MRI yesterday and received Valium since she is claustrophobic. The neighbor reports patient took 2 tabs of the Valium And when she was home she went for a walk and she slipped on the concrete and fell. Patient has not yet ambulated today Physical therapy consulted Patient with recurrent/progressive falls, lives alone She typically uses a cane to ambulate, however neighbor states that the patient should really be using her walker She typically favors and puts weight more on her right side/right arm which is the side she broke her ribs She will need to see improvement in evaluation and may possibly need SNF given her fall, broken ribs, and restriction of her right arm with her rib fractures Need to confirm home meds and restart
[2024-08-02] MEDS: TRAZODONE 50 MG TABLET PO ONE (22:11)
[2024-08-03 07:23] LABS: Absolute Basophils 0.1 K/uL (0-0.5); Absolute Eosinophils 0.5 K/uL (0-0.5); Absolute Lymphocytes (CBC) 1.7 K/uL (0.7-4.9); Absolute Monocytes 0.6 K/uL (0.1-1.3); Absolute Neutrophil 3.7 K/uL (1.8-8.0); Basophils % 1.2 % (0-1.3); Eosinophils % 7.5 % (0-4.4); Hematocrit 35.3 % (36.0-45.0); Hemoglobin 12.3 g/dL (12.0-15.0); Lymphocytes % 25.7 % (15.3-44.8); MCH 30.2 pg (27.0-35.0); MCHC 34.7 g/dL (32.0-36.0); MCV 87.1 fL (80-100); MPV 7.7 fL (7.6-11.3); Monocytes % 9.6 % (3.3-12.3); Nucleated Red Blood Cells % 0.1 % (0-0); Platelets 180 thou/uL (152-406); RBC Red Blood Cell Count 4.06 M/uL (3.86-4.86); Red Cell Distribution Width 13.8 % (12.1-15.2)
[2024-08-03] MEDS: CODEINE 30MG/APAP 300MG TAB PO PRN (10:39)
--- NOTE | 2024-08-03 12:13 | P.PN ---
Date of Service: 08/03/24 Subjective: ROS: 10 point ROS as noted above, otherwise negative Physical Exam: GEN: Alert, oriented, NAD CV: Regular rate and rhythm, no edema Pulm: Nonlabored respirations on room air, clear bilaterally ABD: soft, nontender, nondistended Neuro: Normal speech, normal affect Problem List: Right 4th-5th rib fractures post fall Generalized Weakness, fatigue Hypothyroidism Depression/anxiety Hypertension Had an MRI and received Valium since she is claustrophobic. The neighbor reports patient took 2 tabs of the Valium neighbor at bedside reports patient has had more frequent falls, and has been falling over the last 6 months She is seeing Dr. Ricketts as an outpatient recently, had an EEG with global/generalized slowing waves nothing focal She went home after MRI and fell at home after slipping on some wet concrete She reports lower back pain and lower chest discomfort around fractures ribs site, otherwise doing okay. Denies shortness of breath CT chest/abdomen in ED revealed multiple right-sided rib fractures involving 4 th-8th ribs, mostly nondisplaced. Right 8th rib is segmental with some mild displacement posteriorly. PT consult - patient ambulated ~200 ft with RW with minimal assistance on 08/02 confirm home meds, restart as appropriate pain control, IV fluids 08/03 - Tylenol #3 added, colace added Feeling better today continue PT - will see how she does with ambulation prior to dc Denies shortness of breath, on room air Code: Full Dispo: Home Time Spent Managing Pts Care (In Minutes): 55
--- NOTE | 2024-08-03 12:33 | P.PN ---
Subjective Date of Service: 08/03/24 Chief Complaint: Traumatic fall Subjective: Improving (No significant changes, patient has similar pain to yesterday,) Physical Examination - Vital Signs Temperature: 98.1 F Blood Pressure: 149/60 Pulse: 74 Respirations: 20 Pulse Ox (%): 98 - Physical Exam General: Alert, In no apparent distress, Oriented x3, Cooperative Respiratory: Clear to auscultation bilaterally, Normal air movement, Other (No changes from previous exam with respect to tenderness or other findings.) Assessment And Plan - Current Problems (Diagnosis) (1) Multiple rib fractures Current Visit: Yes Status: Acute Plan: -Patient is a 73-year-old woman with multiple right-sided rib fractures. -Continue medical management -Ambulate with assist with walker -Cough and deep breathing exercises -Incentive spirometry -Pain control -Patient can have a sling to remind her to brace the area when sitting in chair
[2024-08-03 14:53] VITALS: O2SAT 98
[2024-08-03 18:26] VITALS: BP 179/73; TEMP 98.4
[2024-08-03] MEDS ORDERED: DOCUSATE NA 100 MG CAP PO SCH (21:00)
[2024-08-03] MEDS ORDERED: TRAZODONE 50 MG TABLET PO ONE (21:56)
--- NOTE | 2024-08-04 06:42 | P.DS ---
Admission Date: 08/02/24 Discharge Date: 08/03/24 Disposition: ROUTINE DISCHARGE Discharge Condition: GOOD Reason for Admission: Traumatic fall Consultations: General surgery - Dr. Sol Brief History of Present Illness: 73-year-old female brought in after fall incident. History obtained from signout from the ER and some from the patient. She reportedly underwent an MRI of the brain and was given Valium for the study. The indication for the MRI was for frequent falls and unsteady gait. Apparently, patient became altered after the MRI. Suspecting an adverse reaction to the problem. She lives at home, alone and ambulates with a walker. Her neighbor found her in the backyard. Trauma workup in the ER revealed multiple rib fractures. During evaluation, patient was still drowsy. ER has consulted trauma surgery for the above fractures. Hospital Course: Problem List: Right 4th-8th rib fractures post fall Generalized Weakness, fatigue IDDM2 with hypoglycemia Hypothyroidism Depression/anxiety Hypertension Physician discharge instructions: Patient presented to the ED after sustaining a fall at home after slipping on some wet concrete. She did report hitting her head but denies loss of conscious. CT chest/abdomen in ED revealed multiple right-sided rib fractures involving 4th-8th ribs, mostly nondisplaced. Right 8th rib with some mild displacement posteriorly. No pneumothorax seen or evidence of significant trauma seen on imaging. CT head was negative for any acute findings. No traumatic findings. On arrival she reported dealing with some lower back pain and lower chest discomfort around fractured ribs site, otherwise doing okay. Patient was evaluated by Dr. Sol, who recommending medical management with pain control and sling as needed. No findings to warrant surgical intervention. Patient was monitored overnight, breathing comfortably on room air, pain tolerable with oral medications, and was deemed stable for discharge. She worked with PT and was able to ambulate ~200 ft with RW with minimal assistance. She denied any dizziness of worsening shortness of breath with ambulation. Follow up with PCP within the next week for further management. Medications: Tylenol #3 as needed for pain continue home meds as previously prescribed. glucose levels were noted to be low on admission, recommend cutting insulin dose in half, and monitoring levels, follow up with PCP Follow up: PCP 3-5 days Please call to schedule / confirm appointments Physical Exam: GEN: Alert, oriented, NAD CV: Regular rate and rhythm, no edema Pulm: Nonlabored respirations on room air, clear bilaterally ABD: soft, nontender, nondistended Neuro: Normal speech, normal affect Vital Signs/Physical Exam: Temp Pulse Resp BP Pulse Ox 98.4 F 79 18 179/73 H 98 08/03/24 16:00 08/03/24 16:00 08/03/24 16:00 08/03/24 16:00 08/03/24 16:00 Laboratory Data at Discharge: WBC 6.60 thou/uL (4.3-10.9) 08/03/24 07:08 Hgb 12.3 g/dL (12.0-15.0) 08/03/24 07:08 Hct 35.3 % (36.0-45.0) L 08/03/24 07:08 Plt Count 180 thou/uL (152-406) 08/03/24 07:08 PT 13.0 SECONDS (10-13.0) 08/02/24 01:56 INR 1.15 08/02/24 01:56 APTT 31.2 SECONDS (27.2-37.4) 08/02/24 01:56 Sodium 137 mEq/L (136-145) 08/03/24 07:08 Potassium 4.0 mEq/L (3.5-5.1) 08/03/24 07:08 BUN 19 mg/dL (7-18) H 08/03/24 07:08 Creatinine 0.77 mg/dL (0.55-1.02) 08/03/24 07:08 Glucose 77 mg/dL (74-106) 08/03/24 07:08 Phosphorus 3.2 mg/dL (2.5-4.9) 08/02/24 07:55 Magnesium 2.4 mg/dL (1.6-2.4) 08/02/24 07:55 Home Medications: Aspirin [Aspirin EC 81 MG] 81 mg PO DAILY 10/04/23 Krill/Om-3/Dha/Epa/Phospho/Ast [Krill Oil 500 mg Softgel] 500 mg PO BEDTIME 10/04/23 Levothyroxine Sodium [Unithroid] 150 mcg PO DAILY 10/04/23 Lurasidone HCl [Latuda] 80 mg PO BEDTIME 10/04/23 Magnesium Oxide [Magnesium] 1 tab PO BEDTIME 10/04/23 Metoprolol Succinate [Toprol Xl*] 12.5 mg PO DAILY 10/04/23 Montelukast Sodium [Singulair] 10 mg PO DAILY 10/04/23 Oxcarbazepine [Trileptal] 300 mg PO BID 10/04/23 Rosuvastatin Calcium 20 mg PO DAILY 10/04/23 Topiramate 50 mg PO BEDTIME 10/04/23 Trazodone HCl [Desyrel] 200 mg PO BEDTIME 10/04/23 lisinopriL [Zestril] 5 mg PO DAILY 10/04/23 Ibuprofen [Motrin] 600 mg PO BID PRN 03/19/24 Semaglutide [Ozempic] 0.5 mg SQ SEECOM 03/19/24 Bupropion HCl [Wellbutrin Sr] 200 mg PO DAILY 08/03/24 Codeine/APAP [Tylenol #3*] 1 tab PO Q6H PRN #15 tab 08/03/24 Insulin Detemir [Levemir] 12 units SQ BID 08/03/24 Levothyroxine Sodium [Unithroid] 6 tab PO DAILY 08/03/24 Lurasidone HCl [Latuda] 80 mg PO BEDTIME 08/03/24 Magnesium Oxide [Magnesium] 400 mg PO BEDTIME 08/03/24 Mirabegron [Mirabegron ER] 25 mg PO DAILY 08/03/24 Semaglutide [Ozempic] 0.5 mg SQ EVERY 7TH DAY 08/03/24 Topiramate 50 mg PO BEDTIME 08/03/24 Trazodone HCl 200 mg PO BEDTIME 08/03/24 New Medications: Codeine/APAP [Tylenol #3*] 1 tab PO Q6H PRN #15 tab PRN Reason: Pain Scale 5-7 (Moderate) Physician Discharge Instructions: Physician discharge instructions: Patient presented to the ED after sustaining a fall at home after slipping on some wet concrete. She did report hitting her head but denies loss of conscious. CT chest/abdomen in ED revealed multiple right-sided rib fractures involving 4th-8th ribs, mostly nondisplaced. Right 8th rib with some mild displacement posteriorly. No pneumothorax seen or evidence of significant trauma seen on imaging. CT head was negative for any acute findings. No traumatic findings. On arrival she reported dealing with some lower back pain and lower chest discomfort around fractured ribs site, otherwise doing okay. Patient was evaluated by Dr. Sol, who recommending medical management with pain control and sling as needed. No findings to warrant surgical intervention. Patient was monitored overnight, breathing comfortably on room air, pain tolerable with oral medications, and was deemed stable for discharge. She worked with PT and was able to ambulate ~200 ft with RW with minimal assistance. She denied any dizziness of worsening shortness of breath with ambulation. Follow up with PCP within the next week for further management. Medications: Tylenol #3 as needed for pain continue home meds as previously prescribed. glucose levels were noted to be low on admission, recommend cutting insulin dose in half, and monitoring levels, follow up with PCP Follow up: PCP 3-5 days Please call to schedule / confirm appointments Followup: Chrissy Ness DO [Primary Care Provider] - Time spent managing pt's care (in minutes): 45
--- NOTE | 2024-08-04 11:25 | EKG ---
Test Date: 2024-08-02 Test Time: 01:05:26 It Applications Analyst: AF MEASUREMENT RESULTS: Intervals: Rate: 71 ID: [id number] QRSD: 104 QT: 422 QTc: 458 [place]: P: 64 ID: [id number] QRS: 36 T: 63 INTERPRETIVE STATEMENTS: Normal sinus rhythm Cannot rule out Anterior infarct, age undetermined Abnormal ECG Compared to ECG 07/15/2024 15:44:23 No significant changes Electronically Signed On 08-04-24 11:20:34 CDT by Lavell Bone
== END 2024-08-03 18:20 | disposition home or self-care (01) | DRG 185 ==
LOC: ER 21:41 → ERHOLD 08-02 04:54 → 2ND 08-02 15:41 → OBSVTOIN 08-02 16:53
PROVIDERS: ADMIT Internal Medicine; ATTEND Hospitalist
DX: S22.41XA Multiple fractures of ribs, right side, initial encounter for closed fracture (principal); I10 Essential (primary) hypertension; E03.9 Hypothyroidism, unspecified; E11.649 Type 2 diabetes mellitus with hypoglycemia without coma; F31.9 Bipolar disorder, unspecified; F41.9 Anxiety disorder, unspecified; E66.9 Obesity, unspecified; G47.33 Obstructive sleep apnea (adult) (pediatric); J44.9 Chronic obstructive pulmonary disease, unspecified; S29.9XXA Unspecified injury of thorax, initial encounter; S09.90XA Unspecified injury of head, initial encounter; Z60.2 Problems related to living alone; Z79.4 Long term (current) use of insulin; Z88.1 Allergy status to other antibiotic agents; Z68.35 Body mass index [BMI] 35.0-35.9, adult; Z79.82 Long term (current) use of aspirin; Z79.890 Hormone replacement therapy; Z79.899 Other long term (current) drug therapy; R42 Dizziness and giddiness; W01.198A Fall on same level from slipping, tripping and stumbling with subsequent striking against other object, initial encounter; Y93.01 Activity, walking, marching and hiking; Y92.89 Other specified places as the place of occurrence of the external cause; Y99.9 Unspecified external cause status
CPT/HCPCS: 36415; 70450; 71250; 72125; 74176; 80048; 82947; 83735; 83880; 84100; 84439; 84443; 84481; 84484; 85025; 85610; 85730; 86850; 86900; 86901; 93005; 96374; 97116; 97161; 99285; G0378; J2003; J2270; J7030